=== PATIENT | female | born 1990 | race Caucasian/White ===

== ENCOUNTER → 2017-04-29 | Outpatient (CLI) | payer BC, MEDICAID ==
[~2017-04-29] MED LIST: AMOX500C2 PO; BENZ100C18 PO; BUTA1CAP39 PO; CEPH500C PO; CLIN300C3 PO; CYCL5TAB11 PO; FERR-54 PO; HYDR-3812 PO; IBP600T1 PO; IBP800T PO; IBUP-1773 PO; MDR10T PO; METR500T PO; NAPR-243 PO; NITR-65 PO; NITR100C3 PO; OCP; OMEP-10 PO; OXYC-12 PO; PHEN200T27 PO; PHEN37.555 PO; PHEN95TA30; PREN-37 PO; PREN1TAB39 PO; PRM25T PO; PROP1TAB77 PO; SPRINTEC; SULF1TAB35 PO; TPR25T PO; TRIA16.5 NS; YAZ; fiorinal
--- NOTE | 2017-04-29 15:31 | Diagnostic Imaging Report ---
INDICATION: Left lower quadrant abdominal pain. TECHNIQUE: Multiple real time mcdonnell scale sonographic images were obtained of the pelvis transabdominally and transvaginally. CORRELATION STUDY: None FINDINGS: Transabdominal imaging limited. UTERUS/ENDOMETRIUM: Uterus measures 8.0 x 3.9 x 3.4 cm. Endometrial thickness is 4 mm. Likely scar-like formation of the lower uterus from prior section. RIGHT OVARY: 2.6 x 2.0 x 2.0 cm. LEFT OVARY: 1.8 x 1.9 x 2.7 cm. Small hypoechoic mass is most compatible with cysts of both ovaries at approximately 1.2-1.3 cm in size. Additional smaller cyst and/or follicle is also present. Vascular flow is demonstrated to both ovaries. No significant free pelvic fluid. IMPRESSION: 1. Likely physiologic cysts and/or follicles of both ovaries. Otherwise, unremarkable pelvic ultrasound evaluation. Dictated by: Dictated on workstation # [id number]
== END ==
LOC: RAD 14:10
PROVIDERS: ATTEND Nurse Practitioner Community Health
DX: N83.201 Unspecified ovarian cyst, right side (principal); N83.202 Unspecified ovarian cyst, left side; R10.32 Left lower quadrant pain
CPT/HCPCS: 76830; 76856

== ENCOUNTER 2018-07-24 20:02 | Emergency (ER) | payer BC ==
[~2018-07-24] VITALS: Ht 160 cm; Wt 94.8 kg
[~2018-07-24 20:02] MED LIST changes: +ACHD5005 PO; -HYDR-3812 PO
--- OUTSIDE RECORDS SUMMARY | 2018-07-24 20:51 | XMS REPORT ---
Author Author JOSETTE GALEANA Organization [facility] Address [address] [place] [address] Care Team Providers Care Lacrosse Player Name Role Phone JOSETTE GALEANA Unavailable PROBLEMS Type Condition ICD9-CM Code RIQ93-DY Code Onset Dates Condition Status SNOMED Code Problem Constipation, unspecified constipation type K59.00 Active 02240470 Problem Chronic daily headache R51 Active 611896456 Problem Episodic cluster headache, not intractable G44.019 Active 233912943 Problem Family history of diabetes mellitus (DM) Z83.3 Active 214316922 ALLERGIES No Information ENCOUNTERS Encounter Location Date Diagnosis [facility] [id number] [place] [address] 41539- 2300 Jun, Encounter for Depo-Provera contraception Z30.42 [facility] [id number] [place] [address] 56019 -8587 15 May, 2018 Dysuria R30.0 and Acute cystitis without hematuria N30.00 [facility] [id number] [place] [address] 76540- 6620 Mar, Encounter for Depo-Provera contraception Z30.42 [facility] [id number] [place] [address] 72565- 0186 Dec, [facility] [id number] [place] [address] 58080- 9485 Dec, Encounter for Depo-Provera contraception Z30.42 [facility] [id number] [place] [address] 94537- 8000 Sep, Encounter for Depo-Provera contraception Z30.42 [facility] [id number] [place] [address] 08987- 7023 Sep, Well woman exam Z01.419 and Cervical cancer screening Z12.4 [place] [id number] [place] [address] 66357- 6549 Jul, Sports physical Z02.5 and Family history of diabetes mellitus (DM) Z83.[address] 85933- 4032 Jun, Encounter for Depo-Provera contraception Z30.42 [facility] [address] [place] [address] 34299 -6977 Jun, Other viral agents as the cause of diseases classified elsewhere B97.89 and Acute upper respiratory infection, unspecified J06.[address] 49933- 2559 Apr, Abdominal pain R10.9 and LLQ abdominal pain R10.32 [facility] [address] 10398 -5152 Apr, Abdominal pain R10.9 and Constipation, unspecified constipation type K59.[address] 02606- 4536 Mar, Encounter for Depo-Provera contraception Z30.42 [facility] [place] [id number] [place] [address] 35473 -7597 Jan, Allergic contact dermatitis, unspecified trigger L23.[address] 04303- 2955 Jan, Encounter for Depo-Provera contraception Z30.42 [facility] [address] 31818 -2526 Dec, Acute middle ear effusion, bilateral H65.[address] 29103- 7471 November, Alopecia L65.9 and Bilateral carpal tunnel syndrome G56.03 [address] [place] [address] 25164- 3230 05 Oct, 2016 Encounter for Depo-Provera contraception Z30.42 [place] [address] 28394- 1489 17 Aug, 2016 Acute bilateral low back pain without sciatica M54.5 [facility] [id number] [place] [address] 77311 -0988 14 Aug, 2016 Sore throat J02.9 ; Other viral agents as the cause of diseases classified elsewhere B97.89 and Acute upper respiratory infection, unspecified J06.9 [facility] [address] [id number] Jul, Dental examination Z01.20 [place] [id number] [place] [address] 12352- 0357 10 Jul, 2016 Encounter for Depo-Provera contraception Z30.42 [place] [address] 41507- 1323 05 Jun, 2016 Routine adult health maintenance Z00.00 [place] [address] 05225- 1996 Apr, NADIRA (secretory otitis media), unspecified laterality H65.90 ; Dizziness R42 and History of UTI Z87.440 [place] [id number] [place] [address] 55430- 3720 10 Apr, 2016 control counseling Z30.9 and Encounter for Depo- Provera contraception Z30.42 [place] [id number] [place] [address] 75721- 7255 19 Mar, 2016 [place] [address] 57434- 2158 16 Mar, 2016 Chronic daily headache R51 and Family history of diabetes mellitus (DM) Z83.3 [place] [id number] [place] [address] 30018- 1100 14 Mar, 2016 Chronic daily headache R51 ; Episodic cluster headache, not intractable G44.019 ; Family history of diabetes mellitus (DM) Z83.3 and Environmental allergies Z91.09 [facility] [id number] [place] [address] 07805- 5125 Feb, Encounter to establish care Z76.89 and Migraine with aura and without status migrainosus, not intractable G43.109 [facility] [id number] [place] [address] 44802- 1477 Oct, [facility] [id number] [place] [address] 36858- 9704 Oct, [facility] [id number] [place] [address] 02074- 7664 Sep, [facility] [id number] [place] [address] 62702- 6442 Sep, [facility] [id number] [place] [address] 84678- 2256 Apr, [facility] [id number] [place] [address] 76705- 8940 Apr, [facility] [id number] [place] [address] 16474- 4101 Jan, [facility] [id number] [place] [address] 29382- 9742 Jan, [facility] [id number] [place] [address] 44524- 8424 Jul, [facility] [id number] [place] [address] 67246- 4332 Jul, [facility] [id number] [place] [address] 40433- 6016 Jul, [facility] [id number] [place] [address] 02952- 5587 Jul, [facility] [id number] [place] [address] 45572- 0288 May, [facility] [address] [id number] [place] [address]- 7116 15 May, 2013 [facility] [place] [facility] [address] [id number] [place] [address]- 5186 Mar, [facility] [place] [facility] [address] [id number] [place] [address]- 7356 November, [facility] [place] [facility] [address] [id number] [place] [address]- 5326 November, [facility] [address] [id number] [place] [address]- 4216 November, [facility] [place] [facility] [address] [id number] [place] [address]- 5096 Oct, [facility] [place] [facility] [address] [id number] [place] [address]- 2006 Sep, [facility] [address] [id number] [place] [address]- 1646 Sep, [facility] [place] [facility] [address] [id number] [place] [address]- 6132 Apr, [facility] [place] [facility] [address] [id number] [address]- 3826 Apr, [facility] [place] [facility] [address] [id number] [place] [address]- 4436 Jul, [facility] [place] [facility] [address] [id number] [address]- 5566 28 Jun, 2010 [facility] [place] [facility] [address] [id number] [place] [address]- 0866 Jun, [facility] [place] [facility] [address] [id number] [place] [address]- 7176 Jun, [facility] [place] [facility] [address] [id number] [address]- 0526 18 May, 2010 [facility] [place] [facility] [address] [id number] [address]- 8252 04 May, 2010 [facility] [address] [address]- 3808 Feb, [facility] [address] 3680 November, [facility] [address] [address]- 4259 Jun, [facility] [id number] [place] [address] 54427- 5756 Jun, [facility] [address] [place] [address] 63764- 1719 Jun, [facility] [id number] [place] [address] 97292- 8743 May, [facility] [address] [place] [address] 35862- 1800 May, [facility] [address] [address]- 3100 May, [facility] [address] [address]- 5846 Jul, [facility] [address] [address]- 9269 November, [facility] [address] [address]- 7867 14 Oct, 2004 [facility] [address] [address]- 8678 Apr, IMMUNIZATIONS Vaccine Route Administration Date Status DEPO PROVERA (150 MG/ML) IM Intramuscular Jun 19, 2018 Administered SOCIAL HISTORY Never Assessed REASON FOR VISIT Depo Provera injection-awoods PLAN OF CARE Activity Details Follow Up 3 Months Reason: VITAL SIGNS MEDICATIONS Unknown Medications RESULTS Name Result Date Reference Range TEST, URINE (IN HOUSE) 2018-06-19 RESULTS neg Lot # [id number] Control + Exp date 11/2019 PROCEDURES Procedure Date Ordered Result Body Site URINE TEST Jun 19, 2018 DEPO PROVERA (150 MG/ML) Jun 19, 2018 THER/PROPH/DIAG INJ, SC/IM Jun 19, 2018 INSTRUCTIONS MEDICATIONS ADMINISTERED No Known Medications MEDICAL (GENERAL) HISTORY Type Description Date Medical History migraine headaches Surgical History section x 2 2011, 2014 Surgical History tonsillectomy and adenoidectomy Surgical History appendectomy
--- OUTSIDE RECORDS SUMMARY | 2018-07-24 20:51 | XMS REPORT ---
Author Author VINCENT SIMMONS [facility] [place] [facility] Address [address] [place] [address] Care Team Providers Care Director Of Student Services Name Role Phone VINCENT SIMMONS Unavailable PROBLEMS Type Condition ICD9-CM Code ZHA59-EU Code Onset Dates Condition Status SNOMED Code Problem Constipation, unspecified constipation type K59.00 Active 40374249 Problem Chronic daily headache R51 Active 551144546 Problem Episodic cluster headache, not intractable G44.019 Active 931885296 Problem Family history of diabetes mellitus (DM) Z83.3 Active 448637275 ALLERGIES Substance Reaction Event Type Date Status Imitrex 100 Mg Tablet Myalgias Non Drug Allergy Jun, Active ENCOUNTERS Encounter Location Date Diagnosis [facility] [id number] [place] [address] 94318 -1642 Jun, Viral upper respiratory tract infection J06.9 [facility] [address] 80974- 6405 Jun, Encounter for Depo-Provera contraception Z30.42 [facility] [id number] [place] [address] 25835 -5131 15 May, 2018 Dysuria R30.0 and Acute cystitis without hematuria N30.00 [facility] [id number] [place] [address] 17064- 1929 04 Mar, 2018 Encounter for Depo-Provera contraception Z30.42 [facility] [address] 86591- 8858 Dec, [facility] [id number] [place] [address] 87849- 2752 Dec, Encounter for Depo-Provera contraception Z30.42 [facility] [place] [id number] [place] [address] 12253- 5286 Sep, Encounter for Depo-Provera contraception Z30.[address] 78640- 9957 05 Sep, 2017 Well woman exam Z01.419 and Cervical cancer screening Z12.[address] 78558- 2718 Jul, Sports physical Z02.5 and Family history of diabetes mellitus (DM) Z83.[address] 11233- 5622 Jun, Encounter for Depo-Provera contraception Z30.42 [facility] [address] 75403 -6141 Jun, Other viral agents as the cause of diseases classified elsewhere B97.89 and Acute upper respiratory infection, unspecified J06.[address] 56379- 7653 Apr, Abdominal pain R10.9 and LLQ abdominal pain R10.32 [facility] [address] 50445 -3008 Apr, Abdominal pain R10.9 and Constipation, unspecified constipation type K59.[address] 86644- 7199 Mar, Encounter for Depo-Provera contraception Z30.42 [facility] [address] [place] [address] 50058 -1713 Jan, Allergic contact dermatitis, unspecified trigger L23.[address] 39783- 4893 Jan, Encounter for Depo-Provera contraception Z30.42 [facility] [address] [place] [address] 51030 -9577 Dec, Acute middle ear effusion, bilateral H65.193 [facility] [id number] [place] [address] 69605- 7631 November, Alopecia L65.9 and Bilateral carpal tunnel syndrome G56.03 [facility] [id number] [place] [address] 28332- 5072 Oct, Encounter for Depo-Provera contraception Z30.42 [place] [address] 51221- 0636 17 Aug, 2016 Acute bilateral low back pain without sciatica M54.5 [facility] [address] 64510 -4294 14 Aug, 2016 Sore throat J02.9 ; Other viral agents as the cause of diseases classified elsewhere B97.89 and Acute upper respiratory infection, unspecified J06.9 [facility] [address] [id number] Jul, Dental examination Z01.20 [place] [id number] [place] [address] 83797- 2791 Jul, Encounter for Depo-Provera contraception Z30.42 [place] [id number] [place] [address] 32074- 0562 Jun, Routine adult health maintenance Z00.00 [place] [id number] [place] [address] 15468- 0789 Apr, NADIRA (secretory otitis media), unspecified laterality H65.90 ; Dizziness R42 and History of UTI Z87.440 [place] [id number] [place] [address] 03969- 8023 Apr, control counseling Z30.9 and Encounter for Depo- Provera contraception Z30.42 [place] [id number] [place] [address] 30200- 5976 Mar, [place] [address] 86008- 5519 Mar, Chronic daily headache R51 and Family history of diabetes mellitus (DM) Z83.3 [facility] [id number] [place] [address] 90027- 0413 14 Mar, 2016 Chronic daily headache R51 ; Episodic cluster headache, not intractable G44.019 ; Family history of diabetes mellitus (DM) Z83.3 and Environmental allergies Z91.09 [facility] [id number] [place] [address] 62348- 4302 24 Feb, 2016 Encounter to establish care Z76.89 and Migraine with aura and without status migrainosus, not intractable G43.109 [facility] [address] 17214- 8850 Oct, [facility] [id number] [place] [address] 83207- 7119 Oct, [facility] [address] 66671- 7713 Sep, [facility] [id number] [place] [address] 46880- 6569 Sep, [facility] [id number] [place] [address] 40184- 4374 Apr, [facility] [id number] [place] [address] 35319- 2000 Apr, [facility] [id number] [place] [address] 86055- 6616 Jan, [facility] [id number] [place] [address] 53336- 5600 Jan, [facility] [id number] [place] [address] 28887- 5833 Jul, [facility] [id number] [place] [address] 58082- 3377 Jul, [facility] [id number] [place] [address] 67185- 9446 Jul, [facility] [address] [id number] [place] [address]- 9354 Jul, [facility] [address] [id number] [place] [address]- 8380 May, [facility] [address] [id number] [place] [address]- 7396 May, [facility] [address] [id number] [place] [address] 2546 Mar, [facility] [address] [id number] [place] [address]- 4551 November, [facility] [address] [id number] [place] [address]- 7856 November, [facility] [address] [id number] [place] [address] 2546 November, [facility] [address] [id number] [place] [address]- 0724 Oct, [facility] [address] [id number] [place] [address]- 8144 Sep, [facility] [address] [id number] [place] [address]- 9332 Sep, [facility] [address] [id number] [place] [address]- 4635 Apr, [facility] [address] [id number], [place] [address]- 4897 Apr, [facility] [address] [id number] [place] [address]- 8813 Jul, [facility] [place] [facility] [address] [id number] [place] [address]- 3176 Jun, [facility] [place] [facility] [address] [id number] [place] [address]- 2910 Jun, [facility] [address] [id number], [place] [address]- 8272 15 Jun, 2010 [facility] [address] [address]- 9935 May, [facility] [address] 3105 May, [facility] [address], [place] [address]- 4973 Feb, [facility] [address], [place] [address]- 4127 November, [facility] [address] [place] [address] 38422- 8504 Jun, [facility] [address], [place] [address]- 5997 Jun, [facility] [address] [place] [address] 08829- 7846 Jun, [facility] [address], [place] [address]- 7196 May, [facility] [address], [place] [address]- 0714 May, [facility] [address], [place] [address]- 6410 May, [facility] [address], [place] [address]- 5263 Jul, [facility] [id number] [address]- 9406 November, [facility] [address], [place] [address]- 4336 14 Oct, 2004 [facility] [address], [place] [address]- 5142 16 Apr, 2004 IMMUNIZATIONS No Known Immunizations SOCIAL HISTORY Never Assessed REASON FOR VISIT Right ear pain started Thurs/Fri JStrasserRN PLAN OF CARE Activity Details Follow Up prn Reason: VITAL SIGNS Height 64 in 2018-07-02 Weight 201.4 lbs 2018-07-02 Temperature 97.5 degrees Fahrenheit 2018-07-02 Heart Rate 100 bpm 2018-07-02 Respiratory Rate 20 2018-07-02 BMI 34.57 kg/m2 2018-07-02 Blood pressure systolic 128 mmHg 2018-07-02 Blood pressure diastolic 90 mmHg 2018-07-02 MEDICATIONS Medication Instructions Dosage Frequency Start Date End Date Duration Status Ibuprofen 200 MG Orally Three times a day 1 tablet with food or milk as needed 8h Active Depo-Provera 150 MG/ML Intramuscular every 3 months 1 ml 12 months Active Phentermine HCl 37.5 MG Orally Once a day 1 tablet 24h Active RESULTS No Results PROCEDURES No Known procedures INSTRUCTIONS MEDICATIONS ADMINISTERED No Known Medications MEDICAL (GENERAL) HISTORY Type Description Date Medical History migraine headaches Surgical History section x 2 2014 Surgical History tonsillectomy and adenoidectomy Surgical History appendectomy
--- OUTSIDE RECORDS SUMMARY | 2018-07-24 20:51 | XMS REPORT ---
Author Author BENIGNO FRANCO [facility] Address [address] [place] [address] Care Team Providers [employer] Name Role Phone BENIGNO FRANCO Unavailable PROBLEMS Type Condition ICD9-CM Code [id number] Code Onset Dates Condition Status SNOMED Code Problem Constipation, unspecified constipation type K59.00 Active 85081749 Problem Chronic daily headache R51 Active 129519945 Problem Episodic cluster headache, not intractable G44.019 Active 462425213 Problem Family history of diabetes mellitus (DM) Z83.3 Active 762953183 ALLERGIES Substance Reaction Event Type Date Status Imitrex 100 Mg Tablet Myalgias Non Drug Allergy May, Active ENCOUNTERS Encounter Location Date Diagnosis [facility] [id number] [place] [address]11 May, Dysuria R30.0 and Acute cystitis without hematuria N30.00 [place] [id number] [place] [address] 14507- 1893 04 Mar, 2018 Encounter for Depo-Provera contraception Z30.42 [place] [id number] [place] [address] 08504- 0740 Dec, [place] [address] [address]- [address]298 Dec, Encounter for Depo-Provera contraception Z30.42 [place] [address] [address]91- 4333 Sep, Encounter for Depo-Provera contraception Z30.42 [place] [id number] [place] [address] 18663- 0944 Sep, Well woman exam Z01.419 and Cervical cancer screening Z12.4 [place] [id number] [place] [address] 50590- 2570 Jul, Sports physical Z02.5 and Family history of diabetes mellitus (DM) Z83.[address] [address]- [address]10 Jun, Encounter for Depo-Provera contraception Z30.42 [facility] [address] [address] Jun, Other viral agents as the cause of diseases classified elsewhere B97.89 and Acute upper respiratory infection, unspecified J06.[address] 34342- 2057 Apr, Abdominal pain R10.9 and LLQ abdominal pain R10.32 [facility] [address] [address] -[address]14 Apr, Abdominal pain R10.9 and Constipation, unspecified constipation type K59.[address] 83674- 5187 Mar, Encounter for Depo-Provera contraception Z30.42 [facility] [address] [address]80 Jan, Allergic contact dermatitis, unspecified trigger L23.[address] [address]25- 8920 Jan, Encounter for Depo-Provera contraception Z30.42 [facility] [address] [place] [address]41 -[address]0 Dec, Acute middle ear effusion, bilateral H65.[address] 10534- 2337 November, Alopecia L65.9 and Bilateral carpal tunnel syndrome G56.[address] 71894- 9016 Oct, Encounter for Depo-Provera contraception Z30.42 [facility] [id number] [place] [address] 66285- 0244 17 Aug, 2016 Acute bilateral low back pain without sciatica M54.5 [facility] [id number] [place] [address] 98622 -7522 14 Aug, 2016 Sore throat J02.9 ; Other viral agents as the cause of diseases classified elsewhere B97.89 and Acute upper respiratory infection, unspecified J06.9 [facility] [address] [id number] Jul, Dental examination Z01.20 [place] [address] 52144- 0242 10 Jul, 2016 Encounter for Depo-Provera contraception Z30.42 [place] [address] 30847- 4130 05 Jun, 2016 Routine adult health maintenance Z00.00 [place] [address] 72248- 8443 Apr, NADIRA (secretory otitis media), unspecified laterality H65.90 ; Dizziness R42 and History of UTI Z87.440 [place] [id number] [place] [address] 14652- 3324 10 Apr, 2016 control counseling Z30.9 and Encounter for Depo- Provera contraception Z30.42 [place] [id number] [place] [address] 77319- 3558 19 Mar, 2016 [place] [address] 41133- 0790 16 Mar, 2016 Chronic daily headache R51 and Family history of diabetes mellitus (DM) Z83.3 [place] [id number] [place] [address] 60240- 6982 14 Mar, 2016 Chronic daily headache R51 ; Episodic cluster headache, not intractable G44.019 ; Family history of diabetes mellitus (DM) Z83.3 and Environmental allergies Z91.09 [facility] [address] [address] Feb, Encounter to establish care Z76.89 and Migraine with aura and without status migrainosus, not intractable G43.109 [facility] [address] [address]- 1075 Oct, [facility] [id number] [place] [address] 16229- 3823 Oct, [facility] [id number] [address]- 4156 Sep, [facility] [id number] [place] [address] 70081- 7266 Sep, [facility] [id number] [place] [address] 93254- 7274 Apr, [facility] [id number] [place] [address] 91456- 3204 Apr, [facility] [address] [address]- 0846 Jan, [facility] [id number] [address]- 3556 Jan, [facility] [address] [address]- 2429 Jul, [facility] [address] [address]- 3815 Jul, [facility] [address] [address]- 3925 Jul, [facility] [id number] [address]- 2255 Jul, [facility] [address] [address]- 4148 May, [facility] [id number] [place] [address] 48920- 5243 15 May, 2013 [facility] [address] [id number] [place] [address]- 9325 Mar, [facility] [address] [id number] [place] [address]- 9246 November, [facility] [address] [facility] [id number] [place] [address]- 8786 November, [facility] [address] [id number] [place] [address] 2546 November, [facility] [address] [id number] [place] [address]- 2544 Oct, [facility] [address] [id number] [place] [address]- 1126 Sep, [facility] [id number] [address]- 7844 Sep, [facility] [address] [id number] [place] [address]- 4583 Apr, [facility] [address] [facility] [id number] [place] [address]- 0680 Apr, [facility] [address] [id number] [place] [address]- 0275 Jul, [facility] [address] [id number] [address]- 4257 28 Jun, 2010 [facility] [place] [facility] [address] [id number] [address]- 0371 Jun, [facility] [place] [facility] [address] [id number] [place] [address]- 5583 15 Jun, 2010 [facility] [place] [facility] [address] [facility] [id number] [place] [address]- 7915 18 May, 2010 [facility] [place] [facility] [address] [facility] [id number] [place] [address]- 0754 May, [facility] [place] [facility] [address] [address]- 3649 Feb, [facility] [address] [address] November, [facility] [address] 5[address] Jun, [facility] [address] [address]- 6804 Jun, [facility] [address] [address]114 Jun, [facility] [id number] [place] [address] 459620- 9551 May, [facility] [address] [address]- 4517 May, [facility] [address] [address]- 4632 May, [facility] [address] [address]- 6992 Jul, [facility] [address] [address]- 0396 November, [facility] [address] [address]- 0251 Oct, [facility] [id number] 2874 16 Apr, 2004 IMMUNIZATIONS No Known Immunizations SOCIAL HISTORY Never Assessed REASON FOR VISIT UTI symptoms - MIGUEL Maxwell, LMP: Pt is on Depo-Provera and spots occasionally, last injection ~ 2 months ago PLAN OF CARE Activity Details Follow Up prn Reason: VITAL SIGNS Height 64 in 2018-06-01 Weight 198.6 lbs 2018-06-01 Temperature 98.4 degrees Fahrenheit 2018-06-01 Heart Rate 96 bpm 2018-06-01 Respiratory Rate 18 2018-06-01 BMI 34.09 kg/m2 2018-06-01 Blood pressure systolic 120 mmHg 2018-06-01 Blood pressure diastolic 80 mmHg 2018-06-01 MEDICATIONS Medication Instructions Dosage Frequency Start Date End Date Duration Status Pyridium 200 MG Orally Three times a day 1 tablet after meals 8h May, 2 day(s) Active Macrobid 100 MG Orally every 12 hrs 1 capsule with food 12h May, 3 days Active Depo-Provera 150 MG/ML Intramuscular every 3 months 1 ml 12 months Active Phentermine HCl 37.5 MG Orally Once a day 1 tablet 24h Active RESULTS No Results PROCEDURES Procedure Date Ordered Result Body Site URINALYSIS, AUTO, W/O SCOPE Jun 01, 2018 URINE CULTURE/COLONY COUNT Jun 01, 2018 INSTRUCTIONS MEDICATIONS ADMINISTERED No Known Medications MEDICAL (GENERAL) HISTORY Type Description Date Medical History migraine headaches Surgical History section x 2 2014 Surgical History tonsillectomy and adenoidectomy Surgical History appendectomy
--- OUTSIDE RECORDS SUMMARY | 2018-07-24 20:51 | XMS REPORT ---
Author Author JOSETTE GALEANA Organization [facility] Address [address] [place] [address] Care Team Providers Care Office Professional Name Role Phone JOSETTE GALEANA Unavailable PROBLEMS Type Condition ICD9-CM Code [id number] Code Onset Dates Condition Status SNOMED Code Problem Constipation, unspecified constipation type K59.00 Active 76714987 Problem Chronic daily headache R51 Active 793158196 Problem Episodic cluster headache, not intractable G44.019 Active 735580048 Problem Family history of diabetes mellitus (DM) Z83.3 Active 069942411 ALLERGIES No Information ENCOUNTERS Encounter Location Date Diagnosis [place] [address] [address]115 Mar, Encounter for Depo-Provera contraception Z30.42 [place] [id number] [place] [address] 89129- 7918 Dec, [place] [address] 97950- 0355 Dec, Encounter for Depo-Provera contraception Z30.42 [place] [id number] [place] [address] 08861- 9822 Sep, Encounter for Depo-Provera contraception Z30.42 [place] [id number] [place] [address] 47258- 3448 05 Sep, 2017 Well woman exam Z01.419 and Cervical cancer screening Z12.4 [place] [address] 56282- 4381 Jul, Sports physical Z02.5 and Family history of diabetes mellitus (DM) Z83.3 [place] [address] 44535- 2194 Jun, Encounter for Depo-Provera contraception Z30.42 [facility] [address] [place] [id number] [place] [address] 23120 -5340 Jun, Other viral agents as the cause of diseases classified elsewhere B97.89 and Acute upper respiratory infection, unspecified J06.9 [address] [id number] [place] [address] 99767- 2073 Apr, Abdominal pain R10.9 and LLQ abdominal pain R10.32 [facility] [address] [place] [address] 02559 -7241 Apr, Abdominal pain R10.9 and Constipation, unspecified constipation type K59.[address] [address]164- 9478 Mar, Encounter for Depo-Provera contraception Z30.42 [facility] [address] 110[address] -0388 Jan, Allergic contact dermatitis, unspecified trigger L23.[address] 20771- 0686 Jan, Encounter for Depo-Provera contraception Z30.42 [facility] [place] [id number] [place] [address] 69208 -4630 Dec, Acute middle ear effusion, bilateral H65.193 [place] [address] 84080- 6284 November, Alopecia L65.9 and Bilateral carpal tunnel syndrome G56.[address] 14924- 0461 Oct, Encounter for Depo-Provera contraception Z30.42 [place] [id number] [place] [address] 58321- 2131 17 Aug, 2016 Acute bilateral low back pain without sciatica M54.5 [facility] [address] [place], [place] [address] [address] -9375 14 Aug, 2016 Sore throat J02.9 ; Other viral agents as the cause of diseases classified elsewhere B97.89 and Acute upper respiratory infection, unspecified J06.9 [facility] [id number] [place] [address] [id number] 31 Jul, 2016 Dental examination Z01.[address] 28650- 4755 10 Jul, 2016 Encounter for Depo-Provera contraception Z30.42 [place] [address] 26629- 5682 05 Jun, 2016 Routine adult health maintenance Z00.[address] 00385- 9150 26 Apr, 2016 NADIAR (secretory otitis media), unspecified laterality H65.90 ; Dizziness R42 and History of UTI Z87.440 [place] [id number] [place] [address] 51042- 8535 10 Apr, 2016 control counseling Z30.9 and Encounter for Depo- Provera contraception Z30.42 [place] [id number] [place] [address] 20203- 1408 19 Mar, [address] 88369- 7868 16 Mar, 2016 Chronic daily headache R51 and Family history of diabetes mellitus (DM) Z83.3 [address] [id number] [place] [address] 92287- 8497 14 Mar, 2016 Chronic daily headache R51 ; Episodic cluster headache, not intractable G44.019 ; Family history of diabetes mellitus (DM) Z83.3 and Environmental allergies Z91.09 [place] [id number] [place] [address] 27128- 0069 24 Feb, 2016 Encounter to establish care Z76.89 and Migraine with aura and without status migrainosus, not intractable G43.[address] [id number] [place] [address]- 5391 14 Oct, 2014 [facility] [address] [id number] [place] [address]- 2009 Oct, [facility] [place] [facility] [address] [id number] [place] [address]- 1539 Sep, [facility] [address] [id number] [place] [address]- 4847 Sep, [facility] [place] [facility] [address] [id number] [place] [address]- 5582 Apr, [facility] [place] [facility] [address] [id number] [place] [address]- 5573 Apr, [facility] [place] [facility] [address] [id number] [place] [address]- 5291 Jan, [facility] [place] [facility] [address] [id number] [place] [address]- 3599 Jan, [facility] [address] [id number] [place] [address]- 1530 Jul, [facility] [place] [facility] [address] [id number] [place] [address]- 5552 Jul, [facility] [address] [id number] [place] [address]- 0941 Jul, [facility] [place] [facility] [address] [id number] [place] [address]- 7370 Jul, [facility] [place] [facility] [address] [id number] [place] [address]- 3769 May, [facility] [place] [facility] [address] [id number] [place] [address]- 8900 May, [facility] [place] [facility] [address] [id number] [place] [address]- 2546 Mar, [facility] [place] [facility] [address] [id number] [place] [address]- 0398 November, [facility] [address] [id number] [place] [address]- 4676 November, [facility] [place] [facility] [address] [id number] [place] [address]- 8816 November, [facility] [place] [facility] [address] [id number] [place] [address]- 6144 Oct, [facility] [place] [facility] [address] [id number] [place] [address]- 8137 Sep, [facility] [address] [id number] [place] [address]- 1086 Sep, [facility] [place] [facility] [address] [id number] [place] [address]- 3001 Apr, [facility] [place] [facility] [address] [id number] [place] [address]- 1604 Apr, [facility] [address] [id number] [place] [address]- 1004 Jul, [facility] [place] [facility] [address] [id number] [place] [address]- 2860 Jun, [facility] [place] [facility] [address] [id number] [place] [address]- 8128 Jun, [facility] [place] [facility] [address] [id number] [place] [address]- 4016 Jun, [facility] [place] [facility] [address] [id number], [place] [address]- 0800 May, [facility] [place] [facility] [address] [id number] [place] [address]- 4866 May, [facility] [place] [facility] [address] [id number] [place] [address]- 5756 Feb, [facility] [place] [facility] [address] [id number] [place] [address]- 0432 November, [facility] [place] [facility] [id number]- [address]208 15 Jun, 2009 [facility] [id number] [address]43 Jun, [facility] [id number] 2080 Jun, [facility] [id number] [address]- 6781 May, [facility] [address], [place] [address]- 2215 May, [facility] [address], [place] [address]- 9910 May, [facility] [address] 1297 Jul, [facility] [address] 0327 November, [facility] [id number] [address]- 5731 Oct, [facility] [address] [address] Apr, IMMUNIZATIONS Vaccine Route Administration Date Status DEPO PROVERA (150 MG/ML) IM Intramuscular Mar 21, 2018 Administered SOCIAL HISTORY Never Assessed REASON FOR VISIT Depo Provera injection PLAN OF CARE Activity Details Follow Up Between Jun 06- Jun 20 Reason: VITAL SIGNS MEDICATIONS Unknown Medications RESULTS Name Result Date Reference Range TEST, URINE (IN HOUSE) 2018-03-21 RESULTS NEG Lot # [id number] Control + Exp date 09/2019 PROCEDURES Procedure Date Ordered Result Body Site URINE TEST Mar 21, 2018 DEPO PROVERA (150 MG/ML) Mar 21, 2018 THER/PROPH/DIAG INJ, SC/IM Mar 21, 2018 INSTRUCTIONS MEDICATIONS ADMINISTERED No Known Medications MEDICAL (GENERAL) HISTORY Type Description Date Medical History migraine headaches Surgical History section x 2 2014 Surgical History tonsillectomy and adenoidectomy Surgical History appendectomy
--- OUTSIDE RECORDS SUMMARY | 2018-07-24 20:52 | XMS REPORT ---
Author Author JOSETTE GALEANA Organization [facility] Address [address] [place] [address] Care Team Providers Care Chip Silo Tender Name Role Phone JOSETTE GALEANA Unavailable PROBLEMS Type Condition ICD9-CM Code BTR18-BF Code Onset Dates Condition Status SNOMED Code Problem Constipation, unspecified constipation type K59.00 Active 74402812 Problem Chronic daily headache R51 Active 641207717 Problem Episodic cluster headache, not intractable G44.019 Active 983812646 Problem Family history of diabetes mellitus (DM) Z83.3 Active 418353719 ALLERGIES Substance Reaction Event Type Date Status Imitrex 100 Mg Tablet Myalgias Non Drug Allergy Sep, Active ENCOUNTERS Encounter Location Date Diagnosis [place] [id number] [place] [address]85- 7033 Dec, [place] [id number] [place] [address] 34419- 1142 Dec, Encounter for Depo-Provera contraception Z30.42 [place] [id number] [place] [address] 50697- 8055 Sep, Encounter for Depo-Provera contraception Z30.42 [place] [id number] [place] [address] 79492- 4659 Sep, Well woman exam Z01.419 and Cervical cancer screening Z12.4 [place] [address] [address]- [address] Jul, Sports physical Z02.5 and Family history of diabetes mellitus (DM) Z83.3 [place] [id number] [place] [address] 52759- 0440 Jun, Encounter for Depo-Provera contraception Z30.42 [facility] [address] [place] [id number] [place] [address]6570 -5272 Jun, Other viral agents as the cause of diseases classified elsewhere B97.89 and Acute upper respiratory infection, unspecified J06.[address] [address]- 8448 Apr, Abdominal pain R10.9 and LLQ abdominal pain R10.32 [facility] [address] [address] Apr, Abdominal pain R10.9 and Constipation, unspecified constipation type K59.[address] 61990- 5533 Mar, Encounter for Depo-Provera contraception Z30.42 [facility] [address] [address] Jan, Allergic contact dermatitis, unspecified trigger L23.[address] 21674- 3500 Jan, Encounter for Depo-Provera contraception Z30.42 [facility] [address] [address]10 Dec, Acute middle ear effusion, bilateral H65.[address] 51782- 7783 November, Alopecia L65.9 and Bilateral carpal tunnel syndrome G56.[address] 20563- 5299 Oct, Encounter for Depo-Provera contraception Z30.[address] 37190- 1283 17 Aug, 2016 Acute bilateral low back pain without sciatica M54.5 [facility] [address] 8[address] -7138 14 Aug, 2016 Sore throat J02.9 ; Other viral agents as the cause of diseases classified elsewhere B97.89 and Acute upper respiratory infection, unspecified J06.9 [facility] [address] [place] [address] [id number] Jul, Dental examination Z01.20 [place] [id number] [place] [address] 64121- 0249 10 Jul, 2016 Encounter for Depo-Provera contraception Z30.42 [place] [address] 17792- 7711 05 Jun, 2016 Routine adult health maintenance Z00.00 [place] [address] 61746- 5744 26 Apr, 2016 NADIRA (secretory otitis media), unspecified laterality H65.90 ; Dizziness R42 and History of UTI Z87.[address] 08496- 5858 Apr, control counseling Z30.9 and Encounter for Depo- Provera contraception Z30.42 [place] [id number] [place] [address] 61341- 8499 19 Mar, [address] [place] [id number] [place] [address] 20111- 3977 16 Mar, 2016 Chronic daily headache R51 and Family history of diabetes mellitus (DM) Z83.3 [place] [id number] [place] [address] 09780- 1835 14 Mar, 2016 Chronic daily headache R51 ; Episodic cluster headache, not intractable G44.019 ; Family history of diabetes mellitus (DM) Z83.3 and Environmental allergies Z91.[address] 36434- 0438 24 Feb, 2016 Encounter to establish care Z76.89 and Migraine with aura and without status migrainosus, not intractable G43.[address] 70752- 5490 Oct, [facility] [address] [id number] [place] [address] 4179 Oct, [facility] [place] [facility] [address] [id number] [place] [address]- 7529 Sep, [facility] [place] [facility] [address] [id number] [place] [address]- 6718 Sep, [facility] [place] [facility] [address] [id number] [place] [address]- 8206 Apr, [facility] [address] [id number] [place] [address]- 1999 Apr, [facility] [place] [facility] [address] [id number] [place] [address]- 8059 Jan, [facility] [address] [id number] [place] [address]- 7265 Jan, [facility] [address] [id number] [place] [address]- 3718 Jul, [facility] [place] [facility] [address] [id number] [place] [address]- 1307 Jul, [facility] [place] [facility] [address] [id number] [place] [address]- 7308 Jul, [facility] [place] [facility] [address] [id number] [place] [address]- 0735 Jul, [facility] [place] [facility] [address] [id number] [place] [address]- 7574 May, [facility] [place] [facility] [address] [id number] [place] [address]- 3147 May, [facility] [place] [facility] [address] [id number] [place] [address]- 3326 Mar, [facility] [place] [facility] [address] [id number] [place] [address]- 6221 November, [facility] [place] [facility] [address] [id number] [place] [address]- 5282 November, [facility] [address] [id number] [place] [address]- 8048 November, [facility] [place] [facility] [address] [id number] [place] [address]- 7886 Oct, [facility] [place] [facility] [address] [id number] [place] [address]- 3086 Sep, [facility] [place] [facility] [address] [id number] [place] [address]- 5158 Sep, [facility] [place] [facility] [address] [id number] [place] [address]- 4505 Apr, [facility] [place] [facility] [address] [id number] [place] [address]- 7948 Apr, [facility] [address] [id number] [place] [address]- 2649 Jul, [facility] [place] [facility] [address] [id number] [place] [address]- 0227 28 Jun, 2010 [facility] [place] [facility] [address] [id number] [place] [address]- 3259 15 Jun, 2010 [facility] [place] [facility] [address] [id number] [place] [address]- 7347 15 Jun, 2010 [facility] [place] [facility] [address] [id number] [place] [address]- 0828 May, [facility] [place] [facility] [address] [id number] [place] [address]- 8081 04 May, 2010 [facility] [place] [facility] [address] [id number] [place] [address]- 7906 Feb, [facility] [place] [facility] [address] [id number] [place] [address]- 0512 13 Nov, 2009 [facility] [place] [facility] [address] [id number] [place] [address]- 1307 15 Jun, 2009 [facility] [place] [facility] [address] [address]- 6666 Jun, [facility] [address] [address]- 4612 Jun, [facility] [address] [address]- 7094 May, [facility] [address] [address]- 3732 May, [facility] [address] [address]- 5846 May, [facility] [id number] [place] [address] 23810- 9013 Jul, [facility] [address] [address]- 1370 November, [facility] [address], [place] [address]- 0887 Oct, [facility] [address], [place] [address]- 0650 Apr, IMMUNIZATIONS No Known Immunizations SOCIAL HISTORY Never Assessed REASON FOR VISIT Well Woman Exam, PT states no vaginal concerns, Possibly due for WenoClif Qureshi MA PLAN OF CARE Activity Details Follow Up prn Reason: Pending Test PAP REFLEX TO HPV IF ASCUS VITAL SIGNS Height 64 in 2017-09-19 Weight 226 lbs 2017-09-19 Temperature 98.1 degrees Fahrenheit 2017-09-19 Heart Rate 80 bpm 2017-09-19 Respiratory Rate 18 2017-09-19 BMI 38.79 kg/m2 2017-09-19 Blood pressure systolic 130 mmHg 2017-09-19 Blood pressure diastolic 73 mmHg 2017-09-19 MEDICATIONS Medication Instructions Dosage Frequency Start Date End Date Duration Status Depo-Provera 150 MG/ML 1 ml Active RESULTS Name Result Date Reference Range SUREPATH PAP RFX HPV mRNA E6/E7 2017-09-19 CLINICAL INFORMATION: NO C/O LMP: NO PERIODS PREV. PAP: 07/2015 PREV. BX: SOURCE: [employer] STATEMENT OF ADEQUACY: INTERPRETATION/RESULT: REPORTS ANALYSIS MANAGER: PROCEDURES Procedure Date Ordered Result Body Site SPECIMEN HANDLING September 19, 2017 INSTRUCTIONS MEDICATIONS ADMINISTERED No Known Medications MEDICAL (GENERAL) HISTORY Type Description Date Medical History migraine headaches Surgical History section x 2 2014 Surgical History tonsillectomy and adenoidectomy Surgical History appendectomy
--- OUTSIDE RECORDS SUMMARY | 2018-07-24 20:52 | XMS REPORT ---
Author Author JOSETTE GALEANA Organization [facility] Address [address] [place] [address] Care Team Providers Care Biology Specialist Name Role Phone JOSETTE GALEANA Unavailable PROBLEMS Type Condition ICD9-CM Code [id number] Code Onset Dates Condition Status SNOMED Code Problem Constipation, unspecified constipation type K59.00 Active 39150840 Problem Chronic daily headache R51 Active 384194389 Problem Episodic cluster headache, not intractable G44.019 Active 114321695 Problem Family history of diabetes mellitus (DM) Z83.3 Active 490654863 ALLERGIES No Information ENCOUNTERS Encounter Location Date Diagnosis [place] [address] [address] 2985 Dec, [facility] [address] [place] [address] 56587- 0024 Dec, Encounter for Depo-Provera contraception Z30.42 [place] [address] 22087- 1731 Sep, Encounter for Depo-Provera contraception Z30.42 [place] [id number] [place] [address] 71714- 1132 05 Sep, 2017 Well woman exam Z01.419 and Cervical cancer screening Z12.4 [place] [address] 34136- 1113 Jul, Sports physical Z02.5 and Family history of diabetes mellitus (DM) Z83.3 [place] [address] 61535- 4301 Jun, Encounter for Depo-Provera contraception Z30.42 [facility] [address] [address]59 Jun, Other viral agents as the cause of diseases classified elsewhere B97.89 and Acute upper respiratory infection, unspecified J06.9 [place] [id number] [place] [address] 90790- 9670 Apr, Abdominal pain R10.9 and LLQ abdominal pain R10.32 [facility] [address] [place] [address] 81992 -3427 Apr, Abdominal pain R10.9 and Constipation, unspecified constipation type K59.00 [place] [id number] [place] [address] 11667- 2436 Mar, Encounter for Depo-Provera contraception Z30.42 [facility] [place] [id number] [place] [address] 07004 -7225 Jan, Allergic contact dermatitis, unspecified trigger L23.[address] [address]77- 1173 Jan, Encounter for Depo-Provera contraception Z30.42 [facility] [place] [id number] [place] [address] 72808 -0298 Dec, Acute middle ear effusion, bilateral H65.193 [place] [id number] [place] [address] 31332- 2864 November, Alopecia L65.9 and Bilateral carpal tunnel syndrome G56.03 [place] [address] 14658- 3376 Oct, Encounter for Depo-Provera contraception Z30.42 [place] [id number] [place] [address] 32295- 1351 17 Aug, 2016 Acute bilateral low back pain without sciatica M54.5 [facility] [address] [place] [id number] [place] [address] 09971 -9966 14 Aug, 2016 Sore throat J02.9 ; Other viral agents as the cause of diseases classified elsewhere B97.89 and Acute upper respiratory infection, unspecified J06.9 [facility] [address] [place] [address] [id number] Jul, Dental examination Z01.20 [place] [address] [id number] [place] [address] 97699- 7873 10 Jul, 2016 Encounter for Depo-Provera contraception Z30.42 [place] [address] 23813- 8609 05 Jun, 2016 Routine adult health maintenance Z00.00 [place] [id number] [place] [address] 61370- 6762 26 Apr, 2016 NADIRA (secretory otitis media), unspecified laterality H65.90 ; Dizziness R42 and History of UTI Z87.440 [place] [address] 40022- 5645 10 Apr, 2016 control counseling Z30.9 and Encounter for Depo- Provera contraception Z30.42 [place] [id number] [place] [address] 47949- 6100 19 Mar, [address] 63997- 2569 16 Mar, 2016 Chronic daily headache R51 and Family history of diabetes mellitus (DM) Z83.3 [place] [address] [id number] [place] [address] 75679- 1150 14 Mar, 2016 Chronic daily headache R51 ; Episodic cluster headache, not intractable G44.019 ; Family history of diabetes mellitus (DM) Z83.3 and Environmental allergies Z91.09 [place] [id number] [place] [address] 97454- 6580 24 Feb, 2016 Encounter to establish care Z76.89 and Migraine with aura and without status migrainosus, not intractable G43.109 [place] [id number] [place] [address] 03621- 1405 14 Oct, 2014 [place] [address] 28713- 1694 Oct, [facility] [address] [id number] [place] [address]- 5958 Sep, [facility] [place] [facility] [address] [id number] [place] [address]- 0964 Sep, [facility] [place] [facility] [address] [id number] [place] [address]- 7814 Apr, [facility] [place] [facility] [address] [id number] [place] [address]- 0119 Apr, [facility] [place] [facility] [address] [id number] [place] [address]- 5246 Jan, [facility] [place] [facility] [address] [id number] [place] [address]- 0646 Jan, [facility] [place] [facility] [address] [id number] [place] [address]- 3131 Jul, [facility] [place] [facility] [address] [id number] [place] [address]- 2523 Jul, [facility] [place] [facility] [address] [id number] [place] [address]- 5271 Jul, [facility] [place] [facility] [address] [id number] [place] [address]- 8185 Jul, [facility] [place] [facility] [address] [id number] [address]- 0827 May, [facility] [place] [facility] [address] [id number] [place] [address]- 6931 May, [facility] [place] [facility] [address] [id number] [place] [address]- 2719 Mar, [facility] [place] [facility] [address] [id number] [place] [address]- 1835 November, [facility] [place] [facility] [address] [id number] [place] [address]- 5301 November, [facility] [place] [facility] [address] [id number] [place] [address]- 2546 November, [facility] [address] [id number] [place] [address]- 4826 Oct, [facility] [address] [id number] [place] [address]- 2546 Sep, [facility] [address] [id number] [place] [address] 2546 Sep, [facility] [address] [id number] [place] [address] 2547 Apr, [facility] [address] [id number] [place] [address]- 0866 Apr, [facility] [address] [id number] [place] [address]- 0476 Jul, [facility] [address] [id number] [place] [address]- 2388 Jun, [facility] [address] [id number] [place] [address]- 9925 15 Jun, 2010 [facility] [address] [id number] [place] [address]- 7536 15 Jun, 2010 [facility] [address] [id number] [place] [address]- 9467 May, [facility] [address] [id number] [place] [address]- 2546 May, [facility] [address] [id number] [place] [address]- 5857 Feb, [facility] [place] [facility] [address] [id number] [place] [address]- 3736 November, [facility] [address] [id number] [place] [address]- 1176 15 Jun, 2009 [facility] [place] [facility] [address] [id number] [place] [address]- 8530 Jun, [facility] [address] [place] [id number] [address]- 1156 Jun, [facility] [address] [address]- 7376 May, [facility] [address] [address]- 6037 May, [facility] [address] [address]- 9602 May, [facility] [address] [address]- 4625 Jul, [facility] [address] [address]- 0900 November, [facility] [address] [address]- 8603 14 Oct, 2004 [facility] [address] [address]- 1447 16 Apr, 2004 IMMUNIZATIONS No Known Immunizations SOCIAL HISTORY Never Assessed REASON FOR VISIT Depo Provera injection PLAN OF CARE Activity Details Follow Up 3 Months Reason: VITAL SIGNS MEDICATIONS Unknown Medications RESULTS Name Result Date Reference Range TEST, URINE (IN HOUSE) 2017-12-28 RESULTS Negative Lot # [id number] Control + Exp date [id number] PROCEDURES Procedure Date Ordered Result Body Site URINE TEST December 28, 2017 INSTRUCTIONS MEDICATIONS ADMINISTERED No Known Medications MEDICAL (GENERAL) HISTORY Type Description Date Medical History migraine headaches Surgical History section x 2 2011, 2014 Surgical History tonsillectomy and adenoidectomy Surgical History appendectomy
--- OUTSIDE RECORDS SUMMARY | 2018-07-24 20:52 | XMS REPORT ---
Author Author JOSETTE GALEANA Organization [facility] Address [address] [place] [address] Care Team Providers Care Food Service Clerk Name Role Phone JOSETTE GALEANA Unavailable PROBLEMS Type Condition ICD9-CM Code RKI45-ON Code Onset Dates Condition Status SNOMED Code Problem Constipation, unspecified constipation type K59.00 Active 32231261 Problem Chronic daily headache R51 Active 888802676 Problem Episodic cluster headache, not intractable G44.019 Active 891916773 Problem Family history of diabetes mellitus (DM) Z83.3 Active 026418196 ALLERGIES No Information ENCOUNTERS Encounter Location Date Diagnosis [place] [address] [address] Dec, [facility] [address] [address] Dec, Encounter for Depo-Provera contraception Z30.42 [place] [address] [address] Sep, Encounter for Depo-Provera contraception Z30.42 [place] [address] [place] [id number] [place] [address] Sep, Well woman exam Z01.419 and Cervical cancer screening Z12.4 [place] [address] [address] Jul, Sports physical Z02.5 and Family history of diabetes mellitus (DM) Z83.3 [place] [address] [address] Jun, Encounter for Depo-Provera contraception Z30.42 [facility] [address] [place] [id number] [place] [address] Jun, Other viral agents as the cause of diseases classified elsewhere B97.89 and Acute upper respiratory infection, unspecified J06.9 [place] [address] [address] Apr, Abdominal pain R10.9 and LLQ abdominal pain R10.32 [facility] W[facility] IN [address] [address] Apr, Abdominal pain R10.9 and Constipation, unspecified constipation type K59.00 [place] [address] [address] Mar, Encounter for Depo-Provera contraception Z30.42 [facility] W[facility] IN [address] [address] Jan, Allergic contact dermatitis, unspecified trigger L23.[address] [address] Jan, Encounter for Depo-Provera contraception Z30.42 [facility] IN [address] [address] Dec, Acute middle ear effusion, bilateral H65.[address] [address]- [address] November, Alopecia L65.9 and Bilateral carpal tunnel syndrome G56.[address] [address] Oct, Encounter for Depo-Provera contraception Z30.[address] [address]- [address]206 17 Aug, 2016 Acute bilateral low back pain without sciatica M54.5 [facility] [place] [id number] [place] [address] -[address] 14 Aug, 2016 Sore throat J02.9 ; Other viral agents as the cause of diseases classified elsewhere B97.89 and Acute upper respiratory infection, unspecified J06.9 [facility] [address] [place] [id number] Jul, Dental examination Z01.20 [place] [address] [place] [id number] [place] [address]18- 7998 10 Jul, 2016 Encounter for Depo-Provera contraception Z30.42 [place] [address] [address]- [address] 05 Jun, 2016 Routine adult health maintenance Z00.00 [place] [address] [address] Apr, NADIRA (secretory otitis media), unspecified laterality H65.90 ; Dizziness R42 and History of UTI Z87.440 [place] [address] [address]- 4[address] 10 Apr, 2016 control counseling Z30.9 and Encounter for Depo- Provera contraception Z30.42 [place] [address] [place] [id number] [place] [address] 6[address]- 9[address] 19 Mar, [address] [address]- 65[address] 16 Mar, 2016 Chronic daily headache R51 and Family history of diabetes mellitus (DM) Z83.3 [place] [address] [place] [id number] [place] [address]- 2351 14 Mar, 2016 Chronic daily headache R51 ; Episodic cluster headache, not intractable G44.019 ; Family history of diabetes mellitus (DM) Z83.3 and Environmental allergies Z91.09 [place] [address] [place] [id number] [place] [address]244- 5399 24 Feb, 2016 Encounter to establish care Z76.89 and Migraine with aura and without status migrainosus, not intractable G43.109 [place] [address] [address]- 0[address] 14 Oct, 2014 [place] [address] [address] Oct, [facility] [place] [facility] [address] [id number] [place] [address]- 3[address] Sep, [facility] [place] [facility] [address] [id number] [place] [address]- 6453 Sep, [facility] [place] [facility] [address] [id number] [place] [address]- 7430 Apr, [facility] [place] [facility] [address] [id number] [place] [address]- 4225 Apr, [facility] [place] [facility] [address] [id number] [place] [address]- 0886 Jan, [facility] [place] [facility] [address] [id number] [place] [address] Jan, [facility] [place] [facility] [address] [id number] [place] [address]- 5779 Jul, [facility] [place] [facility] [address] [id number] [place] [address]- 1967 Jul, [facility] [place] [facility] [address] [id number] [place] [address]- 0344 Jul, [facility] [place] [facility] [address] [id number] [place] [address]- 0349 Jul, [facility] [place] [facility] [address] [id number], [place] [address] May, [facility] [place] [facility] [address] [id number], [place] [address] 9772 May, [facility] [place] [facility] [address] [id number] [place] [address]- 7526 Mar, [facility] [place] [facility] [address] [id number] [place] [address]- 1046 November, [facility] [place] [facility] [address] [id number] [place] [address]- 4788 November, [facility] [place] [facility] [address] [id number] [place] [address]- 2546 November, [facility] [address] [id number] [place] [address]- 2776 Oct, [facility] [address] [id number] [place] [address]- 2546 Sep, [facility] [address] [id number] [place] [address] 2546 Sep, [facility] [address] [id number] [place] [address] 2549 Apr, [facility] [id number] [place] [address], [place] [address]- 1339 Apr, [facility] [address] [id number] [place] [address]- 6036 Jul, [facility] [address] [id number] [place] [address]- 6419 28 Jun, 2010 [facility] [address] [id number] [place] [address]- 5734 15 Jun, 2010 [facility] [address] [id number] [place] [address]- 6874 15 Jun, 2010 [facility] [address] [facility] [id number] [place] [address]- 3325 18 May, 2010 [facility] [address] [id number] [place] [address]- 5705 04 May, 2010 [facility] [address] [id number] [place] [address]- 4983 Feb, [facility] [address] [id number] [place] [address]- 1167 13 Nov, 2009 [facility] [address] [id number] [place] [address]- 7494 15 Jun, 2009 [facility] [address] [id number] [place] [address]- 4415 15 Jun, 2009 [facility] [address] [id number] [address]- 37[address] Jun, [facility] [address] [id number] [address] 2546 May, [facility] [address] [id number], [place] [address]- 3[address] May, [facility] [address], [place] [address]- 25[address] May, [facility] [address] [id number], [place] [address]- 96[address] Jul, [facility] [address], [place] [address] November, [facility] [address], [place] [address]- 12[address] 14 Oct, 2004 [facility] [address] [place] [id number], [place] [address] Apr, IMMUNIZATIONS Vaccine Route Administration Date Status DEPO PROVERA (150 MG/ML) IM Intramuscular October 03, 2017 Administered SOCIAL HISTORY Never Assessed REASON FOR VISIT Depo Provera injection--[facility] PLAN OF CARE Activity Details Follow Up 3 Months Reason: VITAL SIGNS MEDICATIONS Unknown Medications RESULTS Name Result Date Reference Range TEST, URINE (IN HOUSE) 2017-10-03 RESULTS Negative Lot # [id number] Control + Exp date 02/14/19 PROCEDURES Procedure Date Ordered Result Body Site URINE TEST October 03, 2017 DEPO PROVERA (150 MG/ML) October 03, 2017 THER/PROPH/DIAG INJ, SC/IM October 03, 2017 INSTRUCTIONS MEDICATIONS ADMINISTERED No Known Medications MEDICAL (GENERAL) HISTORY Type Description Date Medical History migraine headaches Surgical History section x 2 2014 Surgical History tonsillectomy and adenoidectomy Surgical History appendectomy
--- OUTSIDE RECORDS SUMMARY | 2018-07-24 20:52 | XMS REPORT ---
Author Author ANSHU ARIZMENDI Organization [facility] Address [address] [place] [address] Care Team Providers Care Security Assistant Name Role Phone GINA ARIZMENDINETTE Unavailable PROBLEMS Type Condition ICD9-CM Code DNA11-KC Code Onset Dates Condition Status SNOMED Code Problem Chronic daily headache R51 Active 729077798 Problem Episodic cluster headache, not intractable G44.019 Active 081441414 Problem Family history of diabetes mellitus (DM) Z83.3 Active 822398666 Assessment Chronic daily headache R51 16 Mar, 2016 Active [id number] ALLERGIES No Known Allergies SOCIAL HISTORY No smoking Hx information available PLAN OF CARE VITAL SIGNS MEDICATIONS No Known Medications RESULTS Name Result Date Reference Range TSH 2016-04-02 TSH 0.888 0.450-4.500 CBC 2016-04-02 WBC 9.5 3.4-10.8 RBC 4.83 3.77-5.28 Hemoglobin 13.3 11.1-15.9 Hematocrit 40.9 34.0-46.6 MCV 85 79-97 MCH 27.5 26.6-33.0 MCHC 32.5 31.5-35.7 RDW 14.7 12.3-15.4 Platelets 202 150-379 Neutrophils 62 Lymphs 25 Monocytes 11 Eos 2 Basos 0 Neutrophils (Absolute) 5.9 1.4-7.0 Lymphs (Absolute) 2.3 0.7-3.1 Monocytes(Absolute) 1.0 0.1-0.9 Eos (Absolute) 0.2 0.0-0.4 Baso (Absolute) 0.0 0.0-0.2 Immature Granulocytes 0 Immature Grans (Abs) 0.0 0.0-0.1 LIPID PANEL 2016-04-02 Cholesterol, Total 179 100-199 Triglycerides 119 0-149 HDL Cholesterol 44 >39 VLDL Cholesterol Cirilo 24 5-40 LDL Cholesterol Calc 111 0-99 CMP 2016-04-02 Glucose, Serum 82 65-99 BUN 10 6-20 Creatinine, Serum 0.78 0.57-1.00 eGFR If NonAfricn Am 107 >59 eGFR If Africn Am 123 >59 BUN/Creatinine Ratio 13 8-20 Sodium, Serum 141 134-144 Potassium, Serum 4.1 3.5-5.2 Chloride, Serum 104 97-108 Carbon Dioxide, Total 21 18-29 Calcium, Serum 9.3 8.7-10.2 Protein, Total, Serum 6.4 6.0-8.5 Albumin, Serum 4.2 3.5-5.5 Globulin, Total 2.2 1.5-4.5 A/G Ratio 1.9 1.1-2.5 Bilirubin, Total 0.4 0.0-1.2 Alkaline Phosphatase, S 70 39-117 AST (SGOT) 12 0-40 ALT (SGPT) 13 0-32 PROCEDURES Procedure Date Ordered Related Diagnosis Body Site ASSAY THYROID STIM HORMONE Apr 02, 2016 COMPLETE CBC W/AUTO DIFF WBC Apr 02, 2016 COMPREHEN METABOLIC PANEL Apr 02, 2016 LIPID PANEL Apr 02, 2016 VENIPUNCT, ROUTINE* Apr 02, 2016 IMMUNIZATIONS No Known Immunizations
--- OUTSIDE RECORDS SUMMARY | 2018-07-24 20:52 | XMS REPORT ---
Author Author JOSETTE GALEANA Organization [facility] Address [address] [place] [address] Care Team Providers Care Grain Shipper Name Role Phone JOSETTE GALEANA Unavailable PROBLEMS Type Condition ICD9-CM Code ROU21-KV Code Onset Dates Condition Status SNOMED Code Problem Constipation, unspecified constipation type K59.00 Active 20098426 Problem Chronic daily headache R51 Active 261038539 Problem Episodic cluster headache, not intractable G44.019 Active 560047812 Problem Family history of diabetes mellitus (DM) Z83.3 Active 903278915 ALLERGIES No Information ENCOUNTERS Encounter Location Date Diagnosis [place] [address] [address] Dec, [facility] [address] [place] [address] Dec, Encounter for Depo-Provera contraception Z30.42 [place] [address] [address] Sep, Encounter for Depo-Provera contraception Z30.42 [place] [address] [place] [id number] [place] [address]- [address] 05 Sep, 2017 Well woman exam Z01.419 and Cervical cancer screening Z12.4 [place] [address] [address] Jul, Sports physical Z02.5 and Family history of diabetes mellitus (DM) Z83.3 [place] [address] [address]- [address] Jun, Encounter for Depo-Provera contraception Z30.42 [facility] [address] [address] Jun, Other viral agents as the cause of diseases classified elsewhere B97.89 and Acute upper respiratory infection, unspecified J06.9 [place] [address] [place] [id number] [place] [address]- 7781 Apr, Abdominal pain R10.9 and LLQ abdominal pain R10.32 [facility]ARE [address] [place] [address] Apr, Abdominal pain R10.9 and Constipation, unspecified constipation type K59.00 [place] [address] [place] [id number] [place] [address] 01760- 2706 Mar, Encounter for Depo-Provera contraception Z30.42 [facility] [place] [address] [place] [id number] [place] [address] Jan, Allergic contact dermatitis, unspecified trigger L23.[address] [address]- [address] Jan, Encounter for Depo-Provera contraception Z30.42 [facility] [place] [id number] [place] [address]22 -[address]140 Dec, Acute middle ear effusion, bilateral H65.193 [place] [id number] [place] [address] 17200- 6866 November, Alopecia L65.9 and Bilateral carpal tunnel syndrome G56.03 [place] [address] [address]- 6658 Oct, Encounter for Depo-Provera contraception Z30.42 [place] [address] [place] [id number] [place] [address] 04388- 7523 17 Aug, 2016 Acute bilateral low back pain without sciatica M54.5 [facility] [address] [place] [id number] [place] [address] 73564 -6971 14 Aug, 2016 Sore throat J02.9 ; Other viral agents as the cause of diseases classified elsewhere B97.89 and Acute upper respiratory infection, unspecified J06.9 [facility] [address] [place] [id number] Jul, Dental examination Z01.20 [place] [address] [place] [id number] [place] [address] 28635- 0651 10 Jul, 2016 Encounter for Depo-Provera contraception Z30.42 [place] [address] [address]- 5805 05 Jun, 2016 Routine adult health maintenance Z00.00 [place] [address] [place] [id number] [place] [address] 41442- 1844 26 Apr, 2016 NADIRA (secretory otitis media), unspecified laterality H65.90 ; Dizziness R42 and History of UTI Z87.440 [place] [address] [address]- 5327 10 Apr, 2016 control counseling Z30.9 and Encounter for Depo- Provera contraception Z30.42 [place] [address] [place] [id number] [place] [address] 98103- 7616 19 Mar, [address] [address]- 6197 16 Mar, 2016 Chronic daily headache R51 and Family history of diabetes mellitus (DM) Z83.3 [place] [address] [place] [id number] [place] [address] 43599- 4306 14 Mar, 2016 Chronic daily headache R51 ; Episodic cluster headache, not intractable G44.019 ; Family history of diabetes mellitus (DM) Z83.3 and Environmental allergies Z91.09 [place] [address] [place] [id number] [place] [address] 94[address]- 3496 24 Feb, 2016 Encounter to establish care Z76.89 and Migraine with aura and without status migrainosus, not intractable G43.109 [place] [address] [place] [id number] [place] [address] 18745- 6693 14 Oct, 2014 [place] [address] [address]- [address] Oct, [facility] [address] [id number] [place] [address]- 7795 Sep, [facility] [place] [facility] [address] [id number] [place] [address]- 0791 Sep, [facility] [place] [facility] [address] [id number] [place] [address]- 3962 Apr, [facility] [place] [facility] [address] [id number] [place] [address]- 5024 Apr, [facility] [place] [facility] [address] [id number] [place] [address]- 3065 Jan, [facility] [place] [facility] [address] [id number] [place] [address]- 2620 Jan, [facility] [place] [facility] [address] [id number] [place] [address]- 6532 Jul, [facility] [place] [facility] [address] [id number] [place] [address]- 3312 Jul, [facility] [place] [facility] [address] [id number] [place] [address]- 5978 Jul, [facility] [place] [facility] [address] [id number] [place] [address]- 0384 Jul, [facility] [place] [facility] [address] [id number] [address]- 7511 May, [facility] [place] [facility] [address] [id number] [place] [address]- 2077 May, [facility] [place] [facility] [address] [id number] [place] [address]- 7715 Mar, [facility] [place] [facility] [address] [id number] [place] [address]- 4280 November, [facility] [place] [facility] [address] [id number] [place] [address]- 9429 November, [facility] [place] [facility] [address] [id number] [place] [address]- 2546 November, [facility] [address] [id number] [place] [address]- 6416 Oct, [facility] [address] [id number] [place] [address]- 2546 Sep, [facility] [address] [id number] [place] [address] 2546 Sep, [facility] [address] [id number] [place] [address] 2543 Apr, [facility] [address] [id number] [place] [address]- 9806 Apr, [facility] [address] [id number] [place] [address]- 0226 Jul, [facility] [address] [id number] [place] [address]- 1389 Jun, [facility] [address] [id number] [place] [address]- 7503 15 Jun, 2010 [facility] [address] [id number] [place] [address]- 9611 15 Jun, 2010 [facility] [address] [id number] [place] [address]- 0064 May, [facility] [address] [id number] [place] [address]- 2546 May, [facility] [address] [id number] [place] [address]- 2347 Feb, [facility] [place] [facility] [address] [id number] [place] [address]- 3706 November, [facility] [address] [id number] [place] [address]- 7946 15 Jun, 2009 [facility] [place] [facility] [address] [id number] [place] [address]- 8041 Jun, [facility] [address] [id number] [address]- 9310 Jun, [facility] [address], [place] [address]- 3732 May, [facility] [address], [place] [address]- 9905 May, [facility] [address], [place] [address]- 4949 May, [facility] [address], [place] [address]- 6511 Jul, [facility] [address], [place] [address]- [address] November, [facility] [address], [place] [address]- 7235 14 Oct, 2004 [facility] [address], [place] [address]- 3849 16 Apr, 2004 IMMUNIZATIONS No Known Immunizations SOCIAL HISTORY Never Assessed REASON FOR VISIT Depo Provera Order PLAN OF CARE VITAL SIGNS MEDICATIONS Medication Instructions Dosage Frequency Start Date End Date Duration Status Depo-Provera 150 MG/ML Intramuscular every 3 months 1 ml 12 months Active RESULTS No Results PROCEDURES No Known procedures INSTRUCTIONS MEDICATIONS ADMINISTERED No Known Medications MEDICAL (GENERAL) HISTORY Type Description Date Medical History migraine headaches Surgical History section x 2 2014 Surgical History tonsillectomy and adenoidectomy Surgical History appendectomy
--- OUTSIDE RECORDS SUMMARY | 2018-07-24 20:53 | XMS REPORT ---
Author Author JOSETTE GALEANA Organization [facility] Address [address] [place] [address] Care Team Providers Care Freelance Displayer Name Role Phone JOSETTE GALEANA Unavailable PROBLEMS Type Condition ICD9-CM Code NVX93-RB Code Onset Dates Condition Status SNOMED Code Assessment Encounter to establish care Z76.89 Feb, Active 734756476 Assessment Migraine with aura and without status migrainosus, not intractable G43.109 Feb, Active 7853329 ALLERGIES Substance Reaction Event Type Date Status Imitrex 100 Mg Tablet Myalgias Non Drug Allergy Feb, Active SOCIAL HISTORY No smoking Hx information available PLAN OF CARE VITAL SIGNS Height 64 in 2016-03-10 Weight 222.8 lbs 2016-03-10 Heart Rate 96 bpm 2016-03-10 Respiratory Rate 18 2016-03-10 BMI 38.24 kg/m2 2016-03-10 Blood pressure systolic 118 mmHg 2016-03-10 Blood pressure diastolic 66 mmHg 2016-03-10 MEDICATIONS Medication Instructions Dosage Frequency Start Date End Date Duration Status Izhuogvyot-YFJW-Rbymnrhc 50-325-40 MG Orally every 4 hrs 1 capsule as needed 4h Feb, Active Depo-Provera 150 MG/ML 1 ml Active Topamax 50 mg Orally Twice a day 1 tablet 12h Feb, Active RESULTS No Results PROCEDURES Procedure Date Ordered Related Diagnosis Body Site Office Visit, Est Pt., Level 4 Mar 10, 2016 IMMUNIZATIONS No Known Immunizations
--- OUTSIDE RECORDS SUMMARY | 2018-07-24 20:53 | XMS REPORT ---
Author ANSHU Encarnacion Organization [employer] Address Unknown Phone Unavailable Care Team Providers Care Humanities Department Chair Name Role Phone ANSHU ARIZMENDI CP Unavailable Allergies, Adverse Reactions, Alerts Substance Reaction Event Type Imitrex 100 Mg Tablet Myalgias Non Drug Allergy Problems Problem Type Condition Code Onset Dates Condition Status Problem Episodic cluster headache, not intractable G44.019 Active Problem Family history of diabetes mellitus (DM) Z83.3 Active Problem Chronic daily headache R51 Active Assessment History of UTI Z87.440 Active Assessment NADIRA (secretory otitis media), unspecified laterality H65.90 Active Assessment Dizziness R42 Active Medications Medication Code System Code Instructions Start Date End Date Status Dosage Yaowvgcawn-CETL-Joytxruo [facility] [address]-04 50-325-40 MG Orally every 4 hrs Mar 10, 2016 1 capsule as needed PredniSONE [facility] [address]-94 10 mg Orally Once a day May 12, 2016 May 22, 2016 one tablet tid x d, bid x 3, d x 3 Meclizine HCl [facility] [address]-90 25 MG Orally Once a day May 12, 2016 1 tablet as needed Topamax [facility] [address]-41 50 mg Orally Twice a day Mar 10, 2016 1 tablet Depo-Provera [facility] [address]-87 150 MG/ML Intramuscular 1 ml Procedures Procedure Coding System Code Date Office Visit, Est Pt., Level 3 CPT-4 13552 May 12, 2016 URINALYSIS, AUTO, W/O SCOPE CPT-4 16856 May 12, 2016 Vital Signs Date/Time: May 12, 2016 Cardiac Monitoring Heart Rate 80 bpm Weight 214.6 lbs Height 64 in BMI 36.83 Index Blood Pressure Diastolic 70 mmHg Blood Pressure Systolic 122 mmHg Results Name Result Date Reference Range Unit Abnormality Flag UA LONG DIP (IN HOUSE) ----ARELI negative 20160512 ----NIT negative 20160512 ----Exp date 20160512 ----Lot # [id number] ----SG 1.025 20160512 ----KET negative 20160512 ----ABRAM negative 20160512 ----GLU negative 20160512 ----Odor none 20160512 ----pH 5.5 20160512 ----BLO negative 20160512 ----URO .02 20160512 ----Protein negative 20160512 ----Lot # [id number] ----Exp date 20160512 ----Clarity clear 20160512 ----Color yellow [id number] Summary Purpose [employer] Submission
--- OUTSIDE RECORDS SUMMARY | 2018-07-24 20:53 | XMS REPORT ---
Author Author GABBIE COLÓN [facility] Address [address] [place] [address] Care Team Providers Care Industrial Training Specialist Name Role Phone KATARZYNA GABBIE Unavailable PROBLEMS Type Condition ICD9-CM Code QFO96-TA Code Onset Dates Condition Status SNOMED Code Problem Constipation, unspecified constipation type K59.00 Active 68450105 Problem Chronic daily headache R51 Active 835485793 Problem Episodic cluster headache, not intractable G44.019 Active 070833880 Problem Family history of diabetes mellitus (DM) Z83.3 Active 603135133 ALLERGIES Substance Reaction Event Type Date Status Imitrex 100 Mg Tablet Myalgias Non Drug Allergy Jan, Active ENCOUNTERS Encounter Location Date Diagnosis [place] [id number] [place] [address] Sep, Encounter for Depo-Provera contraception Z30.42 [place] [id number] [place] [address] 05 Sep, 2017 Well woman exam Z01.419 and Cervical cancer screening Z12.4 [place] [id number] [place] [address] Jul, Sports physical Z02.5 and Family history of diabetes mellitus (DM) Z83.3 [place] [id number] [place] [address] Jun, Encounter for Depo-Provera contraception Z30.42 [facility] [id number] [place] [address] Jun, Other viral agents as the cause of diseases classified elsewhere B97.89 and Acute upper respiratory infection, unspecified J06.9 [place] [id number] [place] [address] Apr, Abdominal pain R10.9 and LLQ abdominal pain R10.32 [facility] [address] [place] [address] Apr, Abdominal pain R10.9 and Constipation, unspecified constipation type K59.00 [place] [address] [address] Mar, Encounter for Depo-Provera contraception Z30.42 [facility] [address] [place] [address] Jan, Allergic contact dermatitis, unspecified trigger L23.[address] [address] Jan, Encounter for Depo-Provera contraception Z30.42 [facility] [address] [address] Dec, Acute middle ear effusion, bilateral H65.[address] [address] November, Alopecia L65.9 and Bilateral carpal tunnel syndrome G56.[address] [address] Oct, Encounter for Depo-Provera contraception Z30.42 [place] [address] [address] 17 Aug, 2016 Acute bilateral low back pain without sciatica M54.5 [facility] [place] [id number] [place] [address] 14 Aug, 2016 Sore throat J02.9 ; Other viral agents as the cause of diseases classified elsewhere B97.89 and Acute upper respiratory infection, unspecified J06.9 [facility] [id number] [place] [id number] Jul, Dental examination Z01.20 [place] [address] [place] [address] 10 Jul, 2016 Encounter for Depo-Provera contraception Z30.42 [place] [address] [address] 05 Jun, 2016 Routine adult health maintenance Z00.00 [place] [address] [address] 26 Apr, 2016 NADIRA (secretory otitis media), unspecified laterality H65.90 ; Dizziness R42 and History of UTI Z87.440 [place] [address] [address] 10 Apr, 2016 control counseling Z30.9 and Encounter for Depo- Provera contraception Z30.42 [place] [address] [address] 19 Mar, 2016 [place] [address] [address] 16 Mar, 2016 Chronic daily headache R51 and Family history of diabetes mellitus (DM) Z83.3 [place] [address] [address] 14 Mar, 2016 Chronic daily headache R51 ; Episodic cluster headache, not intractable G44.019 ; Family history of diabetes mellitus (DM) Z83.3 and Environmental allergies Z91.09 [place] [address] [address] Feb, Encounter to establish care Z76.89 and Migraine with aura and without status migrainosus, not intractable G43.109 [place] [address] [address] Oct, [place] [address] [address] Oct, [place] [address] [address] Sep, [place] [address] [place] [address] Sep, [facility] [address] [id number] [place] [address] Apr, [facility] [place] [facility] [address] [id number] [place] [address] Apr, [facility] [address] [id number] [place] [address] Jan, [facility] [place] [facility] [address] [id number] [place] [address] Jan, [facility] [address] [id number] [place] Jul, [facility] [place] [facility] [address] [id number] [place] [address] Jul, [facility] [address] [id number] [place] [address] 47[address] Jul, [facility] [address] [id number] [place] [address] 279[address] Jul, [facility] [address] [id number] [place] [address] 139[address] May, [facility] [address] [id number] [place] [address] May, [facility] [place] [facility] [address] [id number] [place] [address] Mar, [facility] [place] [facility] [address] [id number] [place] [address] November, [facility] [place] [facility] [address] [id number] [place] [address] 7947 November, [facility] [place] [facility] [address] [id number] [place] [address] November, [facility] [place] [facility] [address] [id number] [place] [address] 4646 Oct, [facility] [place] [facility] [address] [id number] [place] [address]- 0[address] Sep, [facility] [address] [id number] [place] [address] 9[address] 09 Sep, 2012 [facility] [place] [facility] [address] [id number] [place] [address]- [address] 13 Apr, 2012 [facility] [place] [facility] [address] [id number] [place] [address]- [address] 13 Apr, 2012 [facility] [place] [facility] [address] [id number] [place] [address] 479[address] Jul, [facility] [place] [facility] [address] [id number] [place] [address]- 114[address] 28 Jun, 2010 [facility] [address] [id number] [place] [address]- [address] 15 Jun, 2010 [facility] [address] [id number] [place] [address]- 5[address] 15 Jun, 2010 [facility] [address] [id number] [place] [address] May, [facility] [address] [id number] [place] [address] 3922 May, [facility] [address] [id number] [place] [address] Feb, [facility] [address] [id number] [place] [address] November, [facility] [place] [facility] [address] [id number] [place] 15 Jun, 2009 [facility] [place] [facility] [address] [id number] [place] [address]- 1647 15 Jun, 2009 [facility] [place] [facility] [address] [id number] [place] [address]- [address] 04 Jun, 2009 [facility] [place] [facility] [address] [id number] [place] [address] May, [facility] [address] [facility] [id number] [place] [address] May, [facility] [id number] [address] May, [facility] [address] [id number] [address] Jul, [facility] [address] [place] [address] November, [facility] [address] [facility] [id number] [address] Oct, [facility] [id number] [address] Apr, IMMUNIZATIONS No Known Immunizations SOCIAL HISTORY Never Assessed REASON FOR VISIT rash started about a week ago after a tick bite JStrasserRN PLAN OF CARE Activity Details Follow Up prn Reason: VITAL SIGNS Height 64 in 2017-01-20 Weight 220.4 lbs 2017-01-20 Temperature 97.7 degrees Fahrenheit 2017-01-20 Heart Rate 92 bpm 2017-01-20 Respiratory Rate 20 2017-01-20 BMI 37.83 kg/m2 2017-01-20 Blood pressure systolic 110 mmHg 2017-01-20 Blood pressure diastolic 78 mmHg 2017-01-20 MEDICATIONS Medication Instructions Dosage Frequency Start Date End Date Duration Status Depo-Provera 150 MG/ML 1 ml Active RESULTS No Results PROCEDURES No Known procedures INSTRUCTIONS MEDICATIONS ADMINISTERED No Known Medications MEDICAL (GENERAL) HISTORY Type Description Date Medical History migraine headaches Surgical History section x 2 2014 Surgical History tonsillectomy and adenoidectomy Surgical History appendectomy
--- OUTSIDE RECORDS SUMMARY | 2018-07-24 20:53 | XMS REPORT ---
Author Author JOSETTE GALEANA Organization [facility] Address [address] [place] [address] Care Team Providers Care Classroom Aide Name Role Phone JOSETTE GALEANA Unavailable PROBLEMS Type Condition ICD9-CM Code HSV87-LW Code Onset Dates Condition Status SNOMED Code Problem Constipation, unspecified constipation type K59.00 Active 71944772 Problem Chronic daily headache R51 Active 038946628 Problem Episodic cluster headache, not intractable G44.019 Active 898511117 Problem Family history of diabetes mellitus (DM) Z83.3 Active 856790975 ALLERGIES Substance Reaction Event Type Date Status Imitrex 100 Mg Tablet Myalgias Non Drug Allergy November, Active SOCIAL HISTORY Never Assessed PLAN OF CARE Activity Details Follow Up prn Reason: VITAL SIGNS Height 64 in 2016-12-01 Weight 216.7 lbs 2016-12-01 Temperature 98.6 degrees Fahrenheit 2016-12-01 Heart Rate 84 bpm 2016-12-01 Respiratory Rate 18 2016-12-01 BMI 37.19 kg/m2 2016-12-01 Blood pressure systolic 125 mmHg 2016-12-01 Blood pressure diastolic 77 mmHg 2016-12-01 MEDICATIONS Medication Instructions Dosage Frequency Start Date End Date Duration Status Depo-Provera 150 MG/ML 1 ml Active RESULTS No Results PROCEDURES No Known procedures IMMUNIZATIONS No Known Immunizations MEDICAL (GENERAL) HISTORY Type Description Date Medical History migraine headaches Surgical History section x 2 2014 Surgical History tonsillectomy and adenoidectomy Surgical History appendectomy
--- OUTSIDE RECORDS SUMMARY | 2018-07-24 20:53 | XMS REPORT ---
Author Author ANSHU ARIZMENDI Organization [facility] Address [address] [place] [address] Care Team Providers Care Souvenir And Novelty Maker Name Role Phone ANSHU ARIZMENDI Unavailable PROBLEMS Type Condition ICD9-CM Code [id number] Code Onset Dates Condition Status SNOMED Code Problem Chronic daily headache R51 Active 252793653 Problem Episodic cluster headache, not intractable G44.019 Active 045569566 Problem Family history of diabetes mellitus (DM) Z83.3 Active 344142499 Assessment Environmental allergies Z91.09 Mar, Active 457744536 ALLERGIES Substance Reaction Event Type Date Status Imitrex 100 Mg Tablet Myalgias Non Drug Allergy Mar, Active SOCIAL HISTORY No smoking Hx information available PLAN OF CARE VITAL SIGNS Height 64 in 2016-03-31 Weight 217.8 lbs 2016-03-31 Heart Rate 97 bpm 2016-03-31 Respiratory Rate 18 2016-03-31 BMI 37.38 kg/m2 2016-03-31 Blood pressure systolic 126 mmHg 2016-03-31 Blood pressure diastolic 83 mmHg 2016-03-31 MEDICATIONS Medication Instructions Dosage Frequency Start Date End Date Duration Status Depo-Provera 150 MG/ML 1 ml Active Amitriptyline HCl 25 MG Orally Once a day 1 tablet 24h Mar, 30 day(s) Active Bcbfatvzyw-ELVW-Dvkqfffq 50-325-40 MG Orally every 4 hrs 1 capsule as needed 4h Feb, Active Topamax 50 mg Orally Twice a day 1 tablet 12h Feb, Active RESULTS Name Result Date Reference Range A1C (IN HOUSE) 2016-03-31 A1C IN HOUSE 5.2 4.3 - 5.6 % Previous A1c Lot [id number] Exp date 01/2018 PROCEDURES Procedure Date Ordered Related Diagnosis Body Site GLYCATED HEMOGLOBIN TEST Mar 31, 2016 DEXAMETHASONE 4MG/ML (PER 1 MG) Mar 31, 2016 DEPO MEDROL 40 MG/ML Mar 31, 2016 THER/PROPH/DIAG INJ, SC/IM Mar 31, 2016 IMMUNIZATIONS Vaccine Route Administration Date Status DEPO MEDROL 40 MG/ML IM Intramuscular Mar 31, 2016 Administered DEXAMETHASONE 4MG/ML (PER 1 MG) IM Intramuscular Mar 31, 2016 Administered
--- OUTSIDE RECORDS SUMMARY | 2018-07-24 20:53 | XMS REPORT ---
Author Author MILAGRO MENDOZA Organization [facility] Address [address] [place] [address] Care Team Providers Care Metal Machinist Name Role Phone MILAGRO MENDOZA Unavailable PROBLEMS Type Condition ICD9-CM Code EKB67-FA Code Onset Dates Condition Status SNOMED Code Problem Episodic cluster headache, not intractable G44.019 Active 205561194 Problem Family history of diabetes mellitus (DM) Z83.3 Active 382592453 Problem Chronic daily headache R51 Active 954656829 ALLERGIES Substance Reaction Event Type Date Status Imitrex 100 Mg Tablet Myalgias Non Drug Allergy Aug, Active SOCIAL HISTORY Never Assessed PLAN OF CARE Activity Details Follow Up prn Reason: VITAL SIGNS Height 64 in 2016-08-31 Weight 217.8 lbs 2016-08-31 Temperature 97.4 degrees Fahrenheit 2016-08-31 Heart Rate 92 bpm 2016-08-31 Respiratory Rate 18 2016-08-31 BMI 37.38 kg/m2 2016-08-31 Blood pressure systolic 124 mmHg 2016-08-31 Blood pressure diastolic 74 mmHg 2016-08-31 MEDICATIONS Medication Instructions Dosage Frequency Start Date End Date Duration Status Depo-Provera 150 MG/ML 1 ml Active RESULTS Name Result Date Reference Range STREP A (IN HOUSE) 2016-08-31 STREP A negative Control + Lot # [id number] Exp date apr 04 PROCEDURES Procedure Date Ordered Result Body Site STREP A ASSAY W/OPTIC Aug 31, 2016 IMMUNIZATIONS No Known Immunizations MEDICAL (GENERAL) HISTORY Type Description Date Medical History migraine headaches Surgical History section x 2 2014 Surgical History tonsillectomy and adenoidectomy Surgical History appendectomy
--- OUTSIDE RECORDS SUMMARY | 2018-07-24 20:53 | XMS REPORT ---
Author Author CHANELLE ARZOLA Organization [facility] Address [address] [place] [address] Care Team Providers Care Sql Application Developer Name Role Phone CHANELLE ARZOLA Unavailable PROBLEMS Type Condition ICD9-CM Code SSW94-US Code Onset Dates Condition Status SNOMED Code Problem Constipation, unspecified constipation type K59.00 Active 23749913 Problem Chronic daily headache R51 Active 133247061 Problem Episodic cluster headache, not intractable G44.019 Active 487091723 Problem Family history of diabetes mellitus (DM) Z83.3 Active 552504537 ALLERGIES Substance Reaction Event Type Date Status Imitrex 100 Mg Tablet Myalgias Non Drug Allergy Jun, Active ENCOUNTERS Encounter Location Date Diagnosis [place] [address] [id number] [place] [address]06- 3967 Sep, Encounter for Depo-Provera contraception Z30.42 [place] [address] [address]- [address] Sep, Well woman exam Z01.419 and Cervical cancer screening Z12.4 [place] [id number] [place] [address] 26062- 0203 Jul, Sports physical Z02.5 and Family history of diabetes mellitus (DM) Z83.3 [facility] [id number] [place] [address] 36678- 6565 Jun, Encounter for Depo-Provera contraception Z30.42 [facility] [id number] [place] [address] 21284 -[address]666 Jun, Other viral agents as the cause of diseases classified elsewhere B97.89 and Acute upper respiratory infection, unspecified J06.9 [place] [address] 7[address]- 5553 Apr, Abdominal pain R10.9 and LLQ abdominal pain R10.32 [facility] [address] [place] [address]40 Apr, Abdominal pain R10.9 and Constipation, unspecified constipation type K59.00 [place] [address] 40790- 4930 Mar, Encounter for Depo-Provera contraception Z30.42 [facility] [address] [address]97 Jan, Allergic contact dermatitis, unspecified trigger L23.9 [place] [address] 58791- 1481 Jan, Encounter for Depo-Provera contraception Z30.42 [facility] WALK IN [address] [address] Dec, Acute middle ear effusion, bilateral H65.193 [place] [address] 54261- 4645 November, Alopecia L65.9 and Bilateral carpal tunnel syndrome G56.03 [place] [address] 72764- 8383 Oct, Encounter for Depo-Provera contraception Z30.42 [place] [id number] [place] [address] 93271- 4669 17 Aug, 2016 Acute bilateral low back pain without sciatica M54.5 [facility] W[facility] IN [address] [address] -[address] 14 Aug, 2016 Sore throat J02.9 ; Other viral agents as the cause of diseases classified elsewhere B97.89 and Acute upper respiratory infection, unspecified J06.9 [facility] [id number] [place] [id number] Jul, Dental examination Z01.20 [place] [address] 72334- 4575 Jul, Encounter for Depo-Provera contraception Z30.42 [place] [address] 21949- 5769 05 Jun, 2016 Routine adult health maintenance Z00.00 [place] [address] 00712- 4866 Apr, NADIRA (secretory otitis media), unspecified laterality H65.90 ; Dizziness R42 and History of UTI Z87.440 [place] [address] 45594- 9222 10 Apr, 2016 control counseling Z30.9 and Encounter for Depo- Provera contraception Z30.42 [place] [address] 40021- 0251 19 Mar, 2016 [place] [address] 19827- 6434 16 Mar, 2016 Chronic daily headache R51 and Family history of diabetes mellitus (DM) Z83.3 [place] [address] 86153- 2481 14 Mar, 2016 Chronic daily headache R51 ; Episodic cluster headache, not intractable G44.019 ; Family history of diabetes mellitus (DM) Z83.3 and Environmental allergies Z91.09 [place] [address] 70743- 0596 Feb, Encounter to establish care Z76.89 and Migraine with aura and without status migrainosus, not intractable G43.109 [place] [id number] [place] [address] 09420- 9496 Oct, [place] [address] 99191- 6058 Oct, [place] [address] 74595- 0718 Sep, [place] [address] 34418- 2546 Sep, [facility] [address] [id number] [place] [address] 63[address] Apr, [facility] [place] [facility] [address] [id number] [place] [address]- 9916 Apr, [facility] [place] [facility] [address] [id number] [place] [address]- 3643 Jan, [facility] [place] [facility] [address] [id number] [place] [address]- 5733 Jan, [facility] [place] [facility] [address] [id number] [place] [address]- 3734 Jul, [facility] [place] [facility] [address] [id number] [place] [address]- 6499 Jul, [facility] [place] [facility] [address] [id number] [place] [address]- 5368 Jul, [facility] [place] [facility] [address] [id number] [place] [address]- 8701 Jul, [facility] [place] [facility] [address] [id number] [place] [address]- 4800 May, [facility] [place] [facility] [address] [id number] [place] [address]- 8548 May, [facility] [place] [facility] [address] [id number] [place] [address]- 2865 Mar, [facility] [place] [facility] [address] [id number] [place] [address]- 9973 November, [facility] [place] [facility] [address] [id number] [place] [address]- 2288 November, [facility] [place] [facility] [address] [id number] [place] [address]- 3981 November, [facility] [place] [facility] [address] [id number] [place] [address]- 2101 Oct, [facility] [place] [facility] [address] [id number] [place] [address]- 3816 25 Sep, 2012 [facility] [address] [id number] [place] [address]- 5854 09 Sep, 2012 [facility] [address] [id number] [place] [address]- 1017 13 Apr, 2012 [facility] [address] [id number] [place] [address]- 5186 13 Apr, 2012 [facility] [address] [id number] [place] [address]- 3962 11 Jul, 2010 [facility] [address] [id number] [place] [address]- 1691 28 Jun, 2010 [facility] [address] [id number] [place] [address]- 1876 15 Jun, 2010 [facility] [address] [id number] [place] [address]- 2358 15 Jun, 2010 [facility] [address] [id number] [place] [address]- 4320 May, [facility] [address] [id number] [place] [address]- 8298 May, [facility] [address] [facility] [id number] [place] [address]- 0652 Feb, [facility] [address] [id number] [place] [address]- 8415 November, [facility] [address] [id number] [place] [address]- 4319 15 Jun, 2009 [facility] [address] [id number] [place] [address]- 2248 15 Jun, 2009 [facility] [address] [id number] [place] [address]- 2546 04 Jun, 2009 [facility] [address] [id number] [place] [address]- 6686 May, [facility] [address] [facility] [id number] [place] [address]- 8466 May, [facility] [address] [facility] [id number] [place] [address]- 5606 May, [facility] [address] [facility] [id number] [place] [address]- 5089 Jul, [facility] [id number] [address]- 9386 November, [facility] [address] [facility] [id number] [place] [address]- 0425 Oct, [facility] [address] [id number] [address]- 3256 Apr, IMMUNIZATIONS No Known Immunizations SOCIAL HISTORY Never Assessed REASON FOR VISIT Ear congestion and sinus pressure. MIGUEL Bender. PLAN OF CARE VITAL SIGNS Height 64 in 2017-07-06 Weight 216.4 lbs 2017-07-06 Temperature 98.6 degrees Fahrenheit 2017-07-06 Heart Rate 92 bpm 2017-07-06 Respiratory Rate 20 2017-07-06 BMI 37.14 kg/m2 2017-07-06 Blood pressure systolic 130 mmHg 2017-07-06 Blood pressure diastolic 82 mmHg 2017-07-06 MEDICATIONS Medication Instructions Dosage Frequency Start Date End Date Duration Status Depo-Provera 150 MG/ML 1 ml Active Barnard 5-325 MG Orally every 6 hrs 1 tablet as needed 6h Aug, Not-Taking PredniSONE 20 mg Orally Once a day 2 tablets 24h Jun, Jun, 05 days Active RESULTS No Results PROCEDURES No Known procedures INSTRUCTIONS MEDICATIONS ADMINISTERED No Known Medications MEDICAL (GENERAL) HISTORY Type Description Date Medical History migraine headaches Surgical History section x 2 2014 Surgical History tonsillectomy and adenoidectomy Surgical History appendectomy
--- OUTSIDE RECORDS SUMMARY | 2018-07-24 20:53 | XMS REPORT ---
Author MATT Cantor Organization [employer] Address Unknown Phone Unavailable Care Team Providers Care Aerospace Physiological Technician Name Role Phone MATT BAILON CP Unavailable Allergies, Adverse Reactions, Alerts Substance Reaction Event Type Imitrex 100 Mg Tablet Myalgias Non Drug Allergy Problems Problem Type Condition Code Onset Dates Condition Status Problem Episodic cluster headache, not intractable G44.019 Active Problem Family history of diabetes mellitus (DM) Z83.3 Active Problem Chronic daily headache R51 Active Assessment control counseling Z30.9 Active Assessment Encounter for Depo-Provera contraception Z30.42 Active Medications Medication Code System Code Instructions Start Date End Date Status Dosage Topamax [facility] [address]-14 50 mg Orally Twice a day Mar 10, 2016 1 tablet Depo-Provera [facility] [address]-52 150 MG/ML Intramuscular 1 ml Depo-Provera [facility] [address]-76 150 MG/ML Intramuscular Apr 26, 2016 May 26, 2016 1 ml Rfelguraaa-ZUAJ-Auebapgn [facility] [address]-54 50-325-40 MG Orally every 4 hrs Mar 10, 2016 1 capsule as needed Procedures Procedure Coding System Code Date DEPO PROVERA (150 MG/ML) CPT-4 J1050 Apr 26, 2016 THER/PROPH/DIAG INJ, SC/IM CPT-4 96653 Apr 26, 2016 URINE TEST CPT-4 40124 Apr 26, 2016 Office Visit, Est Pt., Level 3 CPT-4 34641 Apr 26, 2016 Vital Signs Date/Time: Apr 26, 2016 Cardiac Monitoring Heart Rate 98 bpm Weight 217.0 lbs Height 64 in BMI 37.24 Index Blood Pressure Diastolic 77 mmHg Blood Pressure Systolic 125 mmHg Results No Known Results Summary Purpose [employer] Submission
--- OUTSIDE RECORDS SUMMARY | 2018-07-24 20:53 | XMS REPORT ---
Author Author ANSHU ARIZMENDI Organization [facility] Address [address] [place] [address] Care Team Providers Care Window Glazier Name Role Phone ANSHU ARIZMENDI Unavailable PROBLEMS Type Condition ICD9-CM Code OTX06-WC Code Onset Dates Condition Status SNOMED Code Problem Chronic daily headache R51 Active 344414315 Problem Episodic cluster headache, not intractable G44.019 Active 476892018 Problem Family history of diabetes mellitus (DM) Z83.3 Active 892133486 ALLERGIES No Known Allergies SOCIAL HISTORY No smoking Hx information available PLAN OF CARE VITAL SIGNS MEDICATIONS No Known Medications RESULTS No Results PROCEDURES No Known procedures IMMUNIZATIONS No Known Immunizations
--- NOTE | 2018-07-24 20:54 | ED Integumentary General ---
General Chief Complaint: Bite-Animal/Human/Insect Stated Complaint: POSSIBLE SPIDER BITE RT LEG Nursing Triage Note: PT AMB TO FT1 W/O DIFFICULTY. A&OX4. C/O POSSIBLE SPIDER BITE TO MEDIAL PORTION OF INNER RT THIGH. PT REPORTS APPROX 199907/23/17 SHE FELT A BITE. REPORTS TO HAVE BEEN SEEN @ [facility] THIS AM @ APROX 1000 WHERE SHE WAS PRESCRIBED BACTRIM ANTIBIOTIC AND BENADRYL. PT REPORTS TO HAVE TAKEN 150MG BENADRYL THROUGHOUT THIS DAY. REPORTS PAIN AND ITCHING TO AREA. AREA NOTED TO BE HOT TO TOUCH, REDDENED, AND SWOLLEN. History of Present Illness Date Seen by Provider: Jul 24, 2018 Time Seen by Provider: 20:40 Initial Comments 28-year-old female presents for possible insect bite to her right inner thigh. She was seen at the walk-in clinic earlier today and started on Bactrim. She has had one dose so far. She is also taking Benadryl for pruritus. She presents due to increased redness and requesting a steroid injection. Timing/Duration: this morning Location: extremities (right thigh) Possible Cause: insect bite Associated Symptoms: denies symptoms Allergies and Home Medications Allergies Coded Allergies: sumatriptan (Unverified Adverse Reaction, Intermediate, 01/01/13) sumatriptan succinate (Unverified Adverse Reaction, Intermediate, 01/01/13) Home Medications Butalb/Acetaminophen/Caffeine 1 Each Capsule, 1 EACH PO UD PRN for MIGRAINE, ( Reported) Ferrous Sulfate 325 Mg Tablet, 325 MG PO DAILY Prescribed by: ANN LONGORIA on 06/10/15 0850 Hydrocodone Bit/Acetaminophen 1 Each Tablet, 1-2 TAB PO Q6H PRN for PAIN Prescribed by: ANN LONGORIA on 06/10/15 0850 Ibuprofen 600 Mg Tablet, 600 MG PO Q6H Prescribed by: ANN LONGORIA on 06/10/15 0850 Vit/Iron Fumarate/FA 1 Each Tablet, 1 EACH PO DAILY, (Reported) Patient Home Medication List Home Medication List Reviewed: Yes Review of Systems Review of Systems Constitutional: no symptoms reported, see HPI Skin: see HPI, change in color, pruritus Past Colxaol-Ompvol-Ttkjqf Hx Past Med/Social Hx: Reviewed Nursing Past Med/Soc Hx Patient Social History Alcohol Use: Denies Use Recreational Drug Use: No Smoking Status: Never a Smoker 2nd Hand Smoke Exposure: No Recent Foreign Travel: No Contact w/Someone Who Travel: No Recent Infectious Disease Expo: No Recent Hopitalizations: Yes Physical Abuse: No Sexual Abuse: No Immunizations Up To Date Tetanus Booster (TDap): Less than 5yrs Date of Influenza Vaccine: Apr 17, 2011 Past Medical History Surgeries: Yes (appendectomy, tonsilectomy/andenoids) Appendectomy, Section, Tonsillectomy Respiratory: No Cardiac: No Neurological: Yes Reproductive Disorders: No UTI-Chronic Gastrointestinal: No Musculoskeletal: No Endocrine: No Cancer: No Psychosocial: No Integumentary: No Blood Disorders: No Family Medical History Alzheimer's disease grandparents Cardiovascular disease grandparents Cataracts grandparents Colon cancer grandparents Diabetes mellitus grandparents Drug abuse 19 FATHER 19 MOTHER Hypertension 19 MOTHER Myocardial infarction grandparents Respiratory disorder grandparents No Pertinent Family Hx Physical Exam Vital Signs Vital Signs - First Documented 07/24/18 20:20 Temp 98.3 Pulse 102 Resp 18 B/P (MAP) 123/82 (96) Pulse Ox 100 O2 Delivery Room Air Capillary Refill : Less Than 3 Seconds General Appearance: WD/WN, no apparent distress Cardiovascular: normal peripheral pulses, regular rate, rhythm Respiratory: chest non-tender, lungs clear, normal breath sounds Skin: normal color, warm/dry Skin Problem Location: lower extremities (right mid to distal thigh, medial aspect.) Skin Problem Character: erythema, tenderness, warm, other (area has been previously marked from visit at clinic this morning. The erythema is 1-2 cm wider than the marking. No central area of induration or fluctuance to drain) Progress/Results/Core Measures Results/Orders Vital Signs/I&O 07/24/18 07/24/18 20:20 21:14 Temp 98.3 98.3 Pulse 102 98 Resp 18 18 B/P (MAP) 123/82 (96) 123/82 (96) Pulse Ox 100 100 O2 Delivery Room Air Room Air Blood Pressure Mean: 96 Progress Progress Note : Time: 20:40 Progress Note Patient seen and evaluated. Explained that her current treatment regimen is appropriate. No additional treatment is needed at this time. Educated patient that it will take a minimum of 48-72 hours before she'll notice significant improvement. Discharge instructions and return precautions reviewed with the patient. Explained that a steroid injection is not advisable at this time, and could potentially make her situation worse. Departure Impression Primary Impression: Insect bite Qualified Codes: S70.361A - Insect bite (nonvenomous), right thigh, initial encounter; W57.XXXA - Bitten or stung by nonvenomous insect and other nonvenomous arthropods, initial encounter Disposition: HOME, SELF-CARE Condition: Stable Departure-Patient Inst. Decision time for Depature: 20:50 Referrals: ASHWINI AN DO (PCP) Primary Care Physician Patient Instructions: Insect Bites and Stings (DC) Add. Discharge Instructions: Continue your current medication regimen as prescribed at the [facility]. You may alternate between Tylenol and ibuprofen every 4 hours. Take antibiotics as prescribed. Follow-up in the [facility] clinic if symptoms are not improving or worsen over the next 2-3 days. Return to emergency department for new, urgent health care needs for fever greater than 101 not relieved by Tylenol and ibuprofen.. All discharge instructions reviewed with patient and/or family. Voiced understanding. Copy Copies To 1: ASHWINI AN AMY ARNP Jul 24, 2018 20:54
--- OUTSIDE RECORDS SUMMARY | 2018-07-24 20:54 | XMS REPORT ---
Author Author JOSETTE GALEANA Organization [facility] Address [address] [place] [address] Care Team Providers Care Varnish Thinner Name Role Phone JOSETTE GALEANA Unavailable PROBLEMS Type Condition ICD9-CM Code JAL65-KW Code Onset Dates Condition Status SNOMED Code Problem Constipation, unspecified constipation type K59.00 Active 89096063 Problem Chronic daily headache R51 Active 350710558 Problem Episodic cluster headache, not intractable G44.019 Active 014692231 Problem Family history of diabetes mellitus (DM) Z83.3 Active 508604261 ALLERGIES Substance Reaction Event Type Date Status Imitrex 100 Mg Tablet Myalgias Non Drug Allergy Jan, Active ENCOUNTERS Encounter Location Date Diagnosis [place] [address] [id number] [place] [address] 98957- 4672 Sep, Encounter for Depo-Provera contraception Z30.42 [place] [id number] [place] [address] 53341- 3669 Sep, Well woman exam Z01.419 and Cervical cancer screening Z12.4 [place] [id number] [place] [address] 10958- 0831 Jul, Sports physical Z02.5 and Family history of diabetes mellitus (DM) Z83.3 [place] [id number] [place] [address] 54909- 2934 Jun, Encounter for Depo-Provera contraception Z30.42 [facility] [id number] [place] [address] 77633 -2154 Jun, Other viral agents as the cause of diseases classified elsewhere B97.89 and Acute upper respiratory infection, unspecified J06.9 [place] [id number] [place] [address] 08392- 0137 Apr, Abdominal pain R10.9 and LLQ abdominal pain R10.32 [facility] [id number] [place] [address] 93266 -7428 Apr, Abdominal pain R10.9 and Constipation, unspecified constipation type K59.00 [place] [id number] [place] [address] 05306- 4538 Mar, Encounter for Depo-Provera contraception Z30.42 [facility] [address] [address] -[address]32 Jan, Allergic contact dermatitis, unspecified trigger L23.9 [place] [address] 72531- 1546 Jan, Encounter for Depo-Provera contraception Z30.42 [facility] [place] [id number] [place] [address] 18582 -2599 Dec, Acute middle ear effusion, bilateral H65.193 [place] [address] 32910- 4785 November, Alopecia L65.9 and Bilateral carpal tunnel syndrome G56.03 [place] [id number] [place] [address] 06065- 4993 Oct, Encounter for Depo-Provera contraception Z30.42 [place] [id number] [place] [address] 61459- 4756 17 Aug, 2016 Acute bilateral low back pain without sciatica M54.5 [facility] [place] [id number] [place] [address] 92788 -9813 14 Aug, 2016 Sore throat J02.9 ; Other viral agents as the cause of diseases classified elsewhere B97.89 and Acute upper respiratory infection, unspecified J06.9 [facility] [address] [place] [address] [id number] Jul, Dental examination Z01.20 [place] [id number] [place] [address] 83554- 5953 10 Jul, 2016 Encounter for Depo-Provera contraception Z30.42 [place] [address] 65596- 9769 05 Jun, 2016 Routine adult health maintenance Z00.00 [place] [id number] [place] [address] 88553- 0891 26 Apr, 2016 NADIRA (secretory otitis media), unspecified laterality H65.90 ; Dizziness R42 and History of UTI Z87.440 [place] [address] 24491- 7789 10 Apr, 2016 control counseling Z30.9 and Encounter for Depo- Provera contraception Z30.42 [place] [id number] [place] [address] 79887- 8967 19 Mar, [address] 27105- 2718 16 Mar, 2016 Chronic daily headache R51 and Family history of diabetes mellitus (DM) Z83.3 [place] [id number] [place] [address] 22996- 2304 14 Mar, 2016 Chronic daily headache R51 ; Episodic cluster headache, not intractable G44.019 ; Family history of diabetes mellitus (DM) Z83.3 and Environmental allergies Z91.09 [place] [id number] [place] [address] 50225- 4735 Feb, Encounter to establish care Z76.89 and Migraine with aura and without status migrainosus, not intractable G43.109 [place] [id number] [place] [address] 66595- 3952 Oct, [address] 75926- 5701 Oct, [place] [address] 20686- 0313 Sep, [place] [address] [place] [address]- 5444 Sep, [facility] [address] [id number] [place] [address]- 5488 Apr, [facility] [place] [facility] [address] [id number] [place] 4[address] Apr, [facility] [address] [id number] [place] [address]- 0444 Jan, [facility] [place] [facility] [address] [id number] [place] [address]- 7606 Jan, [facility] [address] [id number] [place] Jul, [facility] [place] [facility] [address] [id number] [place] [address]- 5204 Jul, [facility] [address] [id number] [place] [address]- 7041 Jul, [facility] [address] [id number] [place] [address]- 5783 Jul, [facility] [place] [facility] [address] [id number] [place] [address]- 8457 May, [facility] [address] [id number] [place] [address]- 0263 May, [facility] [place] [facility] [address] [id number] [place] [address]- 9477 Mar, [facility] [place] [facility] [address] [id number] [place] [address]- 7881 November, [facility] [place] [facility] [address] [id number] [place] [address]- 3875 November, [facility] [place] [facility] [address] [id number] [place] [address] 2546 November, [facility] [place] [facility] [address] [id number] [place] [address]- 6586 Oct, [facility] [place] [facility] [address] [id number] [place] [address]- 7590 Sep, [facility] [address] [id number] [place] [address]- 3834 Sep, [facility] [address] [id number] [place] [address]- 9962 13 Apr, 2012 [facility] [address] [id number] [place] [address], [place] [address]- 0614 Apr, [facility] [address] [id number] [place] [address]- 7283 Jul, [facility] [address] [id number] [place] [address]- 8024 28 Jun, 2010 [facility] [address] [id number] [place] [address]- 3459 15 Jun, 2010 [facility] [address] [id number] [place] [address]- 9358 15 Jun, 2010 [facility] [address] [id number] [place] [address]- 7913 May, [facility] [address] [id number] [place] [address]- 8466 May, [facility] [address] [id number] [place] [address]- 0782 Feb, [facility] [address] [id number] [place] [address]- 9167 November, [facility] [address] [id number] [place] [address]- 3555 15 Jun, 2009 [facility] [place] [facility] [address] [id number] [place] [address]- 0975 15 Jun, 2009 [facility] [address] [id number] [place] [address]- 0377 04 Jun, 2009 [facility] [address] [id number] [address] 2546 May, [facility] [address] [facility] [id number] [address] 2546 May, [facility] [address] [id number] [address]- 2546 May, [facility] [address] [id number] [address]- 2546 Jul, [facility] [address] [id number] [address]- 2546 November, [facility] [address] [id number] [address]- 7406 14 Oct, 2004 [facility] [address] [id number] [address] 2546 16 Apr, 2004 IMMUNIZATIONS Vaccine Route Administration Date Status DEPO PROVERA (150 MG/ML) IM Intramuscular January 19, 2017 Administered SOCIAL HISTORY Never Assessed REASON FOR VISIT Depo Provera injection---GINI Clemons PLAN OF CARE Activity Details Follow Up 3 Months Reason: VITAL SIGNS MEDICATIONS Medication Instructions Dosage Frequency Start Date End Date Duration Status Depo-Provera 150 MG/ML 1 ml Active RESULTS Name Result Date Reference Range TEST, URINE (IN HOUSE) 2017-01-19 RESULTS Negative Lot # [id number] Control + Exp date 04/03/31 PROCEDURES Procedure Date Ordered Result Body Site URINE TEST January 19, 2017 DEPO PROVERA (150 MG/ML) January 19, 2017 THER/PROPH/DIAG INJ, SC/IM January 19, 2017 INSTRUCTIONS MEDICATIONS ADMINISTERED No Known Medications MEDICAL (GENERAL) HISTORY Type Description Date Medical History migraine headaches Surgical History section x 2 2011, 2014 Surgical History tonsillectomy and adenoidectomy Surgical History appendectomy
--- OUTSIDE RECORDS SUMMARY | 2018-07-24 20:54 | XMS REPORT ---
Author Author ASHWINI AN [facility] Address [address] [place] [address] Care Team Providers Care Area Field Worker Name Role Phone ASHWINI AN Unavailable PROBLEMS Type Condition ICD9-CM Code HRN86-MC Code Onset Dates Condition Status SNOMED Code Problem Episodic cluster headache, not intractable G44.019 Active 528298361 Problem Family history of diabetes mellitus (DM) Z83.3 Active 220395154 Problem Chronic daily headache R51 Active 908934726 ALLERGIES No Known Allergies SOCIAL HISTORY No smoking Hx information available PLAN OF CARE VITAL SIGNS MEDICATIONS No Known Medications RESULTS Name Result Date Reference Range TEST, URINE (IN HOUSE) 2016-07-27 RESULTS neg Lot # [id number] Control + Exp date 10/2017 PROCEDURES Procedure Date Ordered Related Diagnosis Body Site URINE TEST Jul 27, 2016 DEPO PROVERA (150 MG/ML) Jul 27, 2016 THER/PROPH/DIAG INJ, SC/IM Jul 27, 2016 IMMUNIZATIONS Vaccine Route Administration Date Status DEPO PROVERA (150 MG/ML) IM Intramuscular Jul 27, 2016 Administered
--- OUTSIDE RECORDS SUMMARY | 2018-07-24 20:54 | XMS REPORT ---
Author Author LEO GREGG Organization [facility] Address [address] [place] [address] Care Team Providers Care Motor Block Mechanic Name Role Phone LEO GREGG Unavailable PROBLEMS Type Condition ICD9-CM Code JQB18-VP Code Onset Dates Condition Status SNOMED Code Problem Chronic daily headache R51 Active 177458161 Problem Episodic cluster headache, not intractable G44.019 Active 175109072 Problem Family history of diabetes mellitus (DM) Z83.3 Active 749796684 Assessment Routine adult health maintenance Z00.00 Jun, Active 076356663 ALLERGIES Substance Reaction Event Type Date Status Imitrex 100 Mg Tablet Myalgias Non Drug Allergy Jun, Active SOCIAL HISTORY No smoking Hx information available PLAN OF CARE VITAL SIGNS Height 64 in 2016-06-21 Weight 206 lbs 2016-06-21 Heart Rate 84 bpm 2016-06-21 Respiratory Rate 18 2016-06-21 BMI 35.36 kg/m2 2016-06-21 Blood pressure systolic 106 mmHg 2016-06-21 Blood pressure diastolic 76 mmHg 2016-06-21 MEDICATIONS Medication Instructions Dosage Frequency Start Date End Date Duration Status Dbsnkjrhgu-YNZG-Onjdyqeh 50-325-40 MG Orally every 4 hrs 1 capsule as needed 4h Feb, Active Depo-Provera 150 MG/ML 1 ml Active Topamax 50 mg Orally Twice a day 1 tablet 12h Feb, Active RESULTS No Results PROCEDURES Procedure Date Ordered Related Diagnosis Body Site Office Visit, Est Pt., Level 2 Jun 21, 2016 IMMUNIZATIONS No Known Immunizations
--- OUTSIDE RECORDS SUMMARY | 2018-07-24 20:54 | XMS REPORT ---
Author Author CHANELLE ARZOLA Organization [facility] Address [address] [place] [address] Care Team Providers Care Director Of Safety Name Role Phone NESSCHANELLE Unavailable PROBLEMS Type Condition ICD9-CM Code OBU35-BU Code Onset Dates Condition Status SNOMED Code Problem Episodic cluster headache, not intractable G44.019 Active 235512584 Problem Family history of diabetes mellitus (DM) Z83.3 Active 188416868 Problem Chronic daily headache R51 Active 863914780 ALLERGIES Substance Reaction Event Type Date Status Imitrex 100 Mg Tablet Myalgias Non Drug Allergy Aug, Active SOCIAL HISTORY Never Assessed PLAN OF CARE VITAL SIGNS Height 64 in 2016-09-03 Weight 218.4 lbs 2016-09-03 Temperature 98.1 degrees Fahrenheit 2016-09-03 Heart Rate 96 bpm 2016-09-03 Respiratory Rate 18 2016-09-03 BMI 37.48 kg/m2 2016-09-03 Blood pressure systolic 114 mmHg 2016-09-03 Blood pressure diastolic 68 mmHg 2016-09-03 MEDICATIONS Medication Instructions Dosage Frequency Start Date End Date Duration Status PredniSONE 20 mg Orally Once a day 2 tablets 24h Aug, Aug, 05 days Active Depo-Provera 150 MG/ML 1 ml Active Cyclobenzaprine HCl 10 mg Orally 2 times a day 1 tablet as needed 12h Aug, Active [place] 5-325 MG Orally every 6 hrs 1 tablet as needed 6h Aug, Active RESULTS No Results PROCEDURES No Known procedures IMMUNIZATIONS No Known Immunizations MEDICAL (GENERAL) HISTORY Type Description Date Medical History migraine headaches Surgical History section x 2 2014 Surgical History tonsillectomy and adenoidectomy Surgical History appendectomy
--- OUTSIDE RECORDS SUMMARY | 2018-07-24 20:54 | XMS REPORT ---
Author Author GABBIE COLÓN [facility] Address [address] [place] [address] Care Team Providers Care National Sales Executive Name Role Phone GABBIE COLÓN Unavailable PROBLEMS Type Condition ICD9-CM Code AYT45-QW Code Onset Dates Condition Status SNOMED Code Problem Constipation, unspecified constipation type K59.00 Active 76004636 Problem Chronic daily headache R51 Active 724059676 Problem Episodic cluster headache, not intractable G44.019 Active 702437735 Problem Family history of diabetes mellitus (DM) Z83.3 Active 468768213 ALLERGIES Substance Reaction Event Type Date Status Imitrex 100 Mg Tablet Myalgias Non Drug Allergy Apr, Active ENCOUNTERS Encounter Location Date Diagnosis [place] [id number] [place] [address] Sep, Encounter for Depo-Provera contraception Z30.42 [place] [id number] [place] [address] Sep, Well woman exam Z01.419 and Cervical cancer screening Z12.4 [place] [id number] [place] [address] Jul, Sports physical Z02.5 and Family history of diabetes mellitus (DM) Z83.3 [place] [id number] [place] [address] Jun, Encounter for Depo-Provera contraception Z30.42 [facility] [id number] [place] [address] Jun, Other viral agents as the cause of diseases classified elsewhere B97.89 and Acute upper respiratory infection, unspecified J06.9 [place] [id number] [place] [address] Apr, Abdominal pain R10.9 and LLQ abdominal pain R10.32 [facility] [address] [place] [address] Apr, Abdominal pain R10.9 and Constipation, unspecified constipation type K59.00 [place] [address] [address] Mar, Encounter for Depo-Provera contraception Z30.42 [facility] [address] [place] [address] Jan, Allergic contact dermatitis, unspecified trigger L23.[address] [address] Jan, Encounter for Depo-Provera contraception Z30.42 [facility] [address] [address] Dec, Acute middle ear effusion, bilateral H65.[address] [address] November, Alopecia L65.9 and Bilateral carpal tunnel syndrome G56.[address] [address] Oct, Encounter for Depo-Provera contraception Z30.42 [place] [address] [address] 17 Aug, 2016 Acute bilateral low back pain without sciatica M54.5 [facility] [place] [id number] [place] [address] 14 Aug, 2016 Sore throat J02.9 ; Other viral agents as the cause of diseases classified elsewhere B97.89 and Acute upper respiratory infection, unspecified J06.9 [facility] [id number] [place] [id number] Jul, Dental examination Z01.20 [place] [address] [place] [address] 10 Jul, 2016 Encounter for Depo-Provera contraception Z30.42 [place] [address] [address] 05 Jun, 2016 Routine adult health maintenance Z00.00 [place] [address] [address] 26 Apr, 2016 NADIRA (secretory otitis media), unspecified laterality H65.90 ; Dizziness R42 and History of UTI Z87.440 [place] [address] [address] 10 Apr, 2016 control counseling Z30.9 and Encounter for Depo- Provera contraception Z30.42 [place] [address] [address] 19 Mar, 2016 [place] [address] [address] 16 Mar, 2016 Chronic daily headache R51 and Family history of diabetes mellitus (DM) Z83.3 [place] [address] [address] 14 Mar, 2016 Chronic daily headache R51 ; Episodic cluster headache, not intractable G44.019 ; Family history of diabetes mellitus (DM) Z83.3 and Environmental allergies Z91.09 [place] [address] [address] Feb, Encounter to establish care Z76.89 and Migraine with aura and without status migrainosus, not intractable G43.109 [place] [address] [address] Oct, [place] [address] [address] Oct, [place] [address] [address] Sep, [place] [address] [place] [address] Sep, [facility] [address] [id number] [place] [address] Apr, [facility] [place] [facility] [address] [id number] [place] [address] Apr, [facility] [address] [id number] [place] [address] Jan, [facility] [place] [facility] [address] [id number] [place] [address] Jan, [facility] [address] [id number] [place] [address] Jul, [facility] [place] [facility] [address] [id number] [place] [address] Jul, [facility] [address] [id number] [place] [address] Jul, [facility] [address] [id number] [place] [address] Jul, [facility] [address] [id number] [place] [address] May, [facility] [address] [id number] [place] [address] May, [facility] [place] [facility] [address] [id number] [place] [address] Mar, [facility] [place] [facility] [address] [id number] [place] [address] November, [facility] [place] [facility] [address] [id number] [place] [address] November, [facility] [place] [facility] [address] [id number] [place] [address] November, [facility] [place] [facility] [address] [id number] [place] [address] Oct, [facility] [place] [facility] [address] [id number] [place] [address] Sep, [facility] [address] [id number] [place] [address] 09 Sep, 2012 [facility] [place] [facility] [address] [id number] [place] [address] 13 Apr, 2012 [facility] [place] [facility] [address] [id number] [place] [address] 13 Apr, 2012 [facility] [place] [facility] [address] [id number] [place] [address] Jul, [facility] [place] [facility] [address] [id number] [place] [address] 28 Jun, 2010 [facility] [address] [id number] [place] [address] 15 Jun, 2010 [facility] [address] [id number] [place] [address] 15 Jun, 2010 [facility] [address] [id number] [place] [address] May, [facility] [address] [id number] [place] [address] May, [facility] [address] [id number] [place] [address] Feb, [facility] [address] [id number] [place] [address] November, [facility] [place] [facility] [address] [id number] [place] [address] 15 Jun, 2009 [facility] [place] [facility] [address] [id number] [place] [address] 15 Jun, 2009 [facility] [place] [facility] [address] [id number] [place] [address] 04 Jun, 2009 [facility] [place] [facility] [address] [id number] [place] [address] May, [facility] [address] [facility] [id number], [place] [address] May, [facility] [address] [id number] [address] May, [facility] [address] [id number] [address] Jul, [facility] [address] [place] [address] November, [facility] [address] [id number] [address] Oct, [facility] [address] [place] [address] Apr, IMMUNIZATIONS No Known Immunizations SOCIAL HISTORY Never Assessed REASON FOR VISIT left lower quad pain and some left flank pain for the past 3 hours. pt is on depo so no menstural periods. pain just all of a sudden came on. denies any urinary symptoms. [email or web address] PLAN OF CARE Activity Details Follow Up prn Reason: VITAL SIGNS Height 64 in 2017-04-22 Weight 222.2 lbs 2017-04-22 Temperature 98.5 degrees Fahrenheit 2017-04-22 Heart Rate 88 bpm 2017-04-22 Respiratory Rate 20 2017-04-22 BMI 38.14 kg/m2 2017-04-22 Blood pressure systolic 116 mmHg 2017-04-22 Blood pressure diastolic 80 mmHg 2017-04-22 MEDICATIONS Medication Instructions Dosage Frequency Start Date End Date Duration Status Depo-Provera 150 MG/ML 1 ml Active RESULTS Name Result Date Reference Range UA LONG DIP (IN HOUSE) 2017-04-22 Lot # [id number] Exp date 2017 Clarity clear Color yellow Odor none GLU negative ABRAM negative KET negative SG >=1.030 BLO negative pH 6.5 Protein negative URO 2.0 NIT negative ARELI negative Lot # [id number] Exp date october 2017 PROCEDURES Procedure Date Ordered Result Body Site URINALYSIS, AUTO, W/O SCOPE Apr 22, 2017 INSTRUCTIONS MEDICATIONS ADMINISTERED No Known Medications MEDICAL (GENERAL) HISTORY Type Description Date Medical History migraine headaches Surgical History section x 2 2014 Surgical History tonsillectomy and adenoidectomy Surgical History appendectomy
--- OUTSIDE RECORDS SUMMARY | 2018-07-24 20:54 | XMS REPORT ---
Author Author MATT BAILON [facility] Address [address] [place] [address] Care Team Providers Care Unit Secy Name Role Phone MATT BAILON Unavailable PROBLEMS Type Condition ICD9-CM Code [id number] Code Onset Dates Condition Status SNOMED Code Problem Constipation, unspecified constipation type K59.00 Active 20974719 Problem Chronic daily headache R51 Active 461982123 Problem Episodic cluster headache, not intractable G44.019 Active 098760784 Problem Family history of diabetes mellitus (DM) Z83.3 Active 551317565 ALLERGIES No Information ENCOUNTERS Encounter Location Date Diagnosis [place] [address] [address] Dec, [facility] [address] [address]- [address] Dec, Encounter for Depo-Provera contraception Z30.42 [place] [address] [address]23- 7827 Sep, Encounter for Depo-Provera contraception Z30.42 [place] [address] [place] [id number] [place] [address] 63869- 7076 Sep, Well woman exam Z01.419 and Cervical cancer screening Z12.4 [place] [address] [place] [id number] [place] [address] 23115- 7293 Jul, Sports physical Z02.5 and Family history of diabetes mellitus (DM) Z83.3 [place] [address] [address]- 0[address] Jun, Encounter for Depo-Provera contraception Z30.42 [facility] [address] [place] [id number] [place] [address] 20934 -7299 Jun, Other viral agents as the cause of diseases classified elsewhere B97.89 and Acute upper respiratory infection, unspecified J06.9 [place] [address] [place] [id number] [place] [address] 18701- 5732 Apr, Abdominal pain R10.9 and LLQ abdominal pain R10.32 [facility] [address] [address] Apr, Abdominal pain R10.9 and Constipation, unspecified constipation type K59.00 [place] [address] 98963- 6638 Mar, Encounter for Depo-Provera contraception Z30.42 [facility] [place] [id number] [place] [address] 29470 -2722 Jan, Allergic contact dermatitis, unspecified trigger L23.[address] [address]56- 7007 Jan, Encounter for Depo-Provera contraception Z30.42 [facility] [place] [id number] [place] [address] 19017 -6294 Dec, Acute middle ear effusion, bilateral H65.193 [place] [address] [place] [id number] [place] [address] 41195- 2228 November, Alopecia L65.9 and Bilateral carpal tunnel syndrome G56.[address] [address]65- 2613 Oct, Encounter for Depo-Provera contraception Z30.42 [place] [address] [place] [id number] [place] [address] 19906- 4452 17 Aug, 2016 Acute bilateral low back pain without sciatica M54.5 [facility] [place] [id number] [place] [address] 96244 -7263 14 Aug, 2016 Sore throat J02.9 ; Other viral agents as the cause of diseases classified elsewhere B97.89 and Acute upper respiratory infection, unspecified J06.9 [facility] [address] [place] [address] [id number] Jul, Dental examination Z01.20 [place] [address] [place] [id number] [place] [address] 34059- 3478 10 Jul, 2016 Encounter for Depo-Provera contraception Z30.42 [place] [address] 33683- 0438 05 Jun, 2016 Routine adult health maintenance Z00.00 [place] [address] [place] [id number] [place] [address] 23358- 7088 26 Apr, 2016 NADIRA (secretory otitis media), unspecified laterality H65.90 ; Dizziness R42 and History of UTI Z87.440 [place] [address] [place] [id number] [place] [address] 61423- 2202 10 Apr, 2016 control counseling Z30.9 and Encounter for Depo- Provera contraception Z30.42 [place] [address] [place] [id number] [place] [address] 58667- 2944 19 Mar, [address] 44066- 5829 16 Mar, 2016 Chronic daily headache R51 and Family history of diabetes mellitus (DM) Z83.3 [place] [address] [place] [id number] [place] [address] 68839- 8680 14 Mar, 2016 Chronic daily headache R51 ; Episodic cluster headache, not intractable G44.019 ; Family history of diabetes mellitus (DM) Z83.3 and Environmental allergies Z91.09 [place] [address] [place] [id number] [place] [address] 42657- 2642 24 Feb, 2016 Encounter to establish care Z76.89 and Migraine with aura and without status migrainosus, not intractable G43.109 [place] [address] [place] [id number] [place] [address] 95536- 9763 Oct, [place] [address] 58920- 4483 Oct, [facility] [place] [facility] [address] [id number] [place] [address]- 3171 Sep, [facility] [place] [facility] [address] [id number] [place] [address]- 7778 Sep, [facility] [place] [facility] [address] [id number] [place] [address]- 0132 Apr, [facility] [place] [facility] [address] [id number] [place] [address]- 6436 Apr, [facility] [place] [facility] [address] [id number] [place] [address]- 3610 Jan, [facility] [place] [facility] [address] [id number] [place] [address]- 0451 Jan, [facility] [place] [facility] [address] [id number] [place] [address]- 8934 Jul, [facility] [place] [facility] [address] [id number] [place] [address]- 0447 Jul, [facility] [place] [facility] [address] [id number] [place] [address]- 9352 Jul, [facility] [place] [facility] [address] [id number] [place] [address]- 1840 Jul, [facility] [place] [facility] [address] [id number] [address]- 9848 May, [facility] [place] [facility] [address] [id number] [place] [address]- 2541 May, [facility] [place] [facility] [address] [id number] [place] [address]- 8996 Mar, [facility] [place] [facility] [address] [id number] [place] [address]- 4577 November, [facility] [place] [facility] [address] [id number] [place] [address]- 9446 November, [facility] [place] [facility] [address] [id number] [place] [address] 2543 06 Nov, 2012 [facility] [address] [id number] [place] [address]- 7699 Oct, [facility] [address] [id number] [place] [address]- 8606 Sep, [facility] [address] [id number] [place] [address] 2546 Sep, [facility] [address] [id number] [place] [address]- 0407 Apr, [facility] [address] [id number] [place] [address]- 4308 Apr, [facility] [address] [id number] [place] [address]- 3722 Jul, [facility] [address] [id number] [place] [address]- 6905 28 Jun, 2010 [facility] [address] [id number] [place] [address]- 9794 15 Jun, 2010 [facility] [address] [id number] [place] [address]- 3229 15 Jun, 2010 [facility] [address] [facility] [id number] [place] [address]- 7172 18 May, 2010 [facility] [address] [id number] [place] [address]- 1195 04 May, 2010 [facility] [place] [facility] [address] [id number] [place] [address]- 2540 Feb, [facility] [place] [facility] [address] [id number] [place] [address]- 1712 13 Nov, 2009 [facility] [place] [facility] [address] [id number] [place] [address]- 2320 15 Jun, 2009 [facility] [place] [facility] [address] [id number] [place] [address]- 9951 15 Jun, 2009 [facility] [address] [id number] [address]- 7616 Jun, [facility] [address] [address]- 0856 May, [facility] [address] [address]- 9996 May, [facility] [address] [address] May, [facility] [address] [address]- 5790 Jul, [facility] [address] [address]- 8076 November, [facility] [address] [address]- 8456 Oct, [facility] [address] [address]- 1726 Apr, IMMUNIZATIONS Vaccine Route Administration Date Status DEPO PROVERA (150 MG/ML) IM Intramuscular Jul 14, 2017 Administered SOCIAL HISTORY Never Assessed REASON FOR VISIT Depo Provera injection PLAN OF CARE Activity Details Follow Up 3 Months Reason: VITAL SIGNS MEDICATIONS Unknown Medications RESULTS Name Result Date Reference Range TEST, URINE (IN HOUSE) 2017-07-14 RESULTS Negative Lot # [id number] Control + Exp date 12/15/18 PROCEDURES Procedure Date Ordered Result Body Site URINE TEST Jul 14, 2017 DEPO PROVERA (150 MG/ML) Jul 14, 2017 THER/PROPH/DIAG INJ, SC/IM Jul 14, 2017 INSTRUCTIONS MEDICATIONS ADMINISTERED No Known Medications MEDICAL (GENERAL) HISTORY Type Description Date Medical History migraine headaches Surgical History section x 2 2014 Surgical History tonsillectomy and adenoidectomy Surgical History appendectomy
--- OUTSIDE RECORDS SUMMARY | 2018-07-24 20:54 | XMS REPORT ---
Author Author JOSETTE GALEANA Organization [facility] Address [address] [place] [address] Care Team Providers Care Rubber Mold Maker Name Role Phone JOSETTE GALEANA Unavailable PROBLEMS Type Condition ICD9-CM Code [id number] Code Onset Dates Condition Status SNOMED Code Problem Constipation, unspecified constipation type K59.00 Active 12489743 Problem Chronic daily headache R51 Active 627920081 Problem Episodic cluster headache, not intractable G44.019 Active 074478726 Problem Family history of diabetes mellitus (DM) Z83.3 Active 179546527 ALLERGIES Substance Reaction Event Type Date Status Imitrex 100 Mg Tablet Myalgias Non Drug Allergy Mar, Active ENCOUNTERS Encounter Location Date Diagnosis [place] [id number] [place] [id number] [place] [address] 81121- 4184 Sep, Encounter for Depo-Provera contraception Z30.42 [place] [address] [place] [id number] [place] [address] 82198- 0078 Sep, Well woman exam Z01.419 and Cervical cancer screening Z12.4 [place] [id number] [place] [address] 81746- 0165 Jul, Sports physical Z02.5 and Family history of diabetes mellitus (DM) Z83.3 [place] [address] [place] [id number] [place] [address] 81580- 5578 Jun, Encounter for Depo-Provera contraception Z30.42 [facility] [address] [place] [id number] [place] [address] 46702 -5619 Jun, Other viral agents as the cause of diseases classified elsewhere B97.89 and Acute upper respiratory infection, unspecified J06.9 [place] [address] [place] [id number] [place] [address] 37069- 6384 Apr, Abdominal pain R10.9 and LLQ abdominal pain R10.32 [facility] N [place] [id number] [place] [address] 61788 -8637 Apr, Abdominal pain R10.9 and Constipation, unspecified constipation type K59.00 [place] [address] [place] [id number] [place] [address] 83814- 5886 Mar, Encounter for Depo-Provera contraception Z30.42 [facility] [address] [address] -7984 Jan, Allergic contact dermatitis, unspecified trigger L23.9 [place] [address] 92360- 7044 Jan, Encounter for Depo-Provera contraception Z30.42 [facility] [place] [id number] [place] [address] 68786 -7298 Dec, Acute middle ear effusion, bilateral H65.193 [place] [address] 21609- 5568 November, Alopecia L65.9 and Bilateral carpal tunnel syndrome G56.03 [place] [address] [place] [id number] [place] [address] 04565- 2154 Oct, Encounter for Depo-Provera contraception Z30.42 [place] [address] [place] [id number] [place] [address] 61931- 9082 17 Aug, 2016 Acute bilateral low back pain without sciatica M54.5 [facility] [place] [id number] [place] [address] 79327 -2024 14 Aug, 2016 Sore throat J02.9 ; Other viral agents as the cause of diseases classified elsewhere B97.89 and Acute upper respiratory infection, unspecified J06.9 [facility] [address] [place] [address] [id number] Jul, Dental examination Z01.20 [place] [address] [place] [id number] [place] [address] 28959- 2299 10 Jul, 2016 Encounter for Depo-Provera contraception Z30.42 [place] [address] 45227- 7455 05 Jun, 2016 Routine adult health maintenance Z00.00 [place] [address] [place] [id number] [place] [address] 04629- 6434 26 Apr, 2016 NADIRA (secretory otitis media), unspecified laterality H65.90 ; Dizziness R42 and History of UTI Z87.440 [place] [address] 82248- 8377 10 Apr, 2016 control counseling Z30.9 and Encounter for Depo- Provera contraception Z30.42 [place] [address] [place] [id number] [place] [address] 60377- 7903 19 Mar, [address] 10965- 2138 16 Mar, 2016 Chronic daily headache R51 and Family history of diabetes mellitus (DM) Z83.3 [place] [id number] [place] [address] 98491- 0136 14 Mar, 2016 Chronic daily headache R51 ; Episodic cluster headache, not intractable G44.019 ; Family history of diabetes mellitus (DM) Z83.3 and Environmental allergies Z91.09 [place] [id number] [place] [address] 02253- 4589 Feb, Encounter to establish care Z76.89 and Migraine with aura and without status migrainosus, not intractable G43.109 [place] [address] [place] [id number] [place] [address] 29220- 1395 Oct, [address] 92489- 1892 Oct, [place] [address] 17491- 3758 Sep, [place] [address] [place] [address]- 1663 Sep, [facility] [address] [id number] [place] [address]- 4841 Apr, [facility] [place] [facility] [address] [id number] [place] 3168 Apr, [facility] [address] [id number] [place] [address]- 6457 Jan, [facility] [place] [facility] [address] [id number] [place] [address]- 6603 Jan, [facility] [address] [id number] [place] 9353 Jul, [facility] [place] [facility] [address] [id number] [place] [address]- 7393 Jul, [facility] [address] [id number] [place] [address]- 5205 Jul, [facility] [address] [id number] [place] [address]- 4942 Jul, [facility] [place] [facility] [address] [id number] [place] [address]- 3467 May, [facility] [address] [id number] [place] [address]- 7041 May, [facility] [place] [facility] [address] [id number] [place] [address]- 3895 Mar, [facility] [place] [facility] [address] [id number] [place] [address]- 6980 November, [facility] [place] [facility] [address] [id number] [place] [address]- 1668 November, [facility] [place] [facility] [address] [id number] [place] [address] 2546 November, [facility] [place] [facility] [address] [id number] [place] [address]- 6866 Oct, [facility] [place] [facility] [address] [id number] [place] [address]- 1574 Sep, [facility] [address] [id number] [place] [address]- 4649 Sep, [facility] [address] [id number] [place] [address]- 4527 13 Apr, 2012 [facility] [address] [id number] [place] [address], [place] [address]- 5208 Apr, [facility] [address] [id number] [place] [address]- 8817 Jul, [facility] [address] [id number] [place] [address]- 4348 28 Jun, 2010 [facility] [address] [id number] [place] [address]- 9216 15 Jun, 2010 [facility] [address] [id number] [place] [address]- 5765 15 Jun, 2010 [facility] [address] [id number] [place] [address]- 7934 May, [facility] [address] [id number] [place] [address]- 2765 May, [facility] [address] [id number] [place] [address]- 0841 Feb, [facility] [address] [id number] [place] [address]- 4681 November, [facility] [address] [id number] [place] [address]- 3286 15 Jun, 2009 [facility] [place] [facility] [address] [id number] [place] [address]- 2676 15 Jun, 2009 [facility] [address] [id number] [place] [address]- 0914 04 Jun, 2009 [facility] [address] [id number], [place] [address] 2546 May, [facility] [address] [facility] [id number], [place] [address]- 5436 May, [facility] [address] [id number] [address]- 2546 May, [facility] [address] [id number] [address]- 2546 Jul, [facility] [address] [id number] [address]- 2546 November, [facility] [address] [facility] [id number], [place] [address]- 5386 14 Oct, 2004 [facility] [address] [id number] [address]- 7856 16 Apr, 2004 IMMUNIZATIONS Vaccine Route Administration Date Status DEPO PROVERA (150 MG/ML) IM Intramuscular Apr 15, 2017 Administered SOCIAL HISTORY Never Assessed REASON FOR VISIT Depo Provera injection---GINI Clemons PLAN OF CARE Activity Details Follow Up 3 Months Reason: VITAL SIGNS MEDICATIONS Medication Instructions Dosage Frequency Start Date End Date Duration Status Depo-Provera 150 MG/ML 1 ml Active RESULTS Name Result Date Reference Range TEST, URINE (IN HOUSE) 2017-04-15 RESULTS Negative Lot # [id number] Control + Exp date 05/08/30 PROCEDURES Procedure Date Ordered Result Body Site URINE TEST Apr 15, 2017 DEPO PROVERA (150 MG/ML) Apr 15, 2017 THER/PROPH/DIAG INJ, SC/IM Apr 15, 2017 INSTRUCTIONS MEDICATIONS ADMINISTERED No Known Medications MEDICAL (GENERAL) HISTORY Type Description Date Medical History migraine headaches Surgical History section x 2 2011, 2014 Surgical History tonsillectomy and adenoidectomy Surgical History appendectomy
--- OUTSIDE RECORDS SUMMARY | 2018-07-24 20:56 | XMS REPORT | Continuity of Care Document ---
Author Author [facility] Address Unknown Phone Unavailable Allergies Active Description Code Type Severity Reaction Onset Reported/Identified Relationship to Patient Clinical Status Yes Imitrex 100 mg tablet Drug Allergy 10/17/2012 Yes Imitrex 100 mg tablet Drug Allergy N/A N/A 10/17/2012 Yes sumatriptan [id number] Drug Allergy Moderate N/A 01/01/2013 Yes sumatriptan succinate [id number] Drug Allergy Moderate N/A 01/01/2013 Medications There is no data. Problems Date Dx Coded Attending Type Code Diagnosis Diagnosed By 02/15/2008 V05.8 Gardasil, Shingles, Other Specified Disease 02/15/2008 V25.40 visit for: contraceptive surveillance 02/15/2008 V05.8 Gardasil, Shingles, Other Specified Disease 02/15/2008 V25.40 visit for: contraceptive surveillance 02/15/2008 V05.8 Gardasil, Shingles, Other Specified Disease 02/15/2008 V25.40 visit for: contraceptive surveillance 02/15/2008 V05.8 Gardasil, Shingles, Other Specified Disease 02/15/2008 V25.40 visit for: contraceptive surveillance 02/15/2008 V05.8 Gardasil, Shingles, Other Specified Disease 02/15/2008 V25.40 visit for: contraceptive surveillance 02/15/2008 V05.8 Gardasil, Shingles, Other Specified Disease 02/15/2008 V25.40 visit for: contraceptive surveillance 02/15/2008 LEO GREGG MD V05.8 Gardasil, Shingles, Other Specified Disease 02/15/2008 LEO GREGG MD V25.40 visit for: contraceptive surveillance 02/15/2008 ASHWINI AN DO V05.8 Gardasil, Shingles, Other Specified Disease 02/15/2008 ASHWINI AN DO V25.40 visit for: contraceptive surveillance 02/15/2008 WILFREDO ALONSO APRN V05.8 Gardasil, Shingles, Other Specified Disease 02/15/2008 WILFREDO ALONSO APRN A V25.40 visit for: contraceptive surveillance 02/15/2008 ASHWINI AN DO V05.8 Gardasil, Shingles, Other Specified Disease 02/15/2008 ASHWINI AN DO V25.40 visit for: contraceptive surveillance 02/15/2008 ANJELICA VÁSQUEZ APRN R V05.8 Gardasil, Shingles, Other Specified Disease 02/15/2008 ANJELICA VÁSQUEZ APRN R V25.40 visit for: contraceptive surveillance 07/29/2008 706.2 Sebaceous Cyst 07/29/2008 706.2 Sebaceous Cyst 07/29/2008 706.2 Sebaceous Cyst 07/29/2008 706.2 Sebaceous Cyst 07/29/2008 706.2 Sebaceous Cyst 07/29/2008 706.2 Sebaceous Cyst 07/29/2008 LEO GREGG MD 706.2 Sebaceous Cyst 07/29/2008 ASHWINI AN DO 706.2 Sebaceous Cyst 07/29/2008 WILFREDO ALONSO APRN 706.2 Sebaceous Cyst 07/29/2008 ASHWINI AN DO 706.2 Sebaceous Cyst 07/29/2008 ANJELICA VÁSQUEZ APRN 706.2 Sebaceous Cyst 09/09/2008 V20.2 Preventive Medicine New Patient Evaluation Childhood 11-2509/09/2008 V20.2 Preventive Medicine New Patient Evaluation Childhood 11-2509/09/2008 V20.2 Preventive Medicine New Patient Evaluation Childhood 11-2509/09/2008 V20.2 Preventive Medicine New Patient Evaluation Childhood 11-2509/09/2008 V20.2 Preventive Medicine New Patient Evaluation Childhood 11-2509/09/2008 V20.2 Preventive Medicine New Patient Evaluation Childhood 11-2509/09/2008 LEO GREGG MD V20.2 Preventive Medicine New Patient Evaluation Childhood 11-2509/09/2008 ASHWINI AN DO V20.2 Preventive Medicine New Patient Evaluation Childhood 11-2509/09/2008 WILFREDO ALONSO APRN V20.2 Preventive Medicine New Patient Evaluation Childhood 11-2509/09/2008 ASHWINI AN DO V20.2 Preventive Medicine New Patient Evaluation Childhood 5-11 09/09/2008 ANJELICA VÁSQUEZ APRN V20.2 Preventive Medicine New Patient Evaluation Childhood 5-11 02/18/2009 V25.41 visit for: contraceptive surveillance pill 02/18/2009 V72.31 Pelvic Exam ( Internal) 02/18/2009 V74.5 visit for: screening exam bact/spirochetal venereal disease 02/18/2009 V25.41 visit for: contraceptive surveillance pill 02/18/2009 V72.31 Pelvic Exam ( Internal) 02/18/2009 V74.5 visit for: screening exam bact/spirochetal venereal disease 02/18/2009 V25.41 Visit For: Contraceptive Surveillance Pill 02/18/2009 V72.31 Pelvic Exam ( internal) 02/18/2009 V74.5 Visit For: Screening Exam Bact/spirochetal Venereal Disease 02/18/2009 V25.41 Visit For: Contraceptive Surveillance Pill 02/18/2009 V72.31 Pelvic Exam ( internal) 02/18/2009 V74.5 Visit For: Screening Exam Bact/spirochetal Venereal Disease 02/18/2009 V25.41 Visit For: Contraceptive Surveillance Pill 02/18/2009 V72.31 Pelvic Exam ( internal) 02/18/2009 V74.5 Visit For: Screening Exam Bact/spirochetal Venereal Disease 02/18/2009 V25.41 Visit For: Contraceptive Surveillance Pill 02/18/2009 V72.31 Pelvic Exam ( internal) 02/18/2009 V74.5 Visit For: Screening Exam Bact/spirochetal Venereal Disease 02/18/2009 LEO GREGG MD V25.41 Visit For: Contraceptive Surveillance Pill 02/18/2009 LEO GREGG MD V72.31 Pelvic Exam (internal) 02/18/2009 LEO GREGG MD V74.5 Visit For: Screening Exam Bact/spirochetal Venereal Disease 02/18/2009 ASHWINI AN DO V25.41 Visit For: Contraceptive Surveillance Pill 02/18/2009 ASHWINI AN DO V72.31 Pelvic Exam (internal) 02/18/2009 ASHWINI AN DO V74.5 Visit For: Screening Exam Bact/spirochetal Venereal Disease 02/18/2009 WILFREDO ALONSO APRN V25.41 Visit For: Contraceptive Surveillance Pill 02/18/2009 WILFREDO ALONSO APRN V72.31 Pelvic Exam (internal) 02/18/2009 WILFREDO ALONSO APRN V74.5 Visit For: Screening Exam Bact/spirochetal Venereal Disease 02/18/2009 BIB AN DOA K V25.41 Visit For: Contraceptive Surveillance Pill 02/18/2009 BIB AN DOA K V72.31 Pelvic Exam (internal) 02/18/2009 BIB AN DOA K V74.5 Visit For: Screening Exam Bact/spirochetal Venereal Disease 02/18/2009 EUGENIO VÁSQUEZ APRNINA R V25.41 Visit For: Contraceptive Surveillance Pill 02/18/2009 ANEJLICA VÁSQUEZ APRN R V72.31 Pelvic Exam (internal) 02/18/2009 EUGENIO VÁSQUEZ APRNINA R V74.5 Visit For: Screening Exam Bact/spirochetal Venereal Disease 03/20/2009 465.9 Upper Respiratory Infection 03/20/2009 786.2 Cough 03/20/2009 465.9 Upper Respiratory Infection 03/20/2009 786.2 Cough 03/20/2009 465.9 Upper Respiratory Infection 03/20/2009 786.2 Cough 03/20/2009 465.9 Upper Respiratory Infection 03/20/2009 786.2 Cough 03/20/2009 465.9 Upper Respiratory Infection 03/20/2009 786.2 Cough 03/20/2009 465.9 Upper Respiratory Infection 03/20/2009 786.2 Cough 03/20/2009 LEO GREGG MD 465.9 Upper Respiratory Infection 03/20/2009 LEO GREGG MD 786.2 Cough 03/20/2009 BIB AN DOA K 465.9 Upper Respiratory Infection 03/20/2009 JUVE ORTEGA, ASHWINI K 786.2 Cough 03/20/2009 WILFREDO ALONSO APRN A 465.9 Upper Respiratory Infection 03/20/2009 WILFREDO ALONSO APRN A 786.2 Cough 03/20/2009 BIB AN DOA K 465.9 Upper Respiratory Infection 03/20/2009 AN DO ASHWINI K 786.2 Cough 03/20/2009 EUGENIO VÁSQUEZ APRNINA R 465.9 Upper Respiratory Infection 03/20/2009 EUGENIO VÁSQUEZ APRNINA R 786.2 Cough 05/27/2009 719.46 Pain In Joint , Lower Leg 05/27/2009 719.46 Pain In Joint , Lower Leg 05/27/2009 719.46 Pain In Joint , Lower Leg 05/27/2009 719.46 Pain In Joint , Lower Leg 05/27/2009 719.46 Pain In Joint , Lower Leg 05/27/2009 719.46 Pain In Joint , Lower Leg 05/27/2009 LEO GREGG MD 719.46 Pain In Joint, Lower Leg 05/27/2009 ASHWINI AN DO 719.46 Pain In Joint, Lower Leg 05/27/2009 CELESTE OAKLEY, WILFREDO A 719.46 Pain In Joint, Lower Leg 05/27/2009 ASHWINI AN DO 719.46 Pain In Joint, Lower Leg 05/27/2009 ANJELICA VÁSQUEZ APRN R 719.46 Pain In Joint, Lower Leg 07/01/2009 616.10 VAGINITIS 07/01/2009 616.10 VAGINITIS 07/01/2009 616.10 Vaginitis 07/01/2009 616.10 Vaginitis 07/01/2009 616.10 Vaginitis 07/01/2009 616.10 Vaginitis 07/01/2009 LEO GREGG MD 616.10 Vaginitis 07/01/2009 ASHWINI AN DO 616.10 Vaginitis 07/01/2009 WILFREDO ALONSO APRN A 616.10 Vaginitis 07/01/2009 ASHWINI AN DO 616.10 Vaginitis 07/01/2009 ANJELICA VÁSQUEZ APRN R 616.10 Vaginitis 09/09/2009 V69.2 sexually active, frequently with new partners 09/09/2009 V69.2 sexually active, frequently with new partners 09/09/2009 V69.2 Sexually Active, Frequently With New Partners 09/09/2009 V69.2 Sexually Active, Frequently With New Partners 09/09/2009 V69.2 Sexually Active, Frequently With New Partners 09/09/2009 V69.2 Sexually Active, Frequently With New Partners 09/09/2009 LEO GREGG MD V69.2 Sexually Active, Frequently With New Partners 09/09/2009 ASHWINI AN DO V69.2 Sexually Active, Frequently With New Partners 09/09/2009 CELESTE OAKLEY WILFREDO A V69.2 Sexually Active, Frequently With New Partners 09/09/2009 ASHWINI AN DO K V69.2 Sexually Active, Frequently With New Partners 09/09/2009 FAHAD OAKLEY, ANJELICA R V69.2 Sexually Active, Frequently With New Partners 09/15/2009 780.4 Dizziness And Giddiness 09/15/2009 784.0 Headache 09/15/2009 780.4 Dizziness And Giddiness 09/15/2009 784.0 Headache 09/15/2009 780.4 Dizziness And Giddiness 09/15/2009 784.0 Headache 09/15/2009 780.4 Dizziness And Giddiness 09/15/2009 784.0 Headache 09/15/2009 780.4 Dizziness And Giddiness 09/15/2009 784.0 Headache 09/15/2009 780.4 Dizziness And Giddiness 09/15/2009 784.0 Headache 09/15/2009 LEO GREGG MD 780.4 Dizziness And Giddiness 09/15/2009 LEO GREGG MD 784.0 Headache 09/15/2009 ASHWINI AN DO K 780.4 Dizziness And Giddiness 09/15/2009 BIB AN DOA K 784.0 Headache 09/15/2009 WILFREDO ALONSO APRN A 780.4 Dizziness And Giddiness 09/15/2009 CASSIE ALONSO APRNIDI A 784.0 Headache 09/15/2009 BIB AN DOA K 780.4 Dizziness And Giddiness 09/15/2009 BIB AN DOA K 784.0 Headache 09/15/2009 FAHAD OAKLEY ANJELICA R 780.4 Dizziness And Giddiness 09/15/2009 FAHAD OAKLEY, ANJELICA R 784.0 Headache 11/27/2009 462 Pharyngitis Acute 11/27/2009 462 Pharyngitis Acute 11/27/2009 462 Pharyngitis Acute 11/27/2009 462 Pharyngitis Acute 11/27/2009 462 Pharyngitis Acute 11/27/2009 462 Pharyngitis Acute 11/27/2009 LEO GREGG MD 462 Pharyngitis Acute 11/27/2009 ASHWINI AN DO 462 Pharyngitis Acute 11/27/2009 WILFREDO ALONSO APRN A 462 Pharyngitis Acute 11/27/2009 ASHWINI AN DO 462 Pharyngitis Acute 11/27/2009 ANJELICA VÁSQUEZ APRN 462 Pharyngitis Acute 01/22/2010 795.05 CERVICAL HIGH RISK HUMAN PAPILLOMAVIRUS (HPV) DNA TEST POSITIVE 01/22/2010 V65.45 COUNSELING ON OTHER SEXUALLY TRANSMITTED DISEASES 01/22/2010 795.05 CERVICAL HIGH RISK HUMAN PAPILLOMAVIRUS (HPV) DNA TEST POSITIVE 01/22/2010 V65.45 COUNSELING ON OTHER SEXUALLY TRANSMITTED DISEASES 01/22/2010 795.05 CERVICAL HIGH RISK HUMAN PAPILLOMAVIRUS (HPV) DNA TEST POSITIVE 01/22/2010 V65.45 Counseling On Other Sexually Transmitted Diseases 01/22/2010 795.05 CERVICAL HIGH RISK HUMAN PAPILLOMAVIRUS (HPV) DNA TEST POSITIVE 01/22/2010 V65.45 Counseling On Other Sexually Transmitted Diseases 01/22/2010 795.05 CERVICAL HIGH RISK HUMAN PAPILLOMAVIRUS (HPV) DNA TEST POSITIVE 01/22/2010 V65.45 Counseling On Other Sexually Transmitted Diseases 01/22/2010 795.05 CERVICAL HIGH RISK HUMAN PAPILLOMAVIRUS (HPV) DNA TEST POSITIVE 01/22/2010 V65.45 Counseling On Other Sexually Transmitted Diseases 01/22/2010 LEO GREGG MD 795.05 CERVICAL HIGH RISK HUMAN PAPILLOMAVIRUS (HPV) DNA TEST POSITIVE 01/22/2010 LEO GREGG MD V65.45 Counseling On Other Sexually Transmitted Diseases 01/22/2010 ASHWINI AN DO 795.05 CERVICAL HIGH RISK HUMAN PAPILLOMAVIRUS (HPV) DNA TEST POSITIVE 01/22/2010 ASHWINI AN DO V65.45 Counseling On Other Sexually Transmitted Diseases 01/22/2010 WILFREDO ALONSO APRN A 795.05 CERVICAL HIGH RISK HUMAN PAPILLOMAVIRUS (HPV) DNA TEST POSITIVE 01/22/2010 WILFREDO ALONSO APRN A V65.45 Counseling On Other Sexually Transmitted Diseases 01/22/2010 ASHWINI AN DO 795.05 CERVICAL HIGH RISK HUMAN PAPILLOMAVIRUS (HPV) DNA TEST POSITIVE 01/22/2010 ASHWINI AN DO V65.45 Counseling On Other Sexually Transmitted Diseases 01/22/2010 ANJELICA VÁSQUEZ APRN 795.05 CERVICAL HIGH RISK HUMAN PAPILLOMAVIRUS (HPV) DNA TEST POSITIVE 01/22/2010 ANJELICA VÁSQUEZ APRN V65.45 Counseling On Other Sexually Transmitted Diseases 02/24/2010 380.10 Otitis Externa Unspecified 02/24/2010 786.05 Shortness Of Breath 02/24/2010 788.41 Urinary Frequency 02/24/2010 380.10 Otitis Externa Unspecified 02/24/2010 786.05 Shortness Of Breath 02/24/2010 788.41 Urinary Frequency 02/24/2010 380.10 Otitis Externa Unspecified 02/24/2010 786.05 Shortness Of Breath 02/24/2010 788.41 Urinary Frequency 02/24/2010 380.10 Otitis Externa Unspecified 02/24/2010 786.05 Shortness Of Breath 02/24/2010 788.41 Urinary Frequency 02/24/2010 380.10 Otitis Externa Unspecified 02/24/2010 786.05 Shortness Of Breath 02/24/2010 788.41 Urinary Frequency 02/24/2010 380.10 Otitis Externa Unspecified 02/24/2010 786.05 Shortness Of Breath 02/24/2010 788.41 Urinary Frequency 02/24/2010 LEO GREGG MD 380.10 Otitis Externa Unspecified 02/24/2010 LEO GREGG MD 786.05 Shortness Of Breath 02/24/2010 LEO GREGG MD 788.41 Urinary Frequency 02/24/2010 AN DO, ASHWINI K 380.10 Otitis Externa Unspecified 02/24/2010 AN DO, ASHWINI K 786.05 Shortness Of Breath 02/24/2010 AN DO, ASHWINI K 788.41 Urinary Frequency 02/24/2010 CELESTE TROLLEY COLLECTOR, WILFREDO A 380.10 Otitis Externa Unspecified 02/24/2010 CELESTE TROLLEY COLLECTOR, WILFREDO A 786.05 Shortness Of Breath 02/24/2010 CELESTE TROLLEY COLLECTOR, WILFREDO A 788.41 Urinary Frequency 02/24/2010 AN DO, ASHWINI K 380.10 Otitis Externa Unspecified 02/24/2010 AN DO, ASHWINI K 786.05 Shortness Of Breath 02/24/2010 AN DO, ASHWINI K 788.41 Urinary Frequency 02/24/2010 EUGENIO VÁSQUEZ APRNINA R 380.10 Otitis Externa Unspecified 02/24/2010 EUGENIO VÁSQUEZ APRNINA R 786.05 Shortness Of Breath 02/24/2010 EUGENIO VÁSQUEZ APRNINA R 788.41 Urinary Frequency 03/17/2010 296.90 MOOD DISORDER 03/17/2010 724.5 Backache Unspecified 03/17/2010 780.79 Malaise And Fatigue 03/17/2010 296.90 MOOD DISORDER 03/17/2010 724.5 Backache Unspecified 03/17/2010 780.79 Malaise And Fatigue 03/17/2010 296.90 MOOD DISORDER 03/17/2010 724.5 Backache Unspecified 03/17/2010 780.79 Malaise And Fatigue 03/17/2010 296.90 MOOD DISORDER 03/17/2010 724.5 Backache Unspecified 03/17/2010 780.79 Malaise And Fatigue 03/17/2010 296.90 MOOD DISORDER 03/17/2010 724.5 Backache Unspecified 03/17/2010 780.79 Malaise And Fatigue 03/17/2010 296.90 MOOD DISORDER 03/17/2010 724.5 Backache Unspecified 03/17/2010 780.79 Malaise And Fatigue 03/17/2010 LEO GREGG MD 296.90 MOOD DISORDER 03/17/2010 LEO GREGG MD 724.5 Backache Unspecified 03/17/2010 LEO GREGG MD 780.79 Malaise And Fatigue 03/17/2010 AN DO, ASHWINI K 296.90 MOOD DISORDER 03/17/2010 AN DO, ASHWINI K 724.5 Backache Unspecified 03/17/2010 AN DO, ASHWINI K 780.79 Malaise And Fatigue 03/17/2010 CELESTE TROLLEY COLLECTOR, WILFREDO A 296.90 MOOD DISORDER 03/17/2010 CELESTE TROLLEY COLLECTOR, WILFREDO A 724.5 Backache Unspecified 03/17/2010 CELESTE TROLLEY COLLECTOR, WILFREDO A 780.79 Malaise And Fatigue 03/17/2010 AN DO, ASHWINI K 296.90 MOOD DISORDER 03/17/2010 AN DO, ASHWINI K 724.5 Backache Unspecified 03/17/2010 AN DO, ASHWINI K 780.79 Malaise And Fatigue 03/17/2010 FAHAD OAKLEY ANJELICA R 296.90 MOOD DISORDER 03/17/2010 EUGENIO VÁSQUEZ APRNINA R 724.5 Backache Unspecified 03/17/2010 ANJELICA VÁSQUEZ APRN R 780.79 Malaise And Fatigue 04/13/2010 Ot 626.8 04/14/2010 Ot 625.9 05/21/2010 625.3 DYSMENORRHEA 05/21/2010 691.8 Dermatitis Atopic Eczema 05/21/2010 625.3 DYSMENORRHEA 05/21/2010 691.8 Dermatitis Atopic Eczema 05/21/2010 625.3 Dysmenorrhea 05/21/2010 691.8 Dermatitis Atopic Eczema 05/21/2010 625.3 Dysmenorrhea 05/21/2010 691.8 Dermatitis Atopic Eczema 05/21/2010 625.3 Dysmenorrhea 05/21/2010 691.8 Dermatitis Atopic Eczema 05/21/2010 625.3 Dysmenorrhea 05/21/2010 691.8 Dermatitis Atopic Eczema 05/21/2010 LEO GREGG MD 625.3 Dysmenorrhea 05/21/2010 LEO GREGG MD 691.8 Dermatitis Atopic Eczema 05/21/2010 BIB AN DOA K 625.3 Dysmenorrhea 05/21/2010 AN DO ASHWINI K 691.8 Dermatitis Atopic Eczema 05/21/2010 WILFREDO ALONSO APRN A 625.3 Dysmenorrhea 05/21/2010 WILFREDO ALONSO APRN A 691.8 Dermatitis Atopic Eczema 05/21/2010 AN BIB ORTEGAA K 625.3 Dysmenorrhea 05/21/2010 AN DO ASHWINI K 691.8 Dermatitis Atopic Eczema 05/21/2010 EUGENIO VÁSQUEZ APRNINA R 625.3 Dysmenorrhea 05/21/2010 EUGENIO VÁSQUEZ APRNINA R 691.8 Dermatitis Atopic Eczema 06/04/2010 V74.1 Screening Examination For Pulmonary Tuberculosis 06/04/2010 V74.1 Screening Examination For Pulmonary Tuberculosis 06/04/2010 V74.1 Screening Examination For Pulmonary Tuberculosis 06/04/2010 V74.1 Screening Examination For Pulmonary Tuberculosis 06/04/2010 V74.1 Screening Examination For Pulmonary Tuberculosis 06/04/2010 V74.1 Screening Examination For Pulmonary Tuberculosis 06/04/2010 LEO GREGG MD V74.1 Screening Examination For Pulmonary Tuberculosis 06/04/2010 ASHWINI AN DO K V74.1 Screening Examination For Pulmonary Tuberculosis 06/04/2010 WILFREDO ALONSO APRN A V74.1 Screening Examination For Pulmonary Tuberculosis 06/04/2010 ASHWINI AN DO K V74.1 Screening Examination For Pulmonary Tuberculosis 06/04/2010 ANJELICA VÁSQUEZ APRN V74.1 Screening Examination For Pulmonary Tuberculosis 07/01/2010 133.0 Scabies 07/01/2010 133.0 Scabies 07/01/2010 133.0 Scabies 07/01/2010 133.0 Scabies 07/01/2010 133.0 Scabies 07/01/2010 133.0 Scabies 07/01/2010 LEO GREGG MD 133.0 Scabies 07/01/2010 ASHWINI AN DO K 133.0 Scabies 07/01/2010 WILFREDO ALONSO APRN 133.0 Scabies 07/01/2010 AN ASHWINI ORTEGA K 133.0 Scabies 07/01/2010 ANJELICA VÁSQUEZ APRN 133.0 Scabies 07/14/2010 692.9 DERMATITIS 07/14/2010 692.9 DERMATITIS 07/14/2010 692.9 Dermatitis 07/14/2010 692.9 DERMATITIS 07/14/2010 692.9 DERMATITIS 07/14/2010 692.9 DERMATITIS 07/14/2010 LEO GREGG MD 692.9 DERMATITIS 07/14/2010 BIB AN DOA K 692.9 DERMATITIS 07/14/2010 WILFREDO ALONSO APRN 692.9 DERMATITIS 07/14/2010 AN DO ASHWINI K 692.9 DERMATITIS 07/14/2010 ANJELICA VÁSQUEZ APRN 692.9 DERMATITIS 07/27/2010 Ot 599.70 07/27/2010 Ot 620.2 07/27/2010 Ot 789.04 07/28/2010 380.10 INFECTIVE OTITIS EXTERNA UNSPECIFIED 07/28/2010 691.8 Dermatitis Atopic Eczema 07/28/2010 380.10 INFECTIVE OTITIS EXTERNA UNSPECIFIED 07/28/2010 691.8 Dermatitis Atopic Eczema 07/28/2010 380.10 Infective Otitis Externa Unspecified 07/28/2010 691.8 Dermatitis Atopic Eczema 07/28/2010 380.10 Infective Otitis Externa Unspecified 07/28/2010 691.8 Dermatitis Atopic Eczema 07/28/2010 380.10 Infective Otitis Externa Unspecified 07/28/2010 691.8 Dermatitis Atopic Eczema 07/28/2010 380.10 Infective Otitis Externa Unspecified 07/28/2010 691.8 Dermatitis Atopic Eczema 07/28/2010 LEO GREGG MD 380.10 Infective Otitis Externa Unspecified 07/28/2010 LEO GREGG MD 691.8 Dermatitis Atopic Eczema 07/28/2010 ASHWINI AN DO K 380.10 Infective Otitis Externa Unspecified 07/28/2010 BIB AN DOA K 691.8 Dermatitis Atopic Eczema 07/28/2010 CELESTEWILFREDO Martinez APRN A 380.10 Infective Otitis Externa Unspecified 07/28/2010 CELESTECASSIE Martinez APRNIDI A 691.8 Dermatitis Atopic Eczema 07/28/2010 ASHWINI AN DO K 380.10 Infective Otitis Externa Unspecified 07/28/2010 ASHWINI AN DO K 691.8 Dermatitis Atopic Eczema 07/28/2010 FAHAD OAKLEY ANJELICA R 380.10 Infective Otitis Externa Unspecified 07/28/2010 FAHAD OAKLEY ANJELICA R 691.8 Dermatitis Atopic Eczema 08/21/2010 780.79 Malaise And Fatigue 08/21/2010 788.1 DYSURIA 08/21/2010 780.79 Malaise And Fatigue 08/21/2010 788.1 DYSURIA 08/21/2010 780.79 Malaise And Fatigue 08/21/2010 788.1 Dysuria 08/21/2010 780.79 Malaise And Fatigue 08/21/2010 788.1 Dysuria 08/21/2010 780.79 Malaise And Fatigue 08/21/2010 788.1 Dysuria 08/21/2010 780.79 Malaise And Fatigue 08/21/2010 788.1 Dysuria 08/21/2010 LEO GREGG MD 780.79 Malaise And Fatigue 08/21/2010 LEO GREGG MD 788.1 Dysuria 08/21/2010 ASHWINI AN DO 780.79 Malaise And Fatigue 08/21/2010 ASHWINI AN DO 788.1 Dysuria 08/21/2010 CELESTEWILFREDO Martinez APRN 780.79 Malaise And Fatigue 08/21/2010 CELESTEWILFREDO Martinez APRN 788.1 Dysuria 08/21/2010 ASHWINI AN DO 780.79 Malaise And Fatigue 08/21/2010 ASHWINI AN DO 788.1 Dysuria 08/21/2010 ANJELICA VÁSQUEZ APRN 780.79 Malaise And Fatigue 08/21/2010 ANJELICA VÁSQUEZ APRN 788.1 Dysuria 11/16/2010 Ot 599.0 11/16/2010 Ot 788.1 03/19/2011 465.9 UPPER RESPIRATORY INFECTION 03/19/2011 465.9 UPPER RESPIRATORY INFECTION 03/19/2011 465.9 Upper Respiratory Infection 03/19/2011 465.9 Upper Respiratory Infection 03/19/2011 465.9 Upper Respiratory Infection 03/19/2011 465.9 Upper Respiratory Infection 03/19/2011 LEO GREGG MD 465.9 Upper Respiratory Infection 03/19/2011 ASHWINI AN DO 465.9 Upper Respiratory Infection 03/19/2011 WILFREDO ALONSO APRN 465.9 Upper Respiratory Infection 03/19/2011 ASHWINI AN DO 465.9 Upper Respiratory Infection 03/19/2011 ANJELICA VÁSQUEZ APRN 465.9 Upper Respiratory Infection 04/16/2011 V72.42 TEST POSITIVE RESULT 04/16/2011 V72.42 TEST POSITIVE RESULT 04/16/2011 V72.42 TEST POSITIVE RESULT 04/16/2011 V72.42 TEST POSITIVE RESULT 04/16/2011 V72.42 TEST POSITIVE RESULT 04/16/2011 V72.42 TEST POSITIVE RESULT 04/16/2011 LEO GREGG MD V72.42 TEST POSITIVE RESULT 04/16/2011 ASHWINI AN DO V72.42 TEST POSITIVE RESULT 04/16/2011 WILFREDO ALONSO APRN V72.42 TEST POSITIVE RESULT 04/16/2011 ASHWINI AN DO V72.42 TEST POSITIVE RESULT 04/16/2011 ANJELICA VÁSQUEZ APRN V72.42 TEST POSITIVE RESULT 10/06/2011 Ot 644.03 11/28/2011 Ot 276.51 DEHYDRATION 11/28/2011 Ot 646.83 PREG COMPL NEC-ANTEPART 11/28/2011 Ot 780.4 DIZZINESS AND GIDDINESS 12/11/2011 Ot 285.1 AC POSTHEMORRHAG ANEMIA 12/11/2011 Ot 648.22 ANEMIA- DELIVERED W P/P 12/11/2011 Ot 659.71 ABN DEL FET HT RT/RHYTHM,W OR W/O MENTIO 12/11/2011 Ot 661.01 PRIM UTERINE INERT-DELIV 12/11/2011 Ot V06.1 DIPHTHERIA- TETANUS-PERTUSSIS, COMBINED [ 12/11/2011 Ot V27.0 DELIVER- SINGLE LIVEBORN 02/14/2012 Ot 784.0 HEADACHE 04/11/2012 Ot 782.0 SKIN SENSATION DISTURB 05/05/2012 626.9 MENSTRUATION AND OTHER ABNORMAL BLEEDING FROM FEMALE GENITAL TRACT 10/09/2012 461.9 SINUSITIS ACUTE 10/09/2012 784.0 headache 10/09/2012 461.9 Sinusitis Acute 10/09/2012 784.0 headache 10/09/2012 461.9 Sinusitis Acute 10/09/2012 784.0 headache 10/09/2012 461.9 Sinusitis Acute 10/09/2012 784.0 headache 10/09/2012 461.9 Sinusitis Acute 10/09/2012 784.0 headache 10/09/2012 LEO GREGG MD 461.9 Sinusitis Acute 10/09/2012 LEO GREGG MD 784.0 headache 10/09/2012 ASHWINI AN DO K 461.9 Sinusitis Acute 10/09/2012 ASHWINI AN DO K 784.0 headache 10/09/2012 WILFREDO ALONSO APRN A 461.9 Sinusitis Acute 10/09/2012 CASSIE ALONSO APRNIDI A 784.0 headache 10/09/2012 ASHWINI AN DO K 461.9 Sinusitis Acute 10/09/2012 ASHWINI NA DO K 784.0 headache 10/09/2012 EUGENIO VÁSQUEZ APRNINA R 461.9 Sinusitis Acute 10/09/2012 FAHAD OAKLEY ANJELICA R 784.0 headache 10/09/2012 626.9 MENSTRUATION AND OTHER ABNORMAL BLEEDING FROM FEMALE GENITAL TRACT 10/17/2012 626.9 Menstruation And Other Abnormal Bleeding From Female Genital Tract 11/20/2012 784.91 Postnasal Drip 11/20/2012 784.91 Postnasal Drip 11/20/2012 784.91 Postnasal Drip 11/20/2012 LEO GRGEG MD 784.91 Postnasal Drip 11/20/2012 ASHWINI AN DO 784.91 Postnasal Drip 11/20/2012 WILFREDO ALONSO APRN A 784.91 Postnasal Drip 11/20/2012 ASHWINI AN DO 784.91 Postnasal Drip 11/20/2012 ANJELICA VÁSQUEZ APRN 784.91 Postnasal Drip 11/20/2012 626.9 Menstruation And Other Abnormal Bleeding From Female Genital Tract 11/28/2012 709.9 UNSPECIFIED DISORDER OF SKIN AND SUBCUTANEOUS TISSUE 11/28/2012 709.9 UNSPECIFIED DISORDER OF SKIN AND SUBCUTANEOUS TISSUE 11/28/2012 LEO GREGG MD 709.9 UNSPECIFIED DISORDER OF SKIN AND SUBCUTANEOUS TISSUE 11/28/2012 ASHWINI AN DO 709.9 UNSPECIFIED DISORDER OF SKIN AND SUBCUTANEOUS TISSUE 11/28/2012 WILFREDO ALONSO APRN 709.9 UNSPECIFIED DISORDER OF SKIN AND SUBCUTANEOUS TISSUE 11/28/2012 ASHWINI AN DO 709.9 UNSPECIFIED DISORDER OF SKIN AND SUBCUTANEOUS TISSUE 11/28/2012 ANJELICA VÁSQUEZ APRN 709.9 UNSPECIFIED DISORDER OF SKIN AND SUBCUTANEOUS TISSUE 11/28/2012 626.9 Menstruation And Other Abnormal Bleeding From Female Genital Tract 12/14/2012 V72.41 TEST NEGATIVE RESULT 12/14/2012 LEO GREGG MD V72.41 TEST NEGATIVE RESULT 12/14/2012 ASHWINI AN DO V72.41 TEST NEGATIVE RESULT 12/14/2012 WILFREDO ALONSO APRN A V72.41 TEST NEGATIVE RESULT 12/14/2012 ASHWINI AN DO V72.41 TEST NEGATIVE RESULT 12/14/2012 ANJELICA VÁSQUEZ APRN V72.41 TEST NEGATIVE RESULT 12/14/2012 626.9 Menstruation And Other Abnormal Bleeding From Female Genital Tract 01/01/2013 VALENTE DURAN Ot 346.90 MIGRAINE UNSPECIFIED W/O INTRACT MGRN W/ 01/01/2013 VALENTE DURAN Ot 784.0 HEADACHE 03/04/2013 JOHNNY DEMPSEY, DANIEL Keen Ot 787.02 NAUSEA ALONE 03/04/2013 JOHNNY DEMPSEY, DANIEL Keen Ot 789.09 ABDOMINAL PAIN, OTHER SPECIFIED SITE 06/01/2013 LEO GREGG MD 079.99 UNSPECIFIED VIRAL INFECTION 06/01/2013 ASHWINI AN DO 079.99 UNSPECIFIED VIRAL INFECTION 06/01/2013 WILFREDO ALONSO APRN A 079.99 UNSPECIFIED VIRAL INFECTION 06/01/2013 ASHWNII AN DO 079.99 UNSPECIFIED VIRAL INFECTION 06/01/2013 ANJELICA VÁSQUEZ APRN R 079.99 UNSPECIFIED VIRAL INFECTION 06/01/2013 LEO GREGG MD 626.9 Menstruation And Other Abnormal Bleeding From Female Genital Tract 06/07/2013 NASIMA DEMPSEY, NIYAH Byrd Ot 789.00 ABDOMINAL PAIN, UNSPECIFIED SITE 08/07/2013 ASHWINI AN DO 626.9 Menstruation And Other Abnormal Bleeding From Female Genital Tract 04/03/2014 JOHNNY DEMPSEY, DANIEL Keen Ot 780.4 DIZZINESS AND GIDDINESS 04/03/2014 JOHNNY DEMPSEY, DANIEL Keen Ot 787.01 NAUSEA WITH VOMITING 04/29/2014 WILFREDO ALONSO APRN A 110.5 DERMATOPHYTOSIS OF THE BODY 04/29/2014 ASHWINI AN DO 110.5 DERMATOPHYTOSIS OF THE BODY 04/29/2014 ANJELICA VÁSQUEZ APRN R 110.5 DERMATOPHYTOSIS OF THE BODY 04/30/2014 WILFREDO ALONSO APRN 626.9 Menstruation And Other Abnormal Bleeding From Female Genital Tract 10/10/2014 ASHWINI AN DO 626.9 Menstruation And Other Abnormal Bleeding From Female Genital Tract 11/06/2014 ANJELICA VÁSQUEZ APRN 626.9 Menstruation And Other Abnormal Bleeding From Female Genital Tract 05/28/2015 ANN LONGORIA DO Ot N94.89 OT COND ASSOC W FEMALE GENITAL ORGANS A 05/28/2015 ANN LONGORIA DO Ot O34.21 MATERNAL CARE FOR SCAR FROM PREVIOUS JAYME 05/28/2015 ANN LONGORIA DO, Ot O99.89 OT DISEASES AND CONDITIONS COMPL PREG/C 05/28/2015 ANN LONGORIA DO, Ot Z3A.00 WEEKS OF GESTATION OF NOT SPEC 2015 ANN LONGORIA DO Ot D62 ACUTE POSTHEMORRHAGIC ANEMIA 2015 ANN LONGORIA DO Ot O34.21 MATERNAL CARE FOR SCAR FROM PREVIOUS JAYME 2015 ANN LONGORIA DO Ot O90.81 ANEMIA OF THE PUERPERIUM 2015 ANN LONGORIA DO Ot Z23 ENCOUNTER FOR IMMUNIZATION 2015 ANN LONGORIA DO Ot Z37.0 SINGLE LIVE 2015 ANN LONGORIA DO Ot Z3A.39 39 WEEKS GESTATION OF 04/29/2017 ANN LONGORIA DO Ot O34.21 MATERNAL CARE FOR SCAR FROM PREVIOUS JAYME 04/29/2017 ANN LONGORIA DO Ot Z01.818 ENCOUNTER FOR OTHER PREPROCEDURAL EXAMIN 04/29/2017 ANN LONGORIA DO Ot Z11.2 ENCOUNTER FOR SCREENING FOR OTHER BACTER 04/29/2017 ANN LONGORIA DO Ot O34.21 MATERNAL CARE FOR SCAR FROM PREVIOUS JAYME 04/29/2017 ANN LONGORIA DO Ot Z01.818 ENCOUNTER FOR OTHER PREPROCEDURAL EXAMIN 04/29/2017 ANN LONGORIA DO Ot Z11.2 ENCOUNTER FOR SCREENING FOR OTHER BACTER 05/02/2017 JOSETTE GALEANA CUTTER TENDER Ot N83.201 UNSPECIFIED OVARIAN CYST, RIGHT SIDE 05/02/2017 JOSETTE GALEANAP Ot N83.202 UNSPECIFIED OVARIAN CYST, LEFT SIDE 05/02/2017 JOSETTE GALEANAP Ot R10.32 LEFT LOWER QUADRANT PAIN 05/12/2017 JOSETTE GALEANAP Ot N83.201 UNSPECIFIED OVARIAN CYST, RIGHT SIDE 05/12/2017 JOSETTE GALEANAP Ot N83.202 UNSPECIFIED OVARIAN CYST, LEFT SIDE 05/12/2017 JOSETTE GALEANAP Ot R10.32 LEFT LOWER QUADRANT PAIN 06/16/2017 JOSETTE GALEANAP Ot N83.201 UNSPECIFIED OVARIAN CYST, RIGHT SIDE 06/16/2017 JOSETTE GALEANAP Ot N83.202 UNSPECIFIED OVARIAN CYST, LEFT SIDE 06/16/2017 JOSETTE GALEANAP Ot R10.32 LEFT LOWER QUADRANT PAIN Procedures Code Description Performed By Performed On 74.1 LOW CERVICAL 12/08/2011 59129 THERAPUTIC INJ SQ/IM 11/28/2012 J2930 SOLUMEDROL INJ 11/28/2012 47290 URINE TEST (IN- HOUSE) 12/14/2012 80273 TEST, URINE (IN- HOUSE) 10/10/2014 64P33L8 EXTRACTION OF POC, LOW CERVICAL, OPEN AP 06/09/2015 Results Test Result Range CBC With Differential/Platelet - 04/02/16 08:20 WBC 9.5 x10E3/uL 3.4-10.8 RBC 4.83 x10E6/uL 3.77-5.28 Hemoglobin 13.3 g/dL 11.1-15.9 Hematocrit 40.9 % 34.0-46.6 MCV 85 fL 79-97 MCH 27.5 pg 26.6-33.0 MCHC 32.5 g/dL 31.5-35.7 RDW 14.7 % 12.3-15.4 Platelets 202 x10E3/uL 150-379 Neutrophils 62 % Lymphs 25 % Monocytes 11 % Eos 2 % Basos 0 % Neutrophils (Absolute) 5.9 x10E3/uL 1.4-7.0 Lymphs (Absolute) 2.3 x10E3/uL 0.7-3.1 Monocytes(Absolute) 1.0 x10E3/uL 0.1-0.9 Eos (Absolute) 0.2 x10E3/uL 0.0-0.4 Baso (Absolute) 0.0 x10E3/uL 0.0-0.2 Immature Granulocytes 0 % Immature Grans (Abs) 0.0 x10E3/uL 0.0-0.1 Comp. Metabolic Panel (14) - 04/02/16 08:20 Glucose, Serum 82 mg/dL 65-99 BUN 10 mg/dL 6-20 Creatinine, Serum 0.78 mg/dL 0.57-1.00 eGFR If NonAfricn Am 107 mL/min/1.73 >59 eGFR If Africn Am 123 mL/min/1.73 >59 BUN/Creatinine Ratio 13 8-20 Sodium, Serum 141 mmol/L 134-144 Potassium, Serum 4.1 mmol/L 3.5-5.2 Chloride, Serum 104 mmol/L 97-108 Carbon Dioxide, Total 21 mmol/L 18-29 Calcium, Serum 9.3 mg/dL 8.7-10.2 Protein, Total, Serum 6.4 g/dL 6.0-8.5 Albumin, Serum 4.2 g/dL 3.5-5.5 Globulin, Total 2.2 g/dL 1.5-4.5 A/G Ratio 1.9 1.1-2.5 Bilirubin, Total 0.4 mg/dL 0.0-1.2 Alkaline Phosphatase, S 70 IU/L 39-117 AST (SGOT) 12 IU/L 0-40 ALT (SGPT) 13 IU/L 0-32 Lipid Panel - 04/02/16 08:20 Cholesterol, Total 179 mg/dL 100-199 Triglycerides 119 mg/dL 0-149 HDL Cholesterol 44 mg/dL >39 VLDL Cholesterol Cirilo 24 mg/dL 5-40 LDL Cholesterol Calc 111 mg/dL 0-99 TSH - 04/02/16 08:20 TSH 0.888 uIU/mL 0.450-4.500 SUREPATH PAP RFX HPV mRNA E6/E7 - 09/19/17 18:34 CLINICAL INFORMATION: NO C/O NRG LMP: NO PERIODS NRG PREV. PAP: 07/2015 NRG PREV. BX: NRG SOURCE: [employer] NRG STATEMENT OF ADEQUACY: NRG INTERPRETATION/RESULT: NRG FORKLIFT MECHANIC: NRG CULTURE, URINE - 06/01/18 17:21 CULTURE, URINE, ROUTINE SEE NOTE NRG Encounters ACCT No. Visit Date/Time Discharge Status Pt. Type Provider Facility Loc./Unit Complaint [id number] 11/05/2014 17:18:00 11/05/2014 23:59:59 CLS Outpatient ANJELICA VÁSQUEZ APRN [id number] 10/10/2014 14:13:00 10/10/2014 23:59:59 CLS Outpatient ASHWINI AN DO [id number] 04/29/2014 17:26:00 04/29/2014 23:59:59 CLS Outpatient WILFREDO ALONSO APRN [id number] 08/07/2013 09:45:00 08/07/2013 23:59:59 CLS Outpatient ASHWINI AN DO [id number] 06/01/2013 08:26:00 06/01/2013 23:59:59 CLS Outpatient LEO GREGG MD [id number] 10/17/2012 11:00:00 10/17/2012 23:59:59 CLS Outpatient [id number] 10/09/2012 15:22:00 10/09/2012 23:59:59 CLS Outpatient [id number] 05/05/2012 11:13:00 05/05/2012 23:59:59 CLS Outpatient [id number] 12/14/2012 13:33:00 Document Registration [id number] 11/28/2012 09:41:00 Document Registration [id number] 11/20/2012 12:37:00 Document Registration [id number] 04/03/2016 08:07:00 Document Registration [id number] 04/29/2017 14:10:00 04/29/2017 23:59:59 CLS Outpatient JOSETTE GALEANA [facility] RAD LLQ ABD PAIN [id number] 06/09/2015 05:46:00 2015 11:10:00 DIS Inpatient ANN LONGORIA DO [facility] LDRP PREVIOUS SECTION [id number] 06/04/2015 12:48:00 06/04/2015 23:59:59 CLS Outpatient ANN LONGORIA DO [facility] PREOP PREVIOUS SECTION [id number] 05/28/2015 09:36:00 05/28/2015 10:30:00 DIS Outpatient ANN LONGORIA DO [facility] WSo C/O CONTRACTIONS [id number] 04/03/2014 07:14:00 04/03/2014 09:25:00 DIS Emergency DANIEL TURNER MD [facility] ER DIZZY [id number] 06/07/2013 10:55:00 06/07/2013 11:14:00 DIS Emergency NIYAH DEL REAL MD [facility] ER ABD PAIN [id number] 03/03/2013 22:37:00 03/04/2013 00:15:00 DIS Emergency DANIEL TURNER MD [facility] ER ABD PAIN [id number] 01/01/2013 15:55:00 01/01/2013 19:16:00 DIS Emergency VAELNTE DURAN [facility] ER HEADACHE [id number] 04/11/2012 19:31:00 Document Registration [id number] 02/14/2012 13:25:00 Document Registration [id number] 12/07/2011 17:56:00 Document Registration [id number] 11/28/2011 16:12:00 Document Registration [id number] 10/06/2011 19:48:00 Document Registration [id number] 11/16/2010 00:11:00 Document Registration [id number] 07/27/2010 15:13:00 Document Registration [id number] 04/14/2010 17:53:00 Document Registration [id number] 04/13/2010 13:58:00 Document Registration [id number] 07/02/2018 12:25:00 07/02/2018 23:59:59 [facility] Outpatient JOSETTE GALEANA [facility]N [facility] [id number] 06/01/2018 16:35:00 Document Registration [id number] 09/19/2017 16:00:00 Document Registration
[2018-07-24 21:14] VITALS: BP 123/82
== END 2018-07-24 21:14 | disposition home or self-care (01) ==
LOC: EDUNIT# 20:02 → ER 20:03
DX: S70.361A Insect bite (nonvenomous), right thigh, initial encounter (principal); Z88.8 Allergy status to other drugs, medicaments and biological substances; Z90.89 Acquired absence of other organs; Z90.49 Acquired absence of other specified parts of digestive tract; Z87.440 Personal history of urinary (tract) infections; Z82.49 Family history of ischemic heart disease and other diseases of the circulatory system; W57.XXXA Bitten or stung by nonvenomous insect and other nonvenomous arthropods, initial encounter
CPT/HCPCS: 99283

== ENCOUNTER 2019-04-06 09:43 | Emergency (ER) | payer BC ==
[~2019-04-06] VITALS: Ht 160 cm; Wt 100.0 kg
[2019-04-06] MEDS ORDERED: PHEN-483 PO (10:15)
[2019-04-06] MEDS ORDERED: KETOROLAC 30 MG/ML VIAL IVP STA (10:29)
[2019-04-06 10:38] LABS: BILIRUBIN,URINE NEGATIVE (NEGATIVE); CLARITY,URINE CLEAR; COLOR,URINE YELLOW; GLUCOSE, URINE (UA) NEGATIVE (NEGATIVE); KETONES,URINE NEGATIVE (NEGATIVE); LEUKOCYTE ESTERASE ,URINE 1+ (NEGATIVE); NITRITE,URINE NEGATIVE (NEGATIVE); PH,URINE 6.5 (5-9); PROTEIN,URINE NEGATIVE (NEGATIVE); UROBILINOGEN,URINE 4 MG/DL (NORMAL)
[2019-04-06 10:40] LABS: BASOPHILS # (AUTO) 0.1 10^3/uL (0.0-0.1); BASOPHILS % (AUTO) 1 % (0-10); EOSINOPHILS # (AUTO) 0.3 10^3/uL (0.0-0.3); EOSINOPHILS % (AUTO) 3 % (0-10); HEMATOCRIT 41 % (35-52); HEMOGLOBIN 13.7 G/DL (11.5-16.0); LYMPHOCYTES # (AUTO) 2.7 X 10^3 (1.0-4.0); LYMPHOCYTES % (AUTO) 27 % (12-44); MEAN CORPUSCULAR HEMOGLOBIN 29 PG (25-34); MEAN CORPUSCULAR HGB CONC 33 G/DL (32-36); MEAN CORPUSCULAR VOLUME 87 FL (80-99); MEAN PLATELET VOLUME 12.2 FL (7.4-10.4); MONOCYTES # (AUTO) 0.9 X 10^3 (0.0-1.0); MONOCYTES % (AUTO) 9 % (0-12); NEUTROPHILS % (AUTO) 61 % (42-75); PLATELET COUNT 231 10^3/uL (130-400); RED CELL DISTRIBUTION WIDTH 13.7 % (10.0-14.5)
[2019-04-06 10:52] LABS: ALANINE AMINOTRANSFERASE 28 U/L (0-55); ALBUMIN 4.3 GM/DL (3.2-4.5); ALKALINE PHOSPHATASE 70 U/L (40-136); BILIRUBIN,TOTAL 0.4 MG/DL (0.1-1.0); BUN/CREATININE RATIO 17; CALCIUM 9.7 MG/DL (8.5-10.1); CARBON DIOXIDE 26 MMOL/L (21-32); CHLORIDE 107 MMOL/L (98-107); CREATININE SERUM 0.72 MG/DL (0.60-1.30); GFR ESTIMATED > 60; GLUCOSE 92 MG/DL (70-105); POTASSIUM 4.3 MMOL/L (3.6-5.0); SODIUM 139 MMOL/L (135-145); TOTAL PROTEIN 7.2 GM/DL (6.4-8.2)
[2019-04-06 10:56] LABS: BACTERIA,URINE FEW /HPF
--- NOTE | 2019-04-06 11:33 | ED Abdominal Pain ---
General Chief Complaint: Abdominal/GI Problems Stated Complaint: LOWER LEFT ABD PAIN Nursing Triage Note: PT AMBULATED TO ROOM 6 PT CO OF L LOWER ABD PAIN TO L SIDE. STARTED THIS AM RATES PAIN 5/10. Sepsis Screen: No Definite Risk Source of Information: Patient Exam Limitations: No Limitations History of Present Illness Date Seen by Provider: Apr 06, 2019 Time Seen by Provider: 10:28 Initial Comments Here with report of left lower quadrant abdominal pain that started this morning. Worse with movement and better with rest. Hurts when sitting all the way up or lying all the way back. Denies nausea, vomiting, dysuria or diarrhea. She did drive here. Did have hormone impregnated IUD placed approximately 3 Weeks ago. Timing/Duration: 4-6 Hours Severity/Quality: Moderate, Aching, Sharp Location: LLQ Radiation: No Radiation Activities at Onset: None Modifying Factors: Worsens With Lying down, Worsens With Movement Associated Symptoms: No Back Pain, No Fever/Chills, No Nausea/Vomiting, No Swelling/Mass in Abdomen, No Weakness Allergies and Home Medications Allergies Coded Allergies: sumatriptan (Unverified Adverse Reaction, Intermediate, 01/01/13) sumatriptan succinate (Unverified Adverse Reaction, Intermediate, 01/01/13) Patient Home Medication List Home Medication List Reviewed: Yes Review of Systems Review of Systems Constitutional: see HPI; No chills, No fever EENTM: No Symptoms Reported Respiratory: No Symptoms Reported Cardiovascular: No Symptoms Reported Gastrointestinal: Abdominal Pain; Denies Nausea, Denies Vomiting Genitourinary: No Symptoms Reported Musculoskeletal: no symptoms reported Psychiatric/Neurological: No Symptoms Reported Past Vsgrarj-Rtuchn-Kfygjo Hx Past Med/Social Hx: Reviewed Nursing Past Med/Soc Hx Patient Social History Alcohol Use: Denies Use Recreational Drug Use: No Smoking Status: Never a Smoker 2nd Hand Smoke Exposure: No Recent Foreign Travel: No Contact w/Someone Who Travel: No Recent Infectious Disease Expo: No Recent Hopitalizations: No Physical Abuse: No Sexual Abuse: No Immunizations Up To Date Tetanus Booster (TDap): Less than 5yrs Date of Influenza Vaccine: Apr 17, 2011 Past Medical History Surgeries: Yes (appendectomy, tonsilectomy/andenoids) Appendectomy, Section, Tonsillectomy Respiratory: No Cardiac: No Neurological: Yes : No (IUD) Reproductive Disorders: No UTI-Chronic Gastrointestinal: No Musculoskeletal: No Endocrine: No Cancer: No Psychosocial: No Integumentary: No Blood Disorders: No Family Medical History Reviewed Nursing Family Hx Alzheimer's disease grandparents Cardiovascular disease grandparents Cataracts grandparents Colon cancer grandparents Diabetes mellitus grandparents Drug abuse 19 FATHER 19 MOTHER Hypertension 19 MOTHER Myocardial infarction grandparents Respiratory disorder grandparents No Pertinent Family Hx Physical Exam Vital Signs Vital Signs - First Documented 04/06/19 09:52 Temp 37.4 Pulse 88 Resp 18 B/P (MAP) 103/61 (75) Pulse Ox 98 Capillary Refill : Less Than 3 Seconds Height/Weight/BMI Height: 5'3.00" Weight: 209lbs. oz. 94.540433xi; 39.00 BMI Method:Stated General Appearance: WD/WN, mild distress HEENT: PERRL/EOMI, pharynx normal Neck: full range of motion, supple Respiratory: lungs clear, normal breath sounds Cardiovascular: regular rate, rhythm, no murmur Gastrointestinal: soft; No guarding, No rebound; tenderness (left lower quadrant) Extremities: non-tender, normal inspection Back: normal inspection, no CVA tenderness, no vertebral tenderness Neurologic/Psychiatric: alert, oriented x 3 Skin: normal color, warm/dry Progress/Results/Core Measures Results/Orders Lab Results Laboratory Tests Test 04/06/19 09:50 04/06/19 10:10 Range/Units Urine Color YELLOW Urine Clarity CLEAR Urine pH 6.5 5-9 Urine Specific Amalia 1.015 L 1.016-1.022 Urine Protein NEGATIVE NEGATIVE Urine Glucose (UA) NEGATIVE NEGATIVE Urine Ketones NEGATIVE NEGATIVE Urine Nitrite NEGATIVE NEGATIVE Urine Bilirubin NEGATIVE NEGATIVE Urine Urobilinogen 4 H NORMAL MG/DL Urine Leukocyte Esterase 1+ H NEGATIVE Urine RBC (Auto) NEGATIVE NEGATIVE Urine RBC NONE /HPF Urine WBC 5-10 H /HPF Urine Squamous Epithelial Cells 10-25 H /HPF Urine Crystals NONE /LPF Urine Bacteria FEW H /HPF Urine Casts NONE /LPF Urine Mucus SMALL H /LPF Urine Culture Indicated YES White Blood Count 10.0 4.3-11.0 10^3/uL Red Blood Count 4.77 4.35-5.85 10^6/uL Hemoglobin 13.7 11.5-16.0 G/DL Hematocrit 41 35-52 % Mean Corpuscular Volume 87 80-99 FL Mean Corpuscular Hemoglobin 29 25-34 PG Mean Corpuscular Hemoglobin Concent 33 32-36 G/DL Red Cell Distribution Width 13.7 10.0-14.5 % Platelet Count 231 130-400 10^3/uL Mean Platelet Volume 12.2 H 7.4-10.4 FL Neutrophils (%) (Auto) 61 42-75 % Lymphocytes (%) (Auto) 27 12-44 % Monocytes (%) (Auto) 9 0-12 % Eosinophils (%) (Auto) 3 0-10 % Basophils (%) (Auto) 1 0-10 % Neutrophils # (Auto) 6.0 1.8-7.8 X 10^3 Lymphocytes # (Auto) 2.7 1.0-4.0 X 10^3 Monocytes # (Auto) 0.9 0.0-1.0 X 10^3 Eosinophils # (Auto) 0.3 0.0-0.3 10^3/uL Basophils # (Auto) 0.1 0.0-0.1 10^3/uL Sodium Level 139 135-145 MMOL/L Potassium Level 4.3 3.6-5.0 MMOL/L Chloride Level 107 98-107 MMOL/L Carbon Dioxide Level 26 21-32 MMOL/L Anion Gap 6 5-14 MMOL/L Blood Urea Nitrogen 12 7-18 MG/DL Creatinine 0.72 0.60-1.30 MG/DL Estimat Glomerular Filtration Rate > 60 BUN/Creatinine Ratio 17 Glucose Level 92 70-105 MG/DL Calcium Level 9.7 8.5-10.1 MG/DL Corrected Calcium 9.5 8.5-10.1 MG/DL Total Bilirubin 0.4 0.1-1.0 MG/DL Aspartate Amino Transf (AST/SGOT) 20 5-34 U/L Alanine Aminotransferase (ALT/SGPT) 28 0-55 U/L Alkaline Phosphatase 70 40-136 U/L Total Protein 7.2 6.4-8.2 GM/DL Albumin 4.3 3.2-4.5 GM/DL My Orders Orders - DANIEL TURNER MD Ua Culture If Indicated (04/06/19 10:29) Acute Abd Series (04/06/19 10:29) Cbc With Automated Diff (04/06/19 10:29) Comprehensive Metabolic Panel (04/06/19 10:29) Ketorolac Injection (Toradol Injection) (04/06/19 10:29) Urine Culture (04/06/19 09:50) Us Pelvic (Non Ob)[id number] (04/06/19 11:16) Vital Signs/I&O 04/06/19 09:52 Temp 37.4 Pulse 88 Resp 18 B/P (MAP) 103/61 (75) Pulse Ox 98 Blood Pressure Mean: 75 Progress Progress Note : Progress Note Seen and evaluated. UA and UCG ordered. IV, labs and Toradol 30 mg IV ordered. We will get acute abdominal series. Given patient's history we'll go ahead and get a pelvic ultrasound to rule out ovarian cyst and torsion as well. Pain is improved after Toradol. Monitor patient. 1306: Pain is still better. Ultrasound results reviewed with patient. She sees Araceli Rodriguez at the [facility]. I will send a copy of the ultrasound results and chart over to them. The low position of the IUD may just be her placement versus needs to be advanced. She may also be near starting menstrual cycle as she went from Depo shot to the IUD. Patient will call her provider for appointment. She has one next week but may need one earlier. Discharged home with return precautions. Patient verbalize underst anding instructions and agreement with plan. Diagnostic Imaging Diagonstic Imaging: Xray Plain Films/CT/US/NM/MRI: chest, abdomen Comments [facility] [place], [place] NAME: REJI ORTIZ [facility] REC#: [id number] PT STATUS: REG ER : 1990 PHYSICIAN: DANIEL TURNER MD ADMIT DATE: 04/06/19/ER Draft Date of Exam:04/06/19 ACUTE ABD SERIES INDICATION: Lower abdominal pain on the left side as well as nausea. TIME OF EXAM: 12:14 p.m. FINDINGS: Heart size is normal. Lungs are clear. No free air is identified. The bowel gas pattern is nonobstructed. No pathologic calcifications are seen. Postsurgical changes in the right abdomen are noted. IUD is noted in the midline of the pelvis. IMPRESSION: No acute abnormalities detected. Dictated on workstation # [id number] Dict: 04/06/19 1224 Trans: 04/06/19 1228 [facility] [id number] Interpreted by: OFELIA PLATT MD Electronically signed by: Jamie Imaging: Ultrasound Plain Films/CT/US/NM/MRI: pelvis Comments NAME: REJI ORTIZ [facility] REC#: [id number] PT STATUS: REG ER : 1990 PHYSICIAN: DANIEL TURNER MD ADMIT DATE: 04/06/19/ER Draft Date of Exam:04/06/19 US PELVIC (NON OB)[id number] ULTRASOUND EXAMINATION: US PELVIC (NON OB)[id number] INDICATION: Left lower quadrant abdominal/pelvic pain. Patient reports recent placement of an IUD on 03/21/2019. Patient reports her last menstrual period is unknown. COMPARISON: Pelvic ultrasound performed on 04/29/2017. TECHNIQUE: Transabdominal and transvaginal ultrasound with grayscale and color Doppler analysis. FINDINGS: UTERUS: The uterus measures 8.0 x 4.5 x 3.1 cm and demonstrates normal echotexture and configuration. No focal myometrial abnormality is demonstrated. An IUD is demonstrated in the endometrial canal, which appears to be slightly low in position, centered in the lower uterine segment. IUD does not appear to be in the fundal endometrium. There is mild fluid distention of the fundal endometrial canal. The endometrium does not appear abnormally thickened, with a double layer thickness of approximately 0.6 cm. RIGHT OVARY: The right ovary measures 2.7 x 2.2 x 2.1 cm and demonstrates normal echotexture, without evidence of pathologic cyst or mass. The right ovary demonstrates normal color Doppler appearance. LEFT OVARY: The left ovary measures 2.3 x 2.0 x 2.5 cm and demonstrates normal echotexture, without evidence of pathologic cyst or mass. The left ovary demonstrates normal color Doppler appearance. ADNEXA: Normal. No adnexal masses or fluid collections. IMPRESSION: An IUD is demonstrated, which appears to be low in position, centered in the lower uterine segment. Recommend correlation with physical exam and gynecologic consult, as indicated. There is mild fluid distention of the fundal endometrial canal. The endometrium does not appear abnormally thickened and does not demonstrate increased vascularity. Recommend correlation with menstrual history. Pelvic ultrasound is otherwise within normal limits. Dictated on workstation # [id number] Dict: 04/06/19 1221 Trans: 04/06/19 1251 [facility] [id number] Interpreted by: JASMEET SANTOS DO Electronically signed by: Departure Impression Primary Impression: Left lower quadrant abdominal pain Disposition: HOME, SELF-CARE Condition: Improved Departure-Patient Inst. Referrals: [facility] (PCP/Family) Primary Care Physician CHANELLE LYNCH DO Patient Instructions: Acute Abdomen (Belly Pain), Adult (DC) Add. Discharge Instructions: All discharge instructions reviewed with patient and/or family. Voiced unde rstanding. Follow-up with Araceli Rodriguez. Call her office today for appointment. You may take ibuprofen 800 mg every 8 hours as needed for pain. You may take Tylenol/acetaminophen 1000 mg every 8 hours as needed for pain. Drink plenty of fluids. Return for worse pain, vomiting, weakness, breathing problems or other concerns as needed. Copy Copies To 1: CHANELLE LYNCH TIMOTHY D MD Apr 06, 2019 11:33
--- NOTE | 2019-04-06 12:28 | Diagnostic Imaging Report ---
INDICATION: Lower abdominal pain on the left side as well as nausea. TIME OF EXAM: 12:14 p.m. FINDINGS: Heart size is normal. Lungs are clear. No free air is identified. The bowel gas pattern is nonobstructed. No pathologic calcifications are seen. Postsurgical changes in the right abdomen are noted. IUD is noted in the midline of the pelvis. IMPRESSION: No acute abnormalities detected. Dictated by: Dictated on workstation # [id number]
--- NOTE | 2019-04-06 12:52 | Diagnostic Imaging Report ---
ULTRASOUND EXAMINATION: US PELVIC (NON OB)[id number] INDICATION: Left lower quadrant abdominal/pelvic pain. Patient reports recent placement of an IUD on 03/21/2019. Patient reports her last menstrual period is unknown. COMPARISON: Pelvic ultrasound performed on 04/29/2017. TECHNIQUE: Transabdominal and transvaginal ultrasound with grayscale and color Doppler analysis. FINDINGS: UTERUS: The uterus measures 8.0 x 4.5 x 3.1 cm and demonstrates normal echotexture and configuration. No focal myometrial abnormality is demonstrated. An IUD is demonstrated in the endometrial canal, which appears to be slightly low in position, centered in the lower uterine segment. IUD does not appear to be in the fundal endometrium. There is mild fluid distention of the fundal endometrial canal. The endometrium does not appear abnormally thickened, with a double layer thickness of approximately 0.6 cm. RIGHT OVARY: The right ovary measures 2.7 x 2.2 x 2.1 cm and demonstrates normal echotexture, without evidence of pathologic cyst or mass. The right ovary demonstrates normal color Doppler appearance. LEFT OVARY: The left ovary measures 2.3 x 2.0 x 2.5 cm and demonstrates normal echotexture, without evidence of pathologic cyst or mass. The left ovary demonstrates normal color Doppler appearance. ADNEXA: Normal. No adnexal masses or fluid collections. IMPRESSION: An IUD is demonstrated, which appears to be low in position, centered in the lower uterine segment. Recommend correlation with physical exam and gynecologic consult, as indicated. There is mild fluid distention of the fundal endometrial canal. The endometrium does not appear abnormally thickened and does not demonstrate increased vascularity. Recommend correlation with menstrual history. Pelvic ultrasound is otherwise within normal limits. Dictated by: Dictated on workstation # [id number]
[2019-04-06 13:21] VITALS: BP 115/72
== END 2019-04-06 13:19 | disposition home or self-care (01) ==
LOC: EDUNIT# 09:43 → ER 09:44
DX: R10.32 Left lower quadrant pain (principal); Z88.8 Allergy status to other drugs, medicaments and biological substances; Z90.49 Acquired absence of other specified parts of digestive tract; Z90.89 Acquired absence of other organs; Z87.440 Personal history of urinary (tract) infections; Z82.49 Family history of ischemic heart disease and other diseases of the circulatory system; Z80.0 Family history of malignant neoplasm of digestive organs
CPT/HCPCS: 36415; 74022; 76856; 80053; 81000; 84703; 85025; 87088